=== PATIENT | female | born 1955 | race Caucasian/White ===

== ENCOUNTER 2020-05-29 11:00 | Outpatient (REF) | payer MEDICARE, SELFPAY ==
[2020-05-29 13:57] LABS: MANUAL DIFF FLAG NO
[2020-05-29 14:13] LABS: Basophils Absolute Auto 0.1 X10*3/uL (0.0-0.2); Basophils Percent Auto 0.6 % (0-2); Eosinophils Absolute Auto 0.2 X10*3/uL (0.0-0.4); Eosinophils Percent Auto 1.6 % (0-4); Hemoglobin 13.3 g/dl (12.0-16.0); Imm Gran Abs Auto 0.03 X10*3/uL (0.00-0.03); Imm Gran Pct Auto 0.3 % (0.0-0.4); Lymphocytes Absolute Auto 3.6 X10*3/uL (1.2-4.9); Lymphocytes Percent Auto 36.2 % (20-40); Mean Corpuscular HGB Conc 31.7 g/dl (31.0-35.0); Mean Corpuscular Hemoglobin 30.2 pg (27.0-33.0); Mean Corpuscular Volume 95.2 fL (80-98); Mean Platelet Volume 8.8 fL (9.4-12.3); Monocytes Absolute Auto 0.8 X10*3/uL (0.1-1.2); Monocytes Percent Auto 7.8 % (2-11); Neutrophils Absolute Auto 5.4 X10*3/uL (2.0-8.3); Neutrophils Percent Auto 53.5 % (45-73); Platelet Count 316 X10*3/uL (160-400); Red Blood Count 4.41 X10*6/uL (4.20-5.50); Red Cell Distribution Width 12.8 % (11.0-16.0)
[2020-05-29 14:24] LABS: Alanine Aminotransferase 25 U/L (0-31); Albumin Level 4.6 g/dL (3.5-5.0); Alkaline Phosphatase 68 U/L (39-117); Anion Gap 12 (12-20); Aspartate Amino Transferase 27 U/L (5-31); Bilirubin Total 0.6 mg/dL (0.0-1.0); Blood Urea Nitrogen 14 mg/dL (9-16); Calcium 9.6 mg/dL (8.4-10.2); Carbon Dioxide 24 mmol/L (22-29); Chloride 106 mmol/L (96-108); Cholesterol 179 mg/dL; Estimated Glomerular Filt Rate > 60; Glucose Fasting 107 mg/dL (60-99); HDL Cholesterol 48 mg/dL; LDL Cholesterol Calculated 112 mg/dl; Potassium 4.5 mmol/L (3.3-5.1); Sodium 137 mmol/L (135-145); Total Protein 7.5 g/dL (6.5-8.0); Triglycerides 99 mg/dL
[2020-05-29 14:46] LABS: Vitamin D 25-OH Total 25.5 ng/mL (>30)
== END 2020-05-29 11:01 | disposition home or self-care (01) ==
LOC: HO.HMGCLDS 11:00
PROVIDERS: PCP Internal Medicine; Visit Provider Internal Medicine
DX: Z00.01 Encounter for general adult medical examination with abnormal findings (principal); Z78.0 Asymptomatic menopausal state; M81.0 Age-related osteoporosis without current pathological fracture; D12.6 Benign neoplasm of colon, unspecified
CPT/HCPCS: 36415; 80053; 80061; 82306; 85025

== ENCOUNTER 2020-07-18 13:10 | Outpatient (REF) | payer MEDICARE, SELFPAY ==
--- NOTE | ~2020-07-18 | MM_ITS ---
EXAMINATION: MM SCREENING DIGITAL BREAST TOMOSYNTHESIS, BILATERAL CLINICAL INFORMATION: Screening. Asymptomatic. The lifetime risk of breast cancer based on the Tyrer-Cuzick Model is 5%. COMPARISON: Mammography: 04/22/2018, 04/13/2017, 03/12/2016 TECHNIQUE: Digital breast tomosynthesis is performed in both the craniocaudal and mediolateral oblique views along with computer-aided detection (CAD). Synthesized 2D images are generated from the tomosynthesis. FINDINGS: There are scattered areas of fibroglandular density (ACR BI-RADS breast composition Category b). There are no significant masses, abnormal calcifications, or other abnormalities. The axilla and skin contours are unremarkable. No significant changes. MM/MM tomosynthesis screening BI IMPRESSION: No mammographic evidence of malignancy. ASSESSMENT: BI-RADS 1: Negative RECOMMENDATION: Routine annual mammography screening. This patient's information was entered into a reminder system with a target due date for their next mammogram.
--- NOTE | ~2020-07-18 | MM_ITS ---
EXAMINATION: BONE DENSITOMETRY CLINICAL INDICATION: Age-related osteoporosis without current pathological fracture. COMPARISON: Previous BD dated 12/09/2018 and baseline BD dated 12/15/2006. TECHNIQUE: Using a [employer] DXA System (software version: 13.1) manufactured by [employer], dual-energy x-ray absorptiometry was performed of the lumbar spine and left hip. The images are of good technical quality. Summary results are attached. FINDINGS: AP SPINE L1-L4: Current: BMD 0.979 g/cm2, Z-score 0.2, T-score -1.7, osteopenia, 1.2% increase from previous, 0.8% increase from baseline (<5% change is not significant). Prior: BMD 0.967 g/cm2. Baseline: BMD 0.971 g/cm2. LEFT FEMUR, NECK: Current: BMD 0.653 g/cm2, Z-score -1.1, T-score -2.8, osteoporosis. Prior: BMD 0.679 g/cm2. Baseline: BMD 0.710 g/cm2. LEFT FEMUR, TOTAL: Current: BMD 0.702 g/cm2, Z-score -1.0, T-score -2.4, osteopenia, 0.4% increase from previous, 12.7% decrease from baseline (<5% change is not significant). Prior: BMD 0.699 g/cm2. Baseline: BMD 0.804 g/cm2. IDENTIFIED RISK FACTORS: Height loss. Menopause. HISTORY OF FRACTURE: None listed. MEDICATIONS: Multivitamin. Vitamin D. MM/XR DEXA axial skeleton IMPRESSION: 1. DIAGNOSIS: Osteoporosis based on the lowest T-score value of -2.8 in the femoral neck applying World Health Organization criteria. 2. 10-YEAR FRACTURE RISK PREDICTION, FRAX: Major osteoporotic fracture (clinical spine, forearm, hip or shoulder) 15.5%. Hip fracture 4.2%. 3. Treatment Recommendations: NOF guidelines recommend consideration for treatment in postmenopausal women and men age 50 and older presenting with the following: -A hip or vertebral (clinical or morphometric) fracture. -T-score less than or equal to -2.5 at the femoral neck or spine after appropriate evaluation to exclude secondary causes. -Low bone mass at the hip or spine and a 10-year fracture probability by FRAX of greater than or equal to 3% for hip fracture or greater than or equal to 20% for major osteoporotic fracture based on the [place] adapted WHO algorithm. 4. Other Recommendations: All treatment decisions require clinical judgment and consideration of individual patient factors, including patient preferences, comorbidities, previous drug use, risk factors not captured in the FRAX model (e.g. frailty, falls, vitamin D deficiency, increased bone turnover, interval significant decline in bone density) and possible under or overestimation of fracture risk by FRAX. Additional medical evaluation for secondary cause of low bone mineral density may be appropriate. FUTURE SCAN RECOMMENDATION: People with diagnosed cases of osteoporosis or at high risk for fracture should have regular bone mineral density tests. For patients eligible for Medicare, routine testing is allowed once every 2 years. The testing frequency can be increased to one year for patients who have rapidly progressing disease, those who are receiving or discontinuing medical therapy to restore bone mass, or have additional risk factors.
== END 2020-07-18 13:11 | disposition home or self-care (01) ==
LOC: HO.MAMMO 13:10
PROVIDERS: Visit Provider Internal Medicine
DX: M81.0 Age-related osteoporosis without current pathological fracture (principal); Z78.0 Asymptomatic menopausal state; Z12.31 Encounter for screening mammogram for malignant neoplasm of breast
CPT/HCPCS: 77063; 77067; 77080

== ENCOUNTER 2020-11-01 09:58 | Outpatient (REF) | payer MEDICARE, SELFPAY ==
[2020-11-01 11:32] LABS: Prothrombin Time 11.2 SEC (9.9-13.0)
[2020-11-04 13:51] LABS: Alpha Fetoprotein 3.6 ng/mL
== END 2020-11-01 09:59 | disposition home or self-care (01) ==
LOC: HO.HMGCLDS 09:58
PROVIDERS: PCP Internal Medicine; Visit Provider Internal Medicine
DX: K74.00 Hepatic fibrosis, unspecified (principal); Z86.19 Personal history of other infectious and parasitic diseases
CPT/HCPCS: 36415; 82105; 85610

== ENCOUNTER 2020-11-20 08:29 | Outpatient (REF) | payer MEDICARE, SELFPAY ==
--- NOTE | ~2020-11-20 | US_ITS ---
EXAMINATION: US ABDOMEN COMPLETE CLINICAL INFORMATION: History of hepatitis C. COMPARISON: CT abdomen and pelvis 06/29/2018. Ultrasound abdomen complete 11/26/2017 and 05/06/2016. TECHNIQUE: Real-time imaging of the abdominal viscera. FINDINGS: PANCREAS: The head and body the pancreas are normal. The tail is not well seen due to bowel gas. ABDOMINAL AORTA: The proximal, mid, and distal segments are normal in caliber. INFERIOR VENA CAVA: Visualized portions are normal. LIVER: The liver is normal in size. The liver contour is normal. Parenchymal echogenicity is normal. There are small cysts in the left lobe measuring 5 mm in the right lobe measuring 6 mm There is no intrahepatic biliary duct dilatation seen. GALLBLADDER: Not seen. The patient does not give history of cholecystectomy. COMMON BILE DUCT: Normal in caliber measuring 0.6 cm in diameter. RIGHT KIDNEY: Normal. No hydronephrosis. No renal calculi or focal parenchymal lesions. The kidney measures 9.5 cm in maximum dimension. LEFT KIDNEY: Normal. No hydronephrosis. No renal calculi or focal parenchymal lesions. The kidney measures 9.1 cm in maximum dimension. SPLEEN: Normal. The spleen measures 7.7 cm in maximum dimension. FREE FLUID: None. US/US abdomen complete IMPRESSION: 2 small liver cysts otherwise normal-appearing liver. Gallbladder not seen similar to previous exams. Limited visualization of the tail the pancreas.
== END 2020-11-20 08:30 | disposition home or self-care (01) ==
LOC: HO.US 08:29
PROVIDERS: PCP Internal Medicine; Visit Provider Internal Medicine
DX: K76.89 Other specified diseases of liver (principal); Z86.19 Personal history of other infectious and parasitic diseases
CPT/HCPCS: 76700

== ENCOUNTER 2020-12-04 08:13 | Day surgery (SDC) | payer MEDICARE, SELFPAY ==
[2020-11-29 11:03] VITALS: BMI 22.4
--- NOTE | 2020-12-03 12:35 | HO.ANESPROP2 ---
Documented by User: Christi Davalos NP 12/03/20 12:36 HPI - Anesthesia Eval Consult details Narrative: 65yo F for Colonoscopy PMFSH Active Problems Active Problems: All Active Problems (Updated 11/29/20 @ 11:06 by aJnia Browning RN) Other allergic rhinitis (Acute) Tubular adenoma of colon (Acute) Postmenopause (Acute) Breast cancer screening by mammogram (Acute) Osteoporosis (Acute) Past Medical History Medical History (Updated 11/29/20 @ 11:06 by Jania Browning RN) Breast cancer screening by mammogram COPD (chronic obstructive pulmonary disease) COVID-19 vaccine series completed Hepatitis C Osteoporosis Postmenopause Tubular adenoma of colon Surgical History Surgical History (Updated 11/29/20 @ 11:00 by Jania Browning RN) H/O colonoscopy Hx of blepharoplasty Hx of dilation and curettage Hx of tubal ligation Social History Social History (Updated 05/28/20 @ 11:25 by Tiana Chaudhari CMA) Are you a primary patient care nursing assistant to a significant other at home: No Do you presently have visiting nurse or other home services: No Alcohol intake: former Patient Tobacco Use Status: Former Tobacco user Tobacco use type: Cigarette Use of substances other than those prescribed or required for medical reasons: No Have you been hit, kicked, punched, or otherwise hurt by someone within the past year? If so, by whom?: No Are you DNR?: No Advance Directives Information Provided: Yes (informational brochure mailed) Advance Directives on File: No Recently lost weight without trying: No Eating poorly because of decreased appetite: No Nutrition Risks: No Nutritional Risk Poor oral hygiene: No (wears dentures) Meds Allergies Allergy/AdvReac Type Severity Reaction Status Date / Time No Known Allergies Allergy Mild N/A Verified 12/04/20 08:23 Home Medications Medication Instructions Recorded Confirmed Last Taken Type cholecalciferol (vitamin D3) 25 25 mcg PO DAILY 05/28/20 11/29/20 Unknown History mcg (1,000 unit) capsule magnesium oxide 400 mg PO DAILY 11/29/20 11/29/20 Unknown History Exam Exam Date and Time: December 03, 2020 1235 Height,Weight and Vital Signs: Height 5 ft 2 in Weight 55.701 kg Assessment and Plan Assessment Anesthesia Assessment: Chart Reviewed Documented by User: Mag Elizondo MD 12/04/20 09:34 PMFSH Past Medical History Medical History (Updated 11/29/20 @ 11:06 by Jania Browning RN) Breast cancer screening by mammogram COPD (chronic obstructive pulmonary disease) COVID-19 vaccine series completed Hepatitis C Osteoporosis Postmenopause Tubular adenoma of colon Family History Family history of problems with anesthesia: No Surgical History Surgical History (Updated 11/29/20 @ 11:00 by Jania Browning RN) H/O colonoscopy Hx of blepharoplasty Hx of dilation and curettage Hx of tubal ligation History of Problems with Anesthesia: No Social History Social History (Updated 05/28/20 @ 11:25 by Tiana Chaudhari CMA) Are you a primary patient care nursing assistant to a significant other at home: No Do you presently have visiting nurse or other home services: No Alcohol intake: former Patient Tobacco Use Status: Former Tobacco user Tobacco use type: Cigarette Use of substances other than those prescribed or required for medical reasons: No Have you been hit, kicked, punched, or otherwise hurt by someone within the past year? If so, by whom?: No Are you DNR?: No Advance Directives Information Provided: Yes (informational brochure mailed) Advance Directives on File: No Recently lost weight without trying: No Eating poorly because of decreased appetite: No Nutrition Risks: No Nutritional Risk Poor oral hygiene: No (wears dentures) Meds Allergies Allergy/AdvReac Type Severity Reaction Status Date / Time No Known Allergies Allergy Mild N/A Verified 12/04/20 08:23 Home Medications Medication Instructions Recorded Confirmed Last Taken Type cholecalciferol (vitamin D3) 25 25 mcg PO DAILY 05/28/20 11/29/20 Unknown History mcg (1,000 unit) capsule magnesium oxide 400 mg PO DAILY 11/29/20 11/29/20 Unknown History Exam Airway Mallampati Class: II TM Dist: >3cm Denture: Upper and Lower Heart: rrr Lungs: cta Assessment and Plan Assessment Anesthesia Assessment: Anesthesia Plan Discussed and Chart Reviewed Final Anesthetic Review Family History of Problems with Anesthesia: No History of Problems with Anesthesia: No NPO: Yes ASA Class: III Final Preanesthetic Review: No Changes in Pt Med Stat, Meds/Allgs Chart Reviewed and Consent Obtained/Reviewed Patient Risk: Intermediate Procedure Risk: Intermediate Anesthetic Plan Anesthetic Plan: MAC: Disposition: Standard PACU
[2020-12-04 08:24] VITALS: BP 123/84; PULSE 90; RESP 16; TEMP 36.8; O2SAT 98
[2020-12-04] MEDS: Lactated Ringers 1,000 ML 100 ML IVCONT (08:45)
[2020-12-04 10:22] VITALS: BP 83/56; PULSE 82; RESP 16; TEMP 37.2; O2SAT 97
--- NOTE | 2020-12-04 10:24 | PM.OP ---
Brief Operative Note Date of Service: 12/04/20 Pre-op diagnosis: Screening Post-op diagnosis: other (Colon polyps) Procedure: Colonoscopy to the cecum and TI with cold snare polypectomy and bx/removal of polyps Surgeon: Severo Carvalho Anesthesia: MAC Was an Final Installer Inspector used for this Procedure?: No Estimated blood loss (mL): 3.0 Pathology: other (A. Transverse colon polyp B. Ascending colon polyp C. Rectal polyp) Condition: stable Disposition: PACU
[2020-12-04 10:36] VITALS: BP 101/69; PULSE 72; RESP 16; TEMP 37.2; O2SAT 100
--- NOTE | 2020-12-04 10:36 | OP_ITS ---
SURGEON: Severo Carvalho MD INDICATIONS: The patient presents for evaluation of personal history of tubular adenoma of the colon and colorectal cancer screening. Full consent has been obtained from her for this, including risks of bleeding and perforation. PREOPERATIVE DIAGNOSIS: POSTOPERATIVE DIAGNOSIS: PROCEDURE PERFORMED: Colonoscopy to cecum and terminal ileum with snare polypectomy, and biopsy and removal of polyp. ESTIMATED BLOOD LOSS: COMPLICATIONS: ANESTHESIA: Monitored anesthesia care. ASSISTANTS: SPECIMENS: PREOPERATIVE DIAGNOSES: Personal history of colon polyps and colorectal cancer screening. POSTOPERATIVE DIAGNOSES: Personal history of colon polyps and colorectal cancer screening, colon polyps, diverticulosis, and internal hemorrhoids. DESCRIPTION OF PROCEDURE: The patient was placed in the left lateral decubitus position. The digital rectal exam revealed no abnormalities. The Olympus video pediatric colonoscope was entered into the rectum and advanced easily to the cecum. Once in the cecum, I did identify normal-appearing cecal pouch with appendiceal orifice and a normal-appearing ileocecal valve. The terminal ileum was cannulated and appeared normal. The scope was withdrawn back in the colon. The entire cecum and ileocecal valve appeared normal. The scope was slowly withdrawn assessing all mucosal surfaces carefully. Preparation was excellent. In the proximal ascending colon, was a flat approximately 3 or 4 mm polyp, which was biopsied and completely removed with cold biopsy forceps. In the transverse colon, was an approximately 5 or 6 mm polyp, which was removed with a cold snare polypectomy. There was no sign of any residual polyp nor bleeding. The polyp was retrieved by suction. There was a mild amount of sigmoid diverticulosis. There was no sign of any colitis nor angiodysplasia. In the rectum, there was an approximately 3 or 4 mm polyp, which was biopsied and completely removed with cold biopsy forceps. The scope was retroflexed visualizing internal hemorrhoids, but no other pathology. The scope was straightened and withdrawn from the patient. She tolerated the procedure well and was returned to recovery area in stable condition. IMPRESSION: 1. Colon polyps. 2. Diverticulosis. 3. Internal hemorrhoids. PLAN: The results of the pathology will be checked. I would recommend a repeat colonoscopy in 5 years. She was advised not to use any aspirin nor NSAIDs for 1 week. She was advised to see me in 1 year for followup in regard to her underlying previous chronic hepatitis C and some associated liver fibrosis. MD TETE Koroma/ANUJA / [id number]
== END 2020-12-04 10:58 | disposition home or self-care (01) ==
PROVIDERS: PCP Internal Medicine; Visit Provider Internal Medicine
PROC: 0DJD8ZZ Inspection of Lower Intestinal Tract, Via Natural or Artificial Opening Endoscopic (ICD-10-PCS; CPT 45378; principal; 2020-12-04 09:30)
DX: Z12.11 Encounter for screening for malignant neoplasm of colon (principal); Z86.010 Personal history of colon polyps; D12.2 Benign neoplasm of ascending colon; D12.3 Benign neoplasm of transverse colon; K62.1 Rectal polyp; K57.30 Diverticulosis of large intestine without perforation or abscess without bleeding; K64.8 Other hemorrhoids; K74.00 Hepatic fibrosis, unspecified; B18.2 Chronic viral hepatitis C; J44.9 Chronic obstructive pulmonary disease, unspecified; M81.0 Age-related osteoporosis without current pathological fracture; Z79.51 Long term (current) use of inhaled steroids; Z79.899 Other long term (current) drug therapy; Z87.891 Personal history of nicotine dependence
CPT/HCPCS: 45385; 45380; 88305

== ENCOUNTER 2020-12-16 07:10 | Outpatient (REF) | payer MEDICARE, SELFPAY ==
--- NOTE | ~2020-12-16 | CT_ITS ---
EXAMINATION: CT CHEST SCREENING CLINICAL INFORMATION: 50 pack year history. Former smoker. Quit 3 years ago. COMPARISON: Previous CT scan of the chest most recent May [address] of the abdomen and pelvis June 2018 TECHNIQUE: Multidetector volumetric CT imaging of the chest is performed without contrast using low dose technique. Additional 2D coronal and sagittal reformatted images and axial 3D maximum intensity projection (MIP) images are generated on the CT workstation. This CT examination was performed using dose optimization techniques as appropriate, variously including the following: *Automated exposure control *Adjustment of mA and/or kV according to patient size (this includes techniques or standardized protocols for targeted exams where dose is matched to indication/reason for exam; i.e. extremities or head) *Use of iterative reconstruction technique DLP: 37 mGy-cm FINDINGS: LUNGS: There is evidence of emphysema. There are small bilateral pulmonary nodules that are stable. The largest pulmonary nodule is a 4 mm right lower bladder subpleural right lower lobe nodule adjacent to the major fissure axial image 265 series 5 and in the right lower lobe for example axial image [id number] series 5 as subsequent late described.. There are clustered peribronchial nodules seen in the posterior medial right lower lobe. There is associated mild focal bronchiectasis may represent areas of bronchial soft tissue opacification or mucus plugging. This is similar to previous exam. There is scarring or chronic subsegmental atelectasis in the anterior segment of the right upper lobe and lingula. No tracheal or central endobronchial lesion is seen. No new pulmonary nodule is seen. MEDIASTINUM: There is mild coronary artery calcification. The mediastinum is otherwise normal. PLEURA: There is no pleural effusion. No pleural mass or thickening. AXILLA: No lymphadenopathy. UPPER ABDOMEN: There is a 6 mm low-attenuation lesion high in the left lobe of liver axial image 48 series 3. This is stable from previous CT June 2018 probably represents a cyst. Images through the upper abdomen are otherwise unremarkable. OSSEOUS STRUCTURES: There is mild curvature of the thoracic spine to the right and degenerative changes. CT/CT lung screening IMPRESSION: Emphysema. Stable small pulmonary nodules or micronodules. Stable clustered right lower lobe nodules in the posterior medial right lower lobe probably related to airways disease. Mild coronary artery calcification. ASSESSMENT: Lung-RADS category 2. RECOMMENDATION: Annual low-dose chest CT follow-up recommended.
== END 2020-12-16 07:11 | disposition home or self-care (01) ==
LOC: HO.CT 07:10
PROVIDERS: PCP Internal Medicine; Visit Provider Physician Assistant Medical
DX: Z12.2 Encounter for screening for malignant neoplasm of respiratory organs (principal); F17.210 Nicotine dependence, cigarettes, uncomplicated
CPT/HCPCS: 71271

== ENCOUNTER 2021-05-29 12:43 | Outpatient (REF) | payer MEDICARE, SELFPAY ==
[2021-05-29 13:57] LABS: Alanine Aminotransferase 24 U/L (0-31); Anion Gap 12 (12-20); Aspartate Amino Transferase 29 U/L (5-31); Blood Urea Nitrogen 16 mg/dL (9-16); Calcium 9.7 mg/dL (8.4-10.2); Carbon Dioxide 24 mmol/L (22-29); Chloride 108 mmol/L (96-108); Cholesterol 185 mg/dL; Estimated Glomerular Filt Rate > 60; Glucose Fasting 110 mg/dL (60-99); HDL Cholesterol 42 mg/dL; LDL Cholesterol Calculated 118 mg/dl; Potassium 4.2 mmol/L (3.3-5.1); Sodium 140 mmol/L (135-145); Triglycerides 128 mg/dL
[2021-05-29 14:13] LABS: Vitamin D 25-OH Total 38.3 ng/mL (>30)
== END 2021-05-29 12:44 | disposition home or self-care (01) ==
LOC: HO.HMGCLDS 12:43
PROVIDERS: PCP Internal Medicine; Visit Provider Internal Medicine
DX: Z00.01 Encounter for general adult medical examination with abnormal findings (principal); M81.0 Age-related osteoporosis without current pathological fracture; Z78.0 Asymptomatic menopausal state; Z71.89 Other specified counseling
CPT/HCPCS: 36415; 80048; 80061; 82306; 84450; 84460

== ENCOUNTER 2021-07-21 12:56 | Outpatient (REF) | payer MEDICARE, SELFPAY ==
--- NOTE | ~2021-07-21 | MM_ITS ---
EXAMINATION: MM SCREENING DIGITAL BREAST TOMOSYNTHESIS, BILATERAL CLINICAL INFORMATION: Screening. Asymptomatic. The lifetime risk of breast cancer based on the Tyrer-Cuzick Model is 6.2%. COMPARISON: Mammography: July 18, 2020 and studies dating back to November 08, 2013 TECHNIQUE: Digital breast tomosynthesis is performed in both the craniocaudal and mediolateral oblique views along with computer-aided detection (CAD). Synthesized 2D images are generated from the tomosynthesis. FINDINGS: There are scattered areas of fibroglandular density (ACR BI-RADS breast composition Category b). There are no significant masses, abnormal calcifications, or other abnormalities. MM/MM tomosynthesis screening BI IMPRESSION: There are no significant changes from prior study. ASSESSMENT: BI-RADS 1: Negative RECOMMENDATION: Routine annual mammography screening. This patient's information was entered into a reminder system with a target due date for their next mammogram.
== END 2021-07-21 12:57 | disposition home or self-care (01) ==
LOC: HO.MAMMO 12:56
PROVIDERS: PCP Internal Medicine; Visit Provider Internal Medicine
DX: Z12.31 Encounter for screening mammogram for malignant neoplasm of breast (principal)
CPT/HCPCS: 77063; 77067

== ENCOUNTER 2022-03-11 08:43 | Outpatient (REF) | payer MEDICARE, SELFPAY ==
[2022-03-11 11:18] LABS: MANUAL DIFF FLAG NO
[2022-03-11 11:33] LABS: Basophils Absolute Auto 0.1 X10*3/uL (0.0-0.2); Basophils Percent Auto 1.1 % (0-2); Eosinophils Absolute Auto 0.2 X10*3/uL (0.0-0.4); Eosinophils Percent Auto 1.8 % (0-4); Hematocrit 39.3 % (37.0-47.0); Hemoglobin 12.9 g/dl (12.0-16.0); Imm Gran Abs Auto 0.03 X10*3/uL (0.00-0.03); Imm Gran Pct Auto 0.4 % (0.0-0.4); Lymphocytes Absolute Auto 3.1 X10*3/uL (1.2-4.9); Lymphocytes Percent Auto 37.6 % (20-40); Mean Corpuscular HGB Conc 32.8 g/dl (31.0-35.0); Mean Corpuscular Hemoglobin 30.7 pg (27.0-33.0); Mean Corpuscular Volume 93.6 fL (80.0-98.0); Mean Platelet Volume 8.5 fL (9.4-12.3); Monocytes Absolute Auto 0.7 X10*3/uL (0.1-1.2); Neutrophils Absolute Auto 4.1 x10*3/uL (2.0-8.3); Neutrophils Percent Auto 51.1 % (45-73); Platelet Count 273 X10*3/uL (160-400); Red Cell Distribution Width 12.5 % (11.0-16.0); White Blood Count 8.1 X10*3/uL (4.8-10.8)
[2022-03-11 11:39] LABS: INTERNATIONAL NORM RATIO 1.1 (0.9-1.1); Prothrombin Time 12.6 SEC (10.0-13.1)
[2022-03-11 12:21] LABS: Alanine Aminotransferase 22 U/L (0-31); Albumin Level 4.2 g/dL (3.5-5.0); Alkaline Phosphatase 58 U/L (39-117); Aspartate Amino Transferase 27 U/L (5-31); Bilirubin Direct < 0.2 mg/dL (0.0-0.5); Bilirubin Total 0.5 mg/dL (0.0-1.0); Total Protein 6.9 g/dL (6.5-8.0)
[2022-03-13 14:02] LABS: Alpha Fetoprotein 2.9 ng/mL
[2022-03-17 16:34] LABS: FIB-ALT 21 U/L (6-29); FIB-Alpha-2-Macroglobulin 309 mg/dL (106-279); FIB-Apolipoprotein A1 142 mg/dL (101-198); FIB-GGT 12 U/L (3-65); FIB-Haptoglobin 137 mg/dL (43-212); FIB-Total Bilirubin 0.4 mg/dL (0.2-1.2); Liver Fibrosis Score 0.32; Liver Fibrosis Stage F1-F2; Nec Inflam Act Grade A0; Nec Inflam Act Score 0.09
== END 2022-03-11 08:44 | disposition home or self-care (01) ==
LOC: HO.HMGCLDS 08:43
PROVIDERS: PCP Internal Medicine; Visit Provider Internal Medicine
DX: K74.00 Hepatic fibrosis, unspecified (principal); Z86.19 Personal history of other infectious and parasitic diseases
CPT/HCPCS: 36415; 80076; 81596; 82105; 85025; 85610

== ENCOUNTER 2022-03-13 07:44 | Outpatient (REF) | payer MEDICARE, SELFPAY ==
--- NOTE | ~2022-03-13 | CT_ITS ---
EXAMINATION: CT CHEST SCREENING CLINICAL INFORMATION: Nicotine dependence, cigarettes, uncomplicated; 1 Pack per day x 50 years. COMPARISON: None. TECHNIQUE: Multidetector volumetric CT imaging of the chest is performed without contrast using low dose technique. Additional 2D coronal and sagittal reformatted images and axial 3D maximum intensity projection (MIP) images are generated on the CT workstation. This CT examination was performed using dose optimization techniques as appropriate, variously including the following: *Automated exposure control *Adjustment of mA and/or kV according to patient size (this includes techniques or standardized protocols for targeted exams where dose is matched to indication/reason for exam; i.e. extremities or head) *Use of iterative reconstruction technique DLP: 43 mGy-cm FINDINGS: LUNGS: The lungs are well-expanded and clear of acute pneumonic process. There are no pulmonary nodules, mass or consolidation. Minimal atelectatic changes seen in the right lung base. There is a 1 mm punctate calcification right lower lobe. MEDIASTINUM: The thyroid lobes are symmetrical and normal. The central trachea and the bronchi are widely patent. The heart size and the great vessels are normal caliber. No abnormal size mediastinal or hilar lymphadenopathy seen. CORONARY ARTERY CALCIFICATION: There is mild coronary artery calcifications present. PLEURA: There is no pleural effusion. No pleural mass or thickening. AXILLA: No lymphadenopathy. UPPER ABDOMEN: Visualized liver, spleen, pancreas and bilateral adrenal glands are unremarkable. OSSEOUS STRUCTURES: No aggressive lytic or sclerotic process seen. CT/CT lung screening IMPRESSION: Minimal atelectatic changes right lung base. No pulmonary nodule, mass or abnormal mediastinal adenopathy. ASSESSMENT: Lung-RADS category 1: Negative RECOMMENDATION: Low-dose annual CT chest.
== END 2022-03-13 07:45 | disposition home or self-care (01) ==
LOC: HO.CT 07:44
PROVIDERS: PCP Internal Medicine; Visit Provider Physician Assistant Medical
DX: Z12.2 Encounter for screening for malignant neoplasm of respiratory organs (principal); F17.210 Nicotine dependence, cigarettes, uncomplicated
CPT/HCPCS: 71271

== ENCOUNTER 2022-03-31 07:45 | Outpatient (REF) | payer MEDICARE, SELFPAY ==
--- NOTE | ~2022-03-31 | US_ITS ---
EXAMINATION: US COMPLETE ABDOMEN WITH LIVER ELASTOGRAPHY CLINICAL INFORMATION: Hepatitis C and fibrosis COMPARISON: Previous abdominal ultrasound most recent November [address] of the abdomen and pelvis June 2018 TECHNIQUE: Real-time imaging of the abdominal viscera. Noninvasive ultrasound liver fibrosis assessment is performed using [employer] point quantification shear wave elastography (2D-SWE) with a C5-2 MHz transducer. Multiple elastography samples are obtained. FINDINGS: PANCREAS: The visualized pancreatic head and body are normal in appearance. The remainder of the pancreas is obscured from visualization by the overlying bowel gas. ABDOMINAL AORTA: The proximal, middle, and distal aortic segments are normal in caliber. There is evidence of atherosclerotic disease. INFERIOR VENA CAVA: Visualized portions are normal. LIVER: There are 2 small cysts measuring 5 mm and 7 x 6 x 9 mm liver. No other focal liver lesion. The liver is normal in size, shape and echotexture. The right lobe measures 11 cm in length. The left lobe measures 7 cm in length. Portal flow is normal/hepatopedal Shear wave liver elastography median stiffness is 1.8 m/s (reference: normal median stiffness is 1.3 m/s or less). IQR/median stiffness to assess sampling precision is 0.08 (reference: good quality data set is IQR/median stiffness of 0.15 or less). GALLBLADDER: Not seen. COMMON BILE DUCT: Normal in caliber measuring 0.5 cm in diameter. RIGHT KIDNEY: Normal. No hydronephrosis. No renal calculi or focal parenchymal lesions. The kidney measures 10 cm in maximum dimension. LEFT KIDNEY: Normal. No hydronephrosis. No renal calculi or focal parenchymal lesions. The kidney measures 9.4 cm in maximum dimension. SPLEEN: Normal. The spleen measures 8 cm in maximum dimension. FREE FLUID: None. US/US abdomen comp w elastography IMPRESSION: 1. Impression: Morphologically normal-appearing liver. Small liver cysts. Gallbladder not seen similar to previous exams. Limited visualization tail the pancreas. 2. Liver elastography: Minimally elevated liver stiffness. Adequate liver sampling. REFERENCE: Society of Radiologists in Ultrasound Liver Stiffness Thresholds (2019): LIVER STIFFNESS THRESHOLDS: *Liver Stiffness equal or less than 1.3 m/s: High probability of being normal. *Liver Stiffness less than 1.7 m/s: In the absence of other known clinical signs, rules out compensated advanced chronic liver disease. *Liver Stiffness 1.7-2.1 m/s: Suggestive of compensated advanced chronic liver disease but need further test for confirmation. *Liver Stiffness over 2.1 m/s: Rules in compensated advanced chronic liver disease. *Liver Stiffness over 2.4 m/s: Suggestive of clinically significant portal hypertension. QUALITY OF DATA SET: *IQR/Median value equal or less than 0.15 implies a quality data set. *IQR/Median value over 0.15 implies a poor quality data set. SIGNIFICANT CHANGE FROM PRIOR EXAM: Significant change if liver stiffness measurement is 10% or greater from prior exam. OTHER CONSIDERATIONS: The stage of liver fibrosis may be overestimated in the setting of acute hepatitis, liver inflammation, elevated liver function tests, hepatic vascular congestion, obstructive cholestasis, non-fasting state, and infiltrative diseases such as amyloidosis and lymphoma. In some patients with NAFLD, the liver stiffness thresholds for compensated advanced chronic liver disease may be lower. In causes other than viral hepatitis and NAFLD, liver stiffness thresholds are not well established.
== END 2022-03-31 07:46 | disposition home or self-care (01) ==
LOC: HO.US 07:45
PROVIDERS: Visit Provider Internal Medicine
DX: K74.00 Hepatic fibrosis, unspecified (principal); Z86.19 Personal history of other infectious and parasitic diseases
CPT/HCPCS: 76705; 76981

== ENCOUNTER 2022-06-03 06:50 | Outpatient (REF) | payer MEDICARE, SELFPAY ==
[2022-06-03 12:12] LABS: Alanine Aminotransferase 25 U/L (0-31); Anion Gap 11 (12-20); Aspartate Amino Transferase 31 U/L (5-31); Blood Urea Nitrogen 15 mg/dL (9-16); Calcium 9.4 mg/dL (8.4-10.2); Carbon Dioxide 26 mmol/L (22-29); Chloride 109 mmol/L (96-108); Cholesterol 176 mg/dL; Estimated Glomerular Filt Rate > 60; Glucose Fasting 97 mg/dL (60-99); HDL Cholesterol 38 mg/dL; LDL Cholesterol Calculated 119 mg/dl; Potassium 4.2 mmol/L (3.3-5.1); Sodium 142 mmol/L (135-145); Triglycerides 97 mg/dL
[2022-06-03 12:18] LABS: Vitamin D 25-OH Total 38.2 ng/mL (>30)
== END 2022-06-03 06:51 | disposition home or self-care (01) ==
LOC: HO.HMGCLDS 06:50
PROVIDERS: PCP Internal Medicine; Visit Provider Internal Medicine
DX: Z00.01 Encounter for general adult medical examination with abnormal findings (principal); D12.6 Benign neoplasm of colon, unspecified; J44.9 Chronic obstructive pulmonary disease, unspecified; M81.0 Age-related osteoporosis without current pathological fracture; Z78.0 Asymptomatic menopausal state
CPT/HCPCS: 36415; 80048; 80061; 82306; 84450; 84460

== ENCOUNTER 2022-07-20 10:37 | Outpatient (REF) | payer MEDICARE, SELFPAY ==
--- NOTE | ~2022-07-20 | MM_ITS ---
EXAMINATION: BONE DENSITOMETRY CLINICAL INDICATION: Osteoporosis. COMPARISON: Previous BD dated 07/18/2020 and baseline BD dated 12/15/2006. TECHNIQUE: Using a [employer] DXA System (software version: 13.1) manufactured by [employer], dual-energy x-ray absorptiometry was performed of the lumbar spine and left hip. The images are of good technical quality. Summary results are attached. FINDINGS: AP SPINE L1-L3 (excluding L4): The data of L1-L4 has been changed to exclude the L4 vertebral body because degenerative changes at this level may cause overestimation of the lumbar spine density. Current: BMD 0.8975 g/cm2, Z-score 0.4, T-score -1.6, osteopenia, 6.3% increase from previous, 4.3% increase from baseline (<5% change is not significant). Prior: BMD 0.917 g/cm2. Baseline: BMD 0.935 g/cm2. LEFT FEMUR, NECK: Current: BMD 0.677 g/cm2, Z-score -0.7, T-score -2.6, osteoporosis. Prior: BMD 0.653 g/cm2. Baseline: BMD 0.710 g/cm2. LEFT FEMUR, TOTAL: Current: BMD 0.723 g/cm2, Z-score -0.6, T-score -2.3, osteopenia, 3.0% increase from previous, 10.1% decrease from baseline (<5% change is not significant). Prior: BMD 0.702 g/cm2. Baseline: BMD 0.804 g/cm2. IDENTIFIED RISK FACTORS: Menopause, height loss, osteoporosis. HISTORY OF FRACTURE: None listed. MEDICATIONS: Vitamin D. MM/XR DEXA axial skeleton IMPRESSION: 1. DIAGNOSIS: Osteoporosis based on the lowest T-score value of -2.6 in the femoral neck applying World Health Organization criteria. 2. 10-YEAR FRACTURE RISK PREDICTION, FRAX: According to the guidelines, FRAX calculation should only be performed on patients in the osteopenia bone density category. Therefore, FRAX was not performed on this patient. 3. Treatment Recommendations: NOF guidelines recommend consideration for treatment in postmenopausal women and men age 50 and older presenting with the following: -A hip or vertebral (clinical or morphometric) fracture. -T-score less than or equal to -2.5 at the femoral neck or spine after appropriate evaluation to exclude secondary causes. -Low bone mass at the hip or spine and a 10-year fracture probability by FRAX of greater than or equal to 3% for hip fracture or greater than or equal to 20% for major osteoporotic fracture based on the [place] adapted WHO algorithm. 4. Other Recommendations: All treatment decisions require clinical judgment and consideration of individual patient factors, including patient preferences, comorbidities, previous drug use, risk factors not captured in the FRAX model (e.g. frailty, falls, vitamin D deficiency, increased bone turnover, interval significant decline in bone density) and possible under or overestimation of fracture risk by FRAX. Additional medical evaluation for secondary cause of low bone mineral density may be appropriate. FUTURE SCAN RECOMMENDATION: People with diagnosed cases of osteoporosis or at high risk for fracture should have regular bone mineral density tests. For patients eligible for Medicare, routine testing is allowed once every 2 years. The testing frequency can be increased to one year for patients who have rapidly progressing disease, those who are receiving or discontinuing medical therapy to restore bone mass, or have additional risk factors.
== END 2022-07-20 10:38 | disposition home or self-care (01) ==
LOC: HO.MAMMO 10:37
PROVIDERS: PCP Internal Medicine; Visit Provider Internal Medicine
DX: Z13.820 Encounter for screening for osteoporosis (principal); Z78.0 Asymptomatic menopausal state
CPT/HCPCS: 77080

== ENCOUNTER 2022-08-25 07:46 | Outpatient (REF) | payer MEDICARE, SELFPAY ==
--- NOTE | ~2022-08-25 | MM_ITS ---
EXAMINATION: MM SCREENING DIGITAL BREAST TOMOSYNTHESIS, BILATERAL CLINICAL INFORMATION: Screening. Asymptomatic. The lifetime risk of breast cancer based on the Tyrer-Cuzick Model is 4%. COMPARISON: Mammography: This study is compared with prior exams dating back to . TECHNIQUE: Digital breast tomosynthesis is performed in both the craniocaudal and mediolateral oblique views along with computer-aided detection (CAD). Synthesized 2D images are generated from the tomosynthesis. FINDINGS: There are scattered areas of fibroglandular density (ACR BI-RADS breast composition Category b). There are no significant masses, abnormal calcifications, or other abnormalities. MM/MM tomosynthesis screening BI IMPRESSION: No mammographic evidence of malignancy. ASSESSMENT: BI-RADS BI-RADS 1 - Negative RECOMMENDATION: Routine annual mammography screening. 1 year F/U This examination should not preclude the clinical evaluation of a suspicious palpable abnormality. This patient's information was entered into a reminder system with a target due date for their next mammogram.
== END 2022-08-25 07:47 | disposition home or self-care (01) ==
LOC: HO.MAMMO 07:46
PROVIDERS: PCP Internal Medicine; Visit Provider Internal Medicine
DX: Z12.31 Encounter for screening mammogram for malignant neoplasm of breast (principal)
CPT/HCPCS: 77063; 77067

== ENCOUNTER → 2022-08-25 08:30 | Outpatient (BNV) | payer MEDICARE, SELFPAY | PROVIDERS: PCP Internal Medicine; Visit Provider Radiology Diagnostic Radiology | DX: Z12.31 Encounter for screening mammogram for malignant neoplasm of breast (principal) | CPT/HCPCS: 77063; 77067 ==

== ENCOUNTER 2022-11-30 11:39 | Outpatient (AMB) | payer MEDICARE, SELFPAY ==
[2022-11-30 12:06] VITALS: BP 110/72; PULSE 67; O2SAT 97; BMI 22.2
--- NOTE | 2022-11-30 12:06 | MHC.PC.OV ---
Vital Signs 11/30/22 12:06 Height 5 ft 2 in Weight 121 lb 6 oz BMI 22.2 BP 110/72 Blood Pressure Location Lt brachial Position Sitting Pulse 67 Pulse Source Pulse Oximeter Pulse Oximetry (%) 97 Oxygen Delivery Method Room Air Intake Visit Reasons: 6 month COPD Intake Note: pt is here for a 6 month follow up for her Copd Allergies No Known Allergies Allergy (Mild, Verified 12/01/22 03:09) N/A Medication List - Last Reconciled 12/01/22 by Carolina Murrell MD albuterol sulfate 90 mcg/actuation 1 inh inhalation QID PRN alendronate 70 mg PO QWEEK cholecalciferol (vitamin D3) 25 mcg PO DAILY fezolinetant (Veozah) 45 mg PO DAILY fluticasone propionate 50 mcg/actuation 1 spray intranasal DAILY tiotropium bromide 2.5 mcg/actuation (Spiriva Respimat) 2 puffs inhalation DAILY Tobacco use date assessed: 11/30/22 Fall risk assessment: No Falls in past year Last assessed Fall Risk: 11/30/22 Dental Screening Dental Screen Date: 11/30/22 Did you have a dental visit in the last 12 months?: No Did you have a dental problem in the last 6 months where you did not have access to dental care?: No Was dental information given to patient?: No HPI 6 month COPD HPI Details 67-year-old lady here today for follow-up. She has COPD, has stopped cigarette smoking but is still vaping. She has been feeling well with no complaints of cough, no shortness of breath wheezing, taking Spiriva and uses her rescue inhaler sparingly. She is postmenopausal, complaining of frequent hot flashes, worse at night, would like to try the new medication for postmenopausal syndrome called Veozah. She has osteoporosis, with recent bone density scan done July 2022 showing improvement in her bone density in her lumbar spine and femur, currently on alendronate weekly. [facility] Medical History (Updated 11/30/22 @ 12:45 by Carolina Murrell MD) Vasomotor symptoms due to menopause Encounter for monitoring alendronate therapy COVID-19 vaccine series completed Hepatitis C COPD (chronic obstructive pulmonary disease) Tubular adenoma of colon Postmenopause Breast cancer screening by mammogram Osteoporosis Surgical History Hx of blepharoplasty Hx of tubal ligation Hx of dilation and curettage H/O colonoscopy Social History Housing: House Are you a primary director of medicare to a significant other at home: No Do you presently have visiting nurse or other home services: No Alcohol intake: former Patient Tobacco Use Status: Former Tobacco user Tobacco use type: Cigarette e-Cigarette/Vaping Use: Currently Using Second Hand Smoke Exposure: Yes service: No Current occupational status: retired Cognitive needs: No Hearing needs: Yes Vision needs: No Questionnaire Thrive Questionnaire Date Thrive assessed: 06/02/22 BLOSSOM-7 AMB Questionnaire BLOSSOM-7 Date BLOSSOM - 7 assessed: 06/02/22 Source: Developed by Drs. Severo Leos, Shruti Yeboah, Paul Reaves and colleagues, with an educational berry from [employer]. Review of Systems Const Denies body aches, Denies fatigue, Denies fever(s), Denies headache(s) and Denies weakness Eyes Denies change in vision ENT Denies dizziness, Denies headache(s), Denies nasal congestion, Denies nasal discharge and Denies sore throat Card Denies chest pain, Denies lightheadedness, Denies palpitations and Denies dyspnea Resp Denies chest congestion, Denies cough, Denies dyspnea and Denies wheezing GI Denies abdominal pain, Denies change in bowel habits and Denies heartburn Reports as per HPI, Denies urinary frequency, Denies dysuria and Denies urinary urgency Musc Denies back pain, Denies myalgias, Denies deformity, Denies arthralgias and Denies joint swelling Skin/Breast Denies lesions and Denies rash Neuro Denies dizziness, Denies headache(s) and Denies weakness Psych Reports as per HPI Endo Reports as per HPI, Denies fatigue, Denies polydipsia, Denies polyuria and Denies palpitations Tony/Lymph Denies easy bruising Aller/Immun Denies seasonal rhinorrhea and Denies wheezing Physical exam (Primary Care) Vital Signs: Last Vital Signs Pulse 67 11/30/22 12:06 BP 110/72 11/30/22 12:06 Pulse Ox 97 11/30/22 12:06 Oxygen Delivery Method Room Air 11/30/22 12:06 BMI result Body Mass Index 22.2 Tobacco/Smoking Status: Tobacco use Status Tobacco use date assessed 11/30/22 11/30/22 12:13 Patient Tobacco Use Status Former Tobacco user 11/30/22 12:07 Tobacco use type Cigarette 11/30/22 12:07 e-Cigarette/Vaping Use Currently Using 11/30/22 12:07 Thrive Assessment: Date of Thrive Assessment Date Thrive assessed 06/02/22 11/30/22 12:07 Const General: comfortable, no acute distress and alert Nutritional Appearance: average body habitus Orientation/consciousness: patient oriented x3 HENMT Head: Yes normocephalic and Yes atraumatic Ears: TM's normal bilaterally General nose exam: Normal external nose present and No nasal discharge present Face and sinus: Yes face symmetric Mouth: Normal oral and palatal mucosa present, oropharynx normal and moist mucous membranes Eyes General: appearance normal, both eyes and all related structures Neck Neck: Yes full ROM, Yes no lymphadenopathy and Yes supple Thyroid: Thyroid normal Chest Breast/axilla palpation: normal palpation of the breasts and normal palpation of the axillae Resp Effort & Inspection: normal respiratory effort and able to speak in complete sentences Auscultation: clear to auscultation bilaterally Cardio Other: S1-S2 present regular rate and rhythm GI Other: Normal bowel sounds, soft, nontender, with no mass palpated General: Yes no CVA tenderness Back/Spine/Pelvis Back: no CVA tenderness and No back tenderness Skin General skin exam: no rashes or lesions noted Neuro General: patient oriented x3, gait normal, moves all extremities, Normal light touch and pain sensation, no focal motor deficits and CN's II-XI intact bilaterally Extrem General: Yes full ROM, Yes no joint enlargement, Yes no pedal edema, Yes no calf tenderness and Yes normal gait Psych Appearance: grossly normal and well kempt Mental Status: mental status grossly normal Speech and movement: Normal speech and movement present Affect: normal affect Attitude: cooperative Thought process: Normal thought process present Thought content: Normal thought content present Assessment and Plan Assessment & Plan (1) Encounter for monitoring alendronate therapy: Code(s): Z51.81 - Encounter for therapeutic drug level monitoring; Z79.83 - intermediate (current) use of bisphosphonates Plan: Discuss recent bone density scan results with patient which showed improvement in bone density in both lumbar spine and left femur, will continue on alendronate, eating medication well and will repeat another bone density scan in 1-2 year. Advised to continue with vitamin-D supplements and doing regular weight-bearing exercise, strongly encouraged to stop vaping (2) COPD (chronic obstructive pulmonary disease): Code(s): J44.9 - Chronic obstructive pulmonary disease, unspecified Plan: Continue with present inhalers, we encouraged to stop vaping, date with her flu shot, and pneumonia vaccination, reminded to get her shingles 2nd dose and her COVID booster (3) Vasomotor symptoms due to menopause: Code(s): N95.1 - Menopausal and female climacteric states Plan: Prescription sent for Veozah for treatment of vasomotor symptoms due to menopause Orders: Orders Comprehensive [place]. Panel Fast 11/30/22 Z51.81 - Encounter for therapeutic drug level monitoring, Z79.83 - materials scheduler (current) use of bisphosphonates, J44.9 - Chronic obstructive pulmonary disease, unspecified, Z78.0 - Asymptomatic menopausal state, N95.1 - Menopausal and female climacteric states Vitamin D 25-OH Total 11/30/22 Z51.81 - Encounter for therapeutic drug level monitoring, Z79.83 - intermediate (current) use of bisphosphonates, J44.9 - Chronic obstructive pulmonary disease, unspecified, Z78.0 - Asymptomatic menopausal state, N95.1 - Menopausal and female climacteric states Medications: New fezolinetant (Veozah) 45 mg PO DAILY 30 tabs 3RF albuterol sulfate 90 mcg/actuation 1 inh inhalation QID PRN 8.5 grams 0RF shortness of breath or wheezing Changed From tiotropium bromide 2.5 mcg/actuation 2 puffs inhalation DAILY 4 grams 6RF To tiotropium bromide 2.5 mcg/actuation (Spiriva Respimat) 2 puffs inhalation DAILY 4 grams 6RF Coding Level of Care Code Est Pt Level 4 (91759) Diagnoses Encounter for monitoring alendronate therapy Z51.81; Z79.83 COPD (chronic obstructive pulmonary disease) J44.9 Vasomotor symptoms due to menopause N95.1
== END 2022-11-30 12:51 | disposition home or self-care (01) ==
PROVIDERS: Visit Provider Internal Medicine
DX: Z51.81 Encounter for therapeutic drug level monitoring (principal); Z79.83 Long term (current) use of bisphosphonates; J44.9 Chronic obstructive pulmonary disease, unspecified; N95.1 Menopausal and female climacteric states
CPT/HCPCS: 99214

== ENCOUNTER 2023-01-27 06:58 | Outpatient (REF) | payer MEDICARE, SELFPAY ==
[2023-01-27 11:48] LABS: Alanine Aminotransferase 31 U/L (0-31); Albumin Level 3.9 g/dL (3.5-5.0); Alkaline Phosphatase 60 U/L (39-117); Anion Gap 13 (12-20); Aspartate Amino Transferase 47 U/L (5-31); Bilirubin Total 0.3 mg/dL (0.0-1.0); Blood Urea Nitrogen 14 mg/dL (9-16); Calcium 9.4 mg/dL (8.4-10.2); Carbon Dioxide 23 mmol/L (22-29); Chloride 109 mmol/L (96-108); Estimated Glomerular Filt Rate > 60; Glucose Fasting 95 mg/dL (60-99); Potassium 3.8 mmol/L (3.3-5.1); Sodium 141 mmol/L (135-145); Total Protein 7.1 g/dL (6.5-8.0)
[2023-01-27 12:16] LABS: Vitamin D 25-OH Total 28.9 ng/mL (>30)
== END 2023-01-27 06:59 | disposition home or self-care (01) ==
LOC: HO.HMGCLDS 06:58
PROVIDERS: PCP Internal Medicine; Visit Provider Internal Medicine
DX: J44.9 Chronic obstructive pulmonary disease, unspecified (principal); N95.1 Menopausal and female climacteric states; Z51.81 Encounter for therapeutic drug level monitoring; Z79.83 Long term (current) use of bisphosphonates
CPT/HCPCS: 36415; 80053; 82306

== ENCOUNTER 2023-02-11 11:59 | Outpatient (AMB) | payer MEDICARE, SELFPAY ==
[2023-02-11 12:32] VITALS: BP 130/68; PULSE 85; TEMP 36.4; O2SAT 96; BMI 21.4
--- NOTE | 2023-02-11 12:32 | MHC.OFFWIV ---
Intake Vital Signs 02/11/23 12:32 Height 5 ft 2 in Weight 117 lb BMI 21.4 BP 130/68 Blood Pressure Location Lt brachial Position Sitting Pulse 85 Pulse Source Pulse Oximeter Temp 97.6 F Temp Source Temporal Artery Scan Pulse Oximetry (%) 96 Oxygen Delivery Method Room Air Intake Visit Reasons: EST/ear infection(lobby masked) Intake Note: pt is here today for ear infection started 1 week ago Patient Tobacco Use Status: Former Tobacco user Allergies No Known Allergies Allergy (Mild, Verified 02/11/23 12:45) N/A Do you need a note to return to daycare/school/sports/work: No HPI HPI Comments History of Present Illness Details She presents with for L ear pain ongoing x 1 week No discharge Used ear drops OTC without relief Heating pad without relief No congestion or ST associated said recently moved out of house and someone was sick with strep exposure PFSH Medical History (Updated 02/11/23 @ 12:59 by Tammy Avery PA-C) Vasomotor symptoms due to menopause Encounter for monitoring alendronate therapy COVID-19 vaccine series completed Hepatitis C COPD (chronic obstructive pulmonary disease) Tubular adenoma of colon Postmenopause Breast cancer screening by mammogram Osteoporosis Surgical History Hx of blepharoplasty Hx of tubal ligation Hx of dilation and curettage H/O colonoscopy Social History Housing: House Are you a primary special needs child caregiver to a significant other at home: No Do you presently have visiting nurse or other home services: No Alcohol intake: former Patient Tobacco Use Status: Former Tobacco user Tobacco use type: Cigarette e-Cigarette/Vaping Use: Currently Using Second Hand Smoke Exposure: Yes service: No Current occupational status: retired Cognitive needs: No Hearing needs: Yes Vision needs: No Review of Systems Const Denies body aches, Denies chills, Denies fatigue and Denies fever(s) Eyes Denies blurry vision ENT Denies ear discharge, Reports otalgia, Denies nasal discharge and Denies sore throat Card Denies chest pain and Denies dyspnea Resp Denies cough and Denies dyspnea Skin/Breast Denies rash Endo Denies fatigue Physical Exam Vital Signs: Last Vital Signs Temp 97.6 F 02/11/23 12:32 Pulse 85 02/11/23 12:32 BP 130/68 02/11/23 12:32 Pulse Ox 96 02/11/23 12:32 Oxygen Delivery Method Room Air 02/11/23 12:32 BMI result Body Mass Index 21.4 General: Non-toxic, NAD. Speaking full sentences. Skin: Warm dry throughout Eye: EOMI, PERRL HENT: Airway patent. Uvula midline. No pharyngeal erythema or edema. No MEDICAL OFFICER. Bilateral canals clear. L TM + erythema and slight bulge, no performation. R TM non-erythematous, non-bulging. No TM perforation or hemotympanum noted. Respiratory: No tachypnea Cardiac: RRR. No murmur MSK: Full ROM extremities. Neurology: A/O. No aphasia or facial droop. Gait without abnormality Psych: Good mood and affect Assessment & Plan Assessment & Plan (1) Otitis media: Code(s): H66.90 - Otitis media, unspecified, unspecified ear Qualifiers: Otitis media type: serous Chronicity: acute Laterality: left Recurrence: non-recurrent Qualified Code(s): H65.02 - Acute serous otitis media, left ear Plan: Patient seen and evaluated. + L OM on exam Amoxicillin F/U with PCP Patient gave verbal understanding and had no additional questions or concerns at time of discharge All questions answered Medications: New amoxicillin 875 mg PO BID 14 tabs 0RF H66.90 - Otitis media, unspecified, unspecified ear Coding Level of Care Code Est Pt Level 3 (95776) Diagnoses Non-recurrent acute serous otitis media of left ear H65.02 Otitis media type: serous Chronicity: acute Laterality: left Recurrence: non-recurrent
== END 2023-02-11 15:19 | disposition home or self-care (01) ==
PROVIDERS: PCP Internal Medicine; Visit Provider Physician Assistant
DX: H65.02 Acute serous otitis media, left ear (principal)
CPT/HCPCS: 99213

== ENCOUNTER 2023-04-12 08:08 | Outpatient (REF) | payer MEDICARE, SELFPAY ==
--- NOTE | ~2023-04-12 | CT_ITS ---
EXAMINATION: CT CHEST SCREENING CLINICAL INFORMATION: Former smoker, quit smoking x4 years, 50 pack-year history. COMPARISON: CT lung screening 04/12/2023. TECHNIQUE: Multidetector volumetric CT imaging of the chest is performed without contrast using low dose technique. Additional 2D coronal and sagittal reformatted images and axial 3D maximum intensity projection (MIP) images are generated on the CT workstation. This CT examination was performed using dose optimization techniques as appropriate, variously including the following: *Automated exposure control *Adjustment of mA and/or kV according to patient size (this includes techniques or standardized protocols for targeted exams where dose is matched to indication/reason for exam; i.e. extremities or head) *Use of iterative reconstruction technique DLP: 40 mGy-cm FINDINGS: LUNGS: The lungs are well expanded and clear of acute pneumonic process. 1 mm punctate calcification seen in the right lower lobe, stable. No noncalcified pulmonary nodules, mass or consolidation. MEDIASTINUM: Thyroid lobes are symmetric and normal. The central trachea and bronchi are widely patent. Heart size and the great vessels are normal caliber. No abnormal-sized mediastinal or hilar lymph nodes seen. CORONARY ARTERY CALCIFICATION: Trace left coronary artery calcification seen. PLEURA: There is no pleural effusion. No pleural mass or thickening. AXILLA: No lymphadenopathy. UPPER ABDOMEN: Visualized liver, spleen, pancreas and adrenal glands are unremarkable. OSSEOUS STRUCTURES: No aggressive lytic or sclerotic process seen. There are inferior endplate sclerotic changes at the T9 vertebra. CT/CT lung screening IMPRESSION: No pulmonary nodules, mass or lymphadenopathy. 2 mm calcified granuloma right lower lobe is stable. ASSESSMENT: Lung-RADS category 1: Negative. RECOMMENDATION: Low-dose annual CT chest.
== END 2023-04-12 08:09 | disposition home or self-care (01) ==
LOC: HO.CT 08:08
PROVIDERS: PCP Internal Medicine; Visit Provider Nurse Practitioner Family
DX: Z12.2 Encounter for screening for malignant neoplasm of respiratory organs (principal); Z87.891 Personal history of nicotine dependence
CPT/HCPCS: 71271

== ENCOUNTER 2023-05-21 07:06 | Outpatient (REF) | payer MEDICARE, SELFPAY ==
--- NOTE | ~2023-05-21 | US_ITS ---
EXAMINATION: US COMPLETE ABDOMEN WITH LIVER ELASTOGRAPHY CLINICAL INFORMATION: Hepatitis C. Liver fibrosis. COMPARISON: Previous exam March 2022. TECHNIQUE: Real-time imaging of the abdominal viscera. Noninvasive ultrasound liver fibrosis assessment is performed using [employer] El[employer] point quantification shear wave elastography (2D-SWE) with a C5-2 MHz transducer. Multiple elastography samples are obtained. FINDINGS: PANCREAS: Normal. ABDOMINAL AORTA: The proximal, middle, and distal aortic segments are normal in caliber. INFERIOR VENA CAVA: Visualized portions are normal. LIVER: Liver echotexture is increased. There are 2 cysts measuring 5 x 6 mm in the left lobe and 6 x 5 x 9 mm in the right lobe. No other focal liver lesion. No intrahepatic biliary duct dilatation. The liver is normal in contour and size. The right lobe measures 13 cm in length. The left lobe measures 7.5 cm in length. Portal flow is normal. Shear wave liver elastography median stiffness is 1.9 m/s (reference: normal median stiffness is 1.3 m/s or less). Previous 1.8 m/s. IQR/median stiffness to assess sampling precision is 0.01 (reference: good quality data set is IQR/median stiffness of 0.15 or less). GALLBLADDER: Not seen. COMMON BILE DUCT: Normal in caliber measuring 0.7 cm in diameter. RIGHT KIDNEY: Normal. No hydronephrosis. No renal calculi or focal parenchymal lesions. The kidney measures 9 cm in maximum dimension. LEFT KIDNEY: Normal. No hydronephrosis. No renal calculi or focal parenchymal lesions. The kidney measures 9 cm in maximum dimension. SPLEEN: Normal. The spleen measures 8 cm in maximum dimension. FREE FLUID: None. US/US abdomen comp w elastography IMPRESSION: 1. Echogenic morphologically normal liver. Small liver cysts. No other focal lesion. Gallbladder again not seen. 2. Liver elastography: Slightly elevated suggestive of compensated advanced chronic liver disease but need further test for confirmation. Adequate liver sampling. Liver elastography minimally increased from March 2022. REFERENCE: Society of Radiologists in Ultrasound Liver Stiffness Thresholds (2019): LIVER STIFFNESS THRESHOLDS: *Liver Stiffness equal or less than 1.3 m/s: High probability of being normal. *Liver Stiffness less than 1.7 m/s: In the absence of other known clinical signs, rules out compensated advanced chronic liver disease. *Liver Stiffness 1.7-2.1 m/s: Suggestive of compensated advanced chronic liver disease but need further test for confirmation. *Liver Stiffness over 2.1 m/s: Rules in compensated advanced chronic liver disease. *Liver Stiffness over 2.4 m/s: Suggestive of clinically significant portal hypertension. QUALITY OF DATA SET: *IQR/Median value equal or less than 0.15 implies a quality data set. *IQR/Median value over 0.15 implies a poor quality data set. SIGNIFICANT CHANGE FROM PRIOR EXAM: Significant change if liver stiffness measurement is 10% or greater from prior exam. OTHER CONSIDERATIONS: The stage of liver fibrosis may be overestimated in the setting of acute hepatitis, liver inflammation, elevated liver function tests, hepatic vascular congestion, obstructive cholestasis, non-fasting state, and infiltrative diseases such as amyloidosis and lymphoma. In some patients with NAFLD, the liver stiffness thresholds for compensated advanced chronic liver disease may be lower. In causes other than viral hepatitis and NAFLD, liver stiffness thresholds are not well established.
[2023-05-21 10:39] LABS: MANUAL DIFF FLAG NO
[2023-05-21 10:47] LABS: Basophils Absolute Auto 0.1 X10*3/uL (0.0-0.2); Basophils Percent Auto 0.9 % (0-2); Eosinophils Absolute Auto 0.2 X10*3/uL (0.0-0.4); Eosinophils Percent Auto 2.3 % (0-4); Hematocrit 40.2 % (37.0-47.0); Hemoglobin 12.8 g/dl (12.0-16.0); Imm Gran Abs Auto 0.04 X10*3/uL (0.00-0.03); Imm Gran Pct Auto 0.5 % (0.0-0.4); Lymphocytes Absolute Auto 2.8 X10*3/uL (1.2-4.9); Lymphocytes Percent Auto 32.3 % (20-40); Mean Corpuscular HGB Conc 31.8 g/dl (31.0-35.0); Mean Corpuscular Hemoglobin 30.1 pg (27.0-33.0); Mean Corpuscular Volume 94.6 fL (80.0-98.0); Mean Platelet Volume 8.5 fL (9.4-12.3); Monocytes Absolute Auto 0.8 X10*3/uL (0.1-1.2); Monocytes Percent Auto 8.7 % (2-11); Neutrophils Absolute Auto 4.8 x10*3/uL (2.0-8.3); Neutrophils Percent Auto 55.3 % (45-73); Platelet Count 287 X10*3/uL (160-400); Red Blood Count 4.25 X10*6/uL (4.20-5.50); Red Cell Distribution Width 13.4 % (11.0-16.0); White Blood Count 8.7 X10*3/uL (4.8-10.8)
[2023-05-21 10:53] LABS: INTERNATIONAL NORM RATIO 0.9 (0.9-1.1); Prothrombin Time 11.5 SEC (11.1-13.3)
[2023-05-21 11:18] LABS: Alanine Aminotransferase 20 U/L (0-31); Albumin Level 3.9 g/dL (3.5-5.0); Alkaline Phosphatase 66 U/L (39-117); Aspartate Amino Transferase 22 U/L (5-31); Bilirubin Direct 0.1 mg/dL (0.0-0.5); Bilirubin Total 0.3 mg/dL (0.0-1.0)
[2023-05-27 20:53] LABS: Alpha Fetoprotein 3.2 ng/mL
[2023-05-28 18:03] LABS: FIB-ALT 15 U/L (6-29); FIB-Alpha-2-Macroglobulin 293 mg/dL (106-279); FIB-Apolipoprotein A1 148 mg/dL (101-198); FIB-GGT 12 U/L (3-65); FIB-Haptoglobin 172 mg/dL (43-212); FIB-Total Bilirubin 0.3 mg/dL (0.2-1.2); Liver Fibrosis Score 0.23; Liver Fibrosis Stage F0-F1; Nec Inflam Act Grade A0; Nec Inflam Act Score 0.05
== END 2023-05-21 07:07 | disposition home or self-care (01) ==
LOC: HO.US 07:06
PROVIDERS: PCP Internal Medicine; Referring Provider Internal Medicine; Visit Provider Internal Medicine
DX: K74.00 Hepatic fibrosis, unspecified (principal); Z86.19 Personal history of other infectious and parasitic diseases
CPT/HCPCS: 36415; 76700; 76981; 80076; 81596; 82105; 85025; 85610

== ENCOUNTER 2023-08-25 12:42 | Outpatient (AMB) | payer MEDICARE, SELFPAY ==
--- NOTE | 2023-08-25 12:52 | MHC.PC.OV ---
Vital Signs 08/25/23 13:11 Height 5 ft 2 in Weight 119 lb BMI 21.8 BP 90/60 Blood Pressure Location Lt brachial Position Sitting Pulse 78 Pulse Source Pulse Oximeter Pulse Oximetry (%) 97 Oxygen Delivery Method Room Air Intake Visit Reasons: Follow Up Intake Note: Pt is here today for her f/u COPD Allergies No Known Allergies Allergy (Mild, Verified 08/29/23 23:40) N/A Medication List - Last Reconciled 08/25/23 by Carolina Murrell MD albuterol sulfate 90 mcg/actuation 1 inh inhalation QID PRN alendronate 70 mg PO QWEEK cholecalciferol (vitamin D3) 25 mcg PO DAILY fluticasone propionate 50 mcg/actuation 1 spray intranasal DAILY tiotropium bromide 2.5 mcg/actuation (Spiriva Respimat) 2 puffs inhalation DAILY Tobacco use date assessed: 08/25/23 Fall risk assessment: No Falls in past year Last assessed Fall Risk: 08/25/23 Dental Screening Dental Screen Date: 08/25/23 Did you have a dental visit in the last 12 months?: No Did you have a dental problem in the last 6 months where you did not have access to dental care?: No Was dental information given to patient?: Patient has dentist HPI Follow Up HPI Details 68-year-old lady with COPD, and osteoporosis, here today for follow-up. She has been feeling well, compliant with taking her medications. Recently had her yearly low-dose CT scan of lung 04/06/2023 which showed no nodules, benign findings. Due for recheck again in a year. Has been on alendronate now for the last 5 years and is due for a drug holiday . Last bone density scan done a year ago showed some improvement in her bone density in her left femoral neck with a T-score coming down from -2.8 in 2020 to a T-score of -2.6. PFSH Medical History Vasomotor symptoms due to menopause Encounter for monitoring alendronate therapy COVID-19 vaccine series completed Hepatitis C COPD (chronic obstructive pulmonary disease) Tubular adenoma of colon Postmenopause Breast cancer screening by mammogram Osteoporosis Surgical History Hx of blepharoplasty Hx of tubal ligation Hx of dilation and curettage H/O colonoscopy Social History Housing: House Are you a primary care associate to a significant other at home: No Do you presently have visiting nurse or other home services: No Alcohol intake: former Patient Tobacco Use Status: Former Tobacco user Tobacco use type: Cigarette e-Cigarette/Vaping Use: Currently Using Second Hand Smoke Exposure: Yes service: No Current occupational status: retired Cognitive needs: No Hearing needs: Yes Vision needs: No Questionnaire Thrive Questionnaire Date Thrive assessed: 06/02/22 BLOSSOM-7 AMB Questionnaire BLOSSOM-7 Date BLOSSOM - 7 assessed: 06/02/22 Source: Developed by Drs. Severo Leos, Shruti Yeboah, Paul Reaves and colleagues, with an educational berry from [employer] (formerly [employer]). Review of Systems Const Denies body aches, Denies chills, Denies fatigue and Denies fever(s) Eyes Denies blurry vision ENT Reports no additional complaints Card Denies chest pain and Denies dyspnea Resp Denies cough and Denies dyspnea GI Reports no additional complaints Musc Reports no additional complaints Skin/Breast Denies rash Neuro Reports no additional complaints Endo Denies fatigue Physical exam (Primary Care) Vital Signs: Last Vital Signs Pulse 78 08/25/23 13:11 BP 90/60 08/25/23 13:11 Pulse Ox 97 08/25/23 13:11 Oxygen Delivery Method Room Air 08/25/23 13:11 BMI result Body Mass Index 21.8 Tobacco/Smoking Status: Tobacco use Status Tobacco use date assessed 08/25/23 08/25/23 12:53 Patient Tobacco Use Status Former Tobacco user 08/25/23 12:53 Tobacco use type Cigarette 08/25/23 12:53 e-Cigarette/Vaping Use Currently Using 08/25/23 12:53 Thrive Assessment: Date of Thrive Assessment Date Thrive assessed 06/02/22 08/25/23 12:53 Const General: no acute distress and alert Nutritional Appearance: average body habitus Orientation/consciousness: patient oriented x3 HENMT Head: Yes normocephalic General nose exam: Normal external nose present Face and sinus: Yes face symmetric Mouth: oropharynx normal and moist mucous membranes Eyes General: appearance normal, both eyes and all related structures Neck Neck: Yes full ROM, Yes no lymphadenopathy and Yes supple Thyroid: Thyroid normal Resp Effort & Inspection: normal respiratory effort and able to speak in complete sentences Auscultation: clear to auscultation bilaterally Cardio Other: S1-S2 present regular rate and rhythm GI Other: Normal bowel sounds, soft, nontender, with no mass palpated Back/Spine/Pelvis Back: No back tenderness Neuro General: patient oriented x3, gait normal, moves all extremities, Normal light touch and pain sensation, no focal motor deficits and CN's II-XI intact bilaterally Extrem General: Yes full ROM, Yes no joint enlargement, Yes no pedal edema, Yes no calf tenderness and Yes normal gait Assessment and Plan Assessment & Plan (1) COPD (chronic obstructive pulmonary disease): Code(s): J44.9 - Chronic obstructive pulmonary disease, unspecified Plan: Continue with Spiriva Respimat and as needed albuterol inhaler (2) Osteoporosis: Code(s): M81.0 - Age-related osteoporosis without current pathological fracture Qualifiers: Osteoporosis type: age-related Presence of current pathological fracture: without current pathological fracture Qualified Code(s): M81.0 - Age-related osteoporosis without current pathological fracture Plan: Continue with regular weight-bearing exercise, take adequate calcium from dietary sources and continue with cholecalciferol supplements at least 2000 units daily. Will hold alendronate for year and recheck bone density scan again next year Medications: Refilled albuterol sulfate 90 mcg/actuation 1 inh inhalation QID PRN 8.5 grams 3RF shortness of breath or wheezing Discontinued alendronate Discontinued Reason: Doctor's Order 70 mg PO QWEEK 4 tabs 3RF Coding Level of Care Code Est Pt Level 4 (69499) Complex EM visit Add On G2211 Diagnoses COPD (chronic obstructive pulmonary disease) J44.9 Age-related osteoporosis without current pathological fracture M81.0 Osteoporosis type: age-related Presence of current pathological fracture: without current pathological fracture
[2023-08-25 13:11] VITALS: BP 90/60; PULSE 78; O2SAT 97; BMI 21.8
== END 2023-08-25 17:16 | disposition home or self-care (01) ==
PROVIDERS: PCP Internal Medicine; Visit Provider Internal Medicine
DX: J44.9 Chronic obstructive pulmonary disease, unspecified (principal); M81.0 Age-related osteoporosis without current pathological fracture
CPT/HCPCS: 99214; G2211

== ENCOUNTER 2023-09-01 07:39 | Outpatient (REF) | payer MEDICARE, SELFPAY | END 2023-09-01 07:40 | disposition home or self-care (01) | LOC: HO.MAMMO 07:39 | PROVIDERS: PCP Internal Medicine; Visit Provider Internal Medicine | DX: Z12.31 Encounter for screening mammogram for malignant neoplasm of breast (principal) | CPT/HCPCS: 77063; 77067 ==

== ENCOUNTER → 2023-09-01 08:00 | Outpatient (BNV) | payer MEDICARE, SELFPAY | PROVIDERS: PCP Internal Medicine; Visit Provider Radiology Diagnostic Radiology | DX: Z12.31 Encounter for screening mammogram for malignant neoplasm of breast (principal) | CPT/HCPCS: 77063; 77067 ==

== ENCOUNTER 2023-11-15 09:35 | Outpatient (AMB) | payer MEDICARE, SELFPAY ==
[2023-11-15 10:07] VITALS: BP 118/60; PULSE 82; O2SAT 97; BMI 21.4
--- NOTE | 2023-11-15 10:07 | MHC.PC.OV ---
Vital Signs 11/15/23 10:07 Height 5 ft 2 in Weight 117 lb BMI 21.4 BP 118/60 Blood Pressure Location Lt brachial Position Sitting Pulse 82 Pulse Source Pulse Oximeter Pulse Oximetry (%) 97 Oxygen Delivery Method Room Air Intake Visit Reasons: leg pain req ref for pain mgmt Intake Note: Pt is here today to discuss referral for pain mgmt of Lt leg pain Allergies No Known Allergies Allergy (Mild, Verified 11/15/23 10:36) N/A Medication List - Last Reconciled 11/15/23 by Carolina Murrell MD albuterol sulfate 90 mcg/actuation 1 inh inhalation QID PRN cholecalciferol (vitamin D3) 25 mcg PO DAILY fluticasone propionate 50 mcg/actuation 1 spray intranasal DAILY tiotropium bromide 2.5 mcg/actuation (Spiriva Respimat) 2 puffs inhalation DAILY Tobacco use date assessed: 11/15/23 Fall risk assessment: 2 + Falls in past year Last assessed Fall Risk: 11/15/23 Dental Screening Dental Screen Date: 11/15/23 Did you have a dental visit in the last 12 months?: No Did you have a dental problem in the last 6 months where you did not have access to dental care?: No Was dental information given to patient?: Patient declined HPI leg pain req ref for pain mgmt HPI Details 68-year-old lady here today complaining of pain , mainly in her lower back radiating down left leg, and also complains of a painful swelling on lateral aspect of left popliteal area, worse with ambulation. Has been present now for the last several weeks and getting worse. No history of trauma. Minimal relief with NSAIDs PFSH Medical History (Updated 11/15/23 @ 10:47 by Carolina Murrell MD) Lumbar back pain with radiculopathy affecting left lower extremity Vasomotor symptoms due to menopause Encounter for monitoring alendronate therapy COVID-19 vaccine series completed Hepatitis C COPD (chronic obstructive pulmonary disease) Tubular adenoma of colon Postmenopause Breast cancer screening by mammogram Osteoporosis Surgical History Hx of blepharoplasty Hx of tubal ligation Hx of dilation and curettage H/O colonoscopy Social History Housing: House Are you a primary care director rn to a significant other at home: No Do you presently have visiting nurse or other home services: No Alcohol intake: former Patient Tobacco Use Status: Former Tobacco user Tobacco use type: Cigarette e-Cigarette/Vaping Use: Currently Using Second Hand Smoke Exposure: Yes service: No Current occupational status: retired Cognitive needs: No Hearing needs: Yes Vision needs: No Questionnaire PHQ-9 Over the last 2 weeks, how often have you been bothered by any of the following problems? 1. Little interest or pleasure in doing things: several days 2. Feeling down, depressed, or hopeless: not at all 3. Trouble falling or staying asleep, or sleeping too much: not at all 4. Feeling tired or having little energy: not at all 5. Poor appetite or overeating: not at all 6. Feeling bad about yourself - or that you are a failure or have let yourself or your family down: not at all 7. Trouble concentrating on things, such as reading the newspaper or watching television: not at all 8. Moving or speaking so slowly that other people could have noticed. Or the opposite - being so fidgety or restless that you have been moving around a lot more than usual: not at all 9. Thoughts that you would be better off or of hurting yourself in some way: not at all Total score: 1 Depression Screening Interpretation: Negative Depression Screening Done: Yes 59184 - PHQ-9 Billing: Yes Source: Developed by Drs. Severo Leos, Shruti Yeboah, Paul Reaves and colleagues, with an educational berry from [employer] ([employer]). Thrive Questionnaire Date Thrive assessed: 11/15/23 I am a: Patient What is your living situation today?: I have a steady place to live Within the past 12 months, did the food you bought not last and you didn't have the money to get more?: Never true Within the past 12 months, did you worry whether your food would run out before you got money to buy more?: Never true Do you have trouble paying for medicines?: No Do you have trouble getting transportation to medical appointments?: No Do you have trouble paying your heating and electricity bill?: No Do you have trouble taking care of your child, family member or friend?: No Do you have trouble with day-to-day activities such as bathing, preparing meals, shopping, managing finances, etc.?: No Are you interested in more education?: No Please select the resources that you would like help with: None Currently or been in a relationship where the following occur: No concerns reported THRIVE Score: 0 AUDIT C Alcohol Use Questionnaire (AUDIT-C) 1. How often do you have a drink containing alcohol?: Never Total Score: 0 BLOSSOM-7 AMB Questionnaire BLOSSOM-7 Date BLOSSOM - 7 assessed: 11/15/23 Feeling nervous, anxious, or on edge: 0 = Not at all Not being able to stop or control worryin = Not at all Worrying too much about different things: 0 = Not at all Trouble relaxin = Not at all Being so restless that it is hard to sit still: 0 = Not at all Becoming easily annoyed or irritable: 0 = Not at all Feeling afraid as if something awful might happen: 0 = Not at all Total BLOSSOM-7 score (0-4 normal; 5-9 mild; 10-14 moderate; 15-21 severe): 0 Source: Developed by Drs. Severo Leos, Shruti Yeboah, Paul Reaves and colleagues, with an educational berry from [employer] ([employer]). BLOSSOM-7 Assessment Billing BLOSSOM-7 Assessment Tool: BLOSSOM-7 Assessment 78163 Review of Systems Const Denies body aches, Denies chills, Denies fatigue and Denies fever(s) Eyes Denies change in vision ENT Reports no additional complaints Card Denies chest pain and Denies dyspnea Resp Denies cough and Denies dyspnea GI Reports no additional complaints Musc Reports as per HPI Skin/Breast Denies rash Neuro Reports no additional complaints Endo Denies fatigue Tony/Lymph Reports no additional complaints Physical exam (Primary Care) Vital Signs: Last Vital Signs Pulse 82 11/15/23 10:07 BP 118/60 11/15/23 10:07 Pulse Ox 97 11/15/23 10:07 Oxygen Delivery Method Room Air 11/15/23 10:07 BMI result Body Mass Index 21.4 Tobacco/Smoking Status: Tobacco use Status Tobacco use date assessed 11/15/23 11/15/23 10:08 Patient Tobacco Use Status Former Tobacco user 11/15/23 10:08 Tobacco use type Cigarette 11/15/23 10:08 e-Cigarette/Vaping Use Currently Using 11/15/23 10:08 PHQ-9: PHQ-9 Score PHQ-9: Total score 1 11/29/23 04:24 Depression Screening Interpretation: Negative Thrive Assessment: Date of Thrive Assessment Date Thrive assessed 11/15/23 11/15/23 10:08 Currently or been in a relationship where the following occur: No concerns reported Const General: no acute distress and alert Nutritional Appearance: average body habitus Orientation/consciousness: patient oriented x3 HENMT Head: Yes normocephalic General nose exam: Normal external nose present Face and sinus: Yes face symmetric Mouth: oropharynx normal and moist mucous membranes Eyes General: appearance normal, both eyes and all related structures Neck Neck: Yes full ROM, Yes no lymphadenopathy and Yes supple Thyroid: Thyroid normal Resp Effort & Inspection: normal respiratory effort and able to speak in complete sentences Auscultation: clear to auscultation bilaterally Cardio Other: S1-S2 present regular rate and rhythm GI Other: Normal bowel sounds, soft, nontender, with no mass palpated Back/Spine/Pelvis Back: No back tenderness (Left sacroiliac area, straight leg raising negative bilateral) Skin General skin exam: no rashes or lesions noted Neuro General: patient oriented x3, gait normal, moves all extremities, Normal light touch and pain sensation, no focal motor deficits and CN's II-XI intact bilaterally Extrem Other: Slightly tender swelling on lateral aspect of left popliteal fossa General: Yes full ROM, Yes no pedal edema, Yes no calf tenderness and Yes normal gait Coding Level of Care Code Est Pt Level 4 (70571) Diagnoses Swelling of left knee joint M25.462 Lumbar back pain with radiculopathy affecting left lower extremity M54.16 Additional Codes BLOSSOM-7 Assessment Billing - BLOSSOM-7 Assessment Tool: BLOSSOM-7 Assessment [id number] ([id number])
== END 2023-11-15 11:06 | disposition home or self-care (01) ==
PROVIDERS: PCP Internal Medicine; Visit Provider Internal Medicine
DX: M25.462 Effusion, left knee (principal); M54.16 Radiculopathy, lumbar region

== ENCOUNTER → 2023-11-15 09:35 | Outpatient (BNVA) | payer MEDICARE, SELFPAY | PROVIDERS: PCP Internal Medicine; Visit Provider Internal Medicine ==

== ENCOUNTER 2023-11-15 10:54 | Outpatient (REF) | payer MEDICARE, SELFPAY ==
--- NOTE | ~2023-11-15 | XR_ITS ---
EXAMINATION: XR HIP, LEFT XR LUMBAR SPINE CLINICAL INFORMATION: Pain, radiculopathy in lumbar spine. COMPARISON: None available. TECHNIQUE: 5 views of the lumbar spine, AP view of the pelvis and two views of the left hip. FINDINGS: LUMBAR SPINE: Diffuse demineralization. Facet arthritis in the lower lumbar spine. There is a pseudoarthrosis between the left L5 transverse process and the sacrum. Multilevel lumbar spondylosis with loss of disc space height severe at L5-S1. Grade 1 anterolisthesis of L4 on L5 with [id number] loss of disc space height. Atherosclerotic aortoiliac calcifications. Mild superior endplate compression deformity of the L1 vertebral body of indeterminate age. AP PELVIS AND LEFT HIP: Diffuse demineralization. Mild degenerative changes in the left hip with joint space narrowing and hypertrophic change. Mild degenerative changes on single AP view of the right hip. Bilateral sacroiliac joints demonstrate moderate degenerative changes. XR/XR hip LT w PEL1V IMPRESSION: 1. Multilevel lumbar spondylosis with loss of disc space height severe at L5-S1. 2. Mild superior endplate compression deformity of the L1 vertebral body of indeterminate age. 3. Mild degenerative changes in the left hip. 4. Moderate degenerative changes in the bilateral sacroiliac joints. 5. Diffuse demineralization. 6. There is a pseudoarthrosis between the left L5 transverse process and the sacrum. Electronically signed by: Evette Dalal MD 12/13/2023 06:55 AM EDT
--- NOTE | ~2023-11-15 | XR_ITS ---
EXAMINATION: XR HIP, LEFT XR LUMBAR SPINE CLINICAL INFORMATION: Pain, radiculopathy in lumbar spine. COMPARISON: None available. TECHNIQUE: 5 views of the lumbar spine, AP view of the pelvis and two views of the left hip. FINDINGS: LUMBAR SPINE: Diffuse demineralization. Facet arthritis in the lower lumbar spine. There is a pseudoarthrosis between the left L5 transverse process and the sacrum. Multilevel lumbar spondylosis with loss of disc space height severe at L5-S1. Grade 1 anterolisthesis of L4 on L5 with [id number] loss of disc space height. Atherosclerotic aortoiliac calcifications. Mild superior endplate compression deformity of the L1 vertebral body of indeterminate age. AP PELVIS AND LEFT HIP: Diffuse demineralization. Mild degenerative changes in the left hip with joint space narrowing and hypertrophic change. Mild degenerative changes on single AP view of the right hip. Bilateral sacroiliac joints demonstrate moderate degenerative changes. XR/XR lumbar spine 4V min IMPRESSION: 1. Multilevel lumbar spondylosis with loss of disc space height severe at L5-S1. 2. Mild superior endplate compression deformity of the L1 vertebral body of indeterminate age. 3. Mild degenerative changes in the left hip. 4. Moderate degenerative changes in the bilateral sacroiliac joints. 5. Diffuse demineralization. 6. There is a pseudoarthrosis between the left L5 transverse process and the sacrum. Electronically signed by: Evette Dalal MD 12/13/2023 06:55 AM EDT
== END 2023-11-15 10:55 | disposition home or self-care (01) ==
LOC: HO.HMGCX 10:54
PROVIDERS: PCP Internal Medicine; Visit Provider Internal Medicine
DX: M54.16 Radiculopathy, lumbar region (principal); M25.552 Pain in left hip; M25.462 Effusion, left knee
CPT/HCPCS: 72110; 73502; 96127; 99212

== ENCOUNTER 2023-11-26 10:26 | Outpatient (REF) | payer MEDICARE, SELFPAY ==
--- NOTE | ~2023-11-26 | US_ITS ---
EXAMINATION: ULTRASOUND LEFT KNEE AND POPLITEAL FOSSA CLINICAL INFORMATION: Left knee effusion with painful swelling on lateral aspect of the popliteal area with question of Richards's cyst. COMPARISON: None available. TECHNIQUE: High frequency linear ultrasound transducer was used to examine the area of clinical concern. FINDINGS: No fluid collection is seen. No abnormal masses are identified. The visualized popliteal vein and artery appear normal. US/US extremity nonvascular schwartz IMPRESSION: No abnormality is seen. Electronically signed by: Solomon Stanton MD 12/01/2023 09:31 AM EDT
== END 2023-11-26 10:27 | disposition home or self-care (01) ==
LOC: HO.HMGCX 10:26
PROVIDERS: PCP Internal Medicine; Visit Provider Internal Medicine
DX: M25.462 Effusion, left knee (principal); R60.0 Localized edema
CPT/HCPCS: 76882

== ENCOUNTER 2023-12-30 08:37 | Outpatient (AMB) | payer MEDICARE, SELFPAY ==
[2023-12-30 09:04] VITALS: BP 120/68; PULSE 101; O2SAT 95; BMI 21.0
--- NOTE | 2023-12-30 09:04 | A.OFFVIS_ITS ---
Vital Signs 12/30/23 09:04 Height 5 ft 2 in Weight 115 lb BMI 21.0 BP 120/68 Blood Pressure Location Rt brachial Position Sitting Pulse 101 H Pulse Source Pulse Oximeter Pulse Oximetry (%) 95 Oxygen Delivery Method Room Air Intake Visit Reasons: Radiculopathy, lumbar region Allergies No Known Allergies Allergy (Mild, Verified 12/30/23 09:05) N/A Medication List - Last Reconciled 12/30/23 by Guillermina Oseguera albuterol sulfate 90 mcg/actuation 1 inh inhalation QID PRN cholecalciferol (vitamin D3) 25 mcg PO DAILY fluticasone propionate 50 mcg/actuation 1 spray intranasal DAILY tiotropium bromide 2.5 mcg/actuation (Spiriva Respimat) 2 puffs inhalation DAILY HPI Comments Details: Anni presents to the office today for evaluation and management of her left lower back pain Endorses several years of left lower back pain with radiation down the left leg to the ankle. Denies inciting injury, fall, trauma. pain today is rated as 2/10, intermittent and worse after activity Taking Naproxen with short term improvement in the pain Attending PT but so far it has not provided any relief Denies history of back surgery, chirpractor, acupuncture, massage Denies red flag symptoms including new loss of bowel, bladder or saddle anesthesia Denies numbness or weakness of the left leg recent Xray reviewed, results as per below Pain is worse with activity and walking. states feels like her leg muscles are tightening up and spasming when she walks longer distances In terms of muscle damage condition is described as sharp, shooting, stabbing, aching, spasms Pain is negatively impacting patients enjoyment of life, general activity, recreational activities, sleep, walking Denies implantable devices, pacemaker, defibrillator Denies current use of anticoagulants PFSH Medical History SI (sacroiliac) joint dysfunction Compression deformity of vertebra Lumbar back pain with radiculopathy affecting left lower extremity Vasomotor symptoms due to menopause Encounter for monitoring alendronate therapy COVID-19 vaccine series completed Hepatitis C COPD (chronic obstructive pulmonary disease) Tubular adenoma of colon Postmenopause Breast cancer screening by mammogram Osteoporosis Surgical History Hx of blepharoplasty Hx of tubal ligation Hx of dilation and curettage H/O colonoscopy Social History Housing: House Are you a primary healthcare management consultant to a significant other at home: No Do you presently have visiting nurse or other home services: No Alcohol intake: former Patient Tobacco Use Status: Former Tobacco user Tobacco use type: Cigarette e-Cigarette/Vaping Use: Currently Using Second Hand Smoke Exposure: Yes service: No Current occupational status: retired Cognitive needs: No Hearing needs: Yes Vision needs: No Review of Systems Const All systems reviewed & are unremarkable except as noted in HPI and below Physical Exam Vital Signs: Last Vital Signs Pulse 101 H 12/30/23 09:04 BP 120/68 12/30/23 09:04 Pulse Ox 95 12/30/23 09:04 Oxygen Delivery Method Room Air 12/30/23 09:04 BMI result Body Mass Index 21.0 General: awake, alert, oriented. Answers questions appropriately. Fully engaged in examination. Skin: warm, dry, intact HEENT: Normocephalic. Hearing intact. Cardiac: External chest normal in appearance. Respiratory: No cough, audible wheezing or stridor. Abdomen: without gross distension. MS: No obvious swelling or deformities. Able to stand on bilateral tiptoes and bilateral heels.? Able to transition from sit to stand unassisted. Ambulates with bilaterally normal heel strike and toe off Full lumbar ROM SLR positive left neg foot drop, neg clonus BLE strength 5/5 tenderness to palpation over midline lumbar vertebrae and lumbar paraspinal muscles Neurological: Oriented to person, place, time and situation. Thought process intact. No gait abnormalities appreciated. Psychiatric: Appropriate mood and affect. Good judgment and insight. Results Reviewed Results Reviewed: 11/15/2023 IMPRESSION: 1. Multilevel lumbar spondylosis with loss of disc space height severe at L5-S1. 2. Mild superior endplate compression deformity of the L1 vertebral body of indeterminate age. 3. Mild degenerative changes in the left hip. 4. Moderate degenerative changes in the bilateral sacroiliac joints. 5. Diffuse demineralization. 6. There is a pseudoarthrosis between the left L5 transverse process and the sacrum. Assessment & Plan Assessment & Plan (1) Lumbar back pain with radiculopathy affecting left lower extremity: Code(s): M54.16 - Radiculopathy, lumbar region Category: Medical Plan MRI ordered for evaluation, lower back pain radiating down the left leg. failed >6 weeks conservative therapy including PT, NSAIDs, HEP Methocarbamol 500mg po BID as needed. patient advised on cautions for use c/w naproxen as needed c/w PT and HEP as planned All questions and concerns were answered, patient agrees with the plan. follow up after MRI, sooner if needed Orders: Orders MR lumbar spine wo con Today M54.16 - Radiculopathy, lumbar region Medications: New methocarbamol No driving while taking this medication. 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
== END 2023-12-30 09:28 | disposition home or self-care (01) ==
PROVIDERS: PCP Internal Medicine; Visit Provider Registered Nurse Emergency
DX: M54.16 Radiculopathy, lumbar region (principal)
CPT/HCPCS: 99204; G2211

== ENCOUNTER → 2023-12-30 08:37 | Outpatient (BNVA) | payer MEDICARE, SELFPAY | PROVIDERS: PCP Internal Medicine; Visit Provider Registered Nurse Emergency | DX: M54.16 Radiculopathy, lumbar region (principal) | CPT/HCPCS: 99202 ==

== ENCOUNTER 2024-01-17 08:00 | Outpatient (RCR) | payer MEDICARE, SELFPAY ==
--- NOTE | 2023-12-17 09:58 | MHC.PT.EP ---
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 Examination shows decreased B LE strength (L more limited than R), decreased L hip extension, normal reflexes, poor stability throughout gait cycle, and noted severe muscle spasms with functional mobility such as bridging. S/s consistent with Lumbar dysfunction and recommend PT 1x/week for 5 weeks to address impairments, implement HEP, and optimize functional mobility. Frequency and Duration: The patient will be seen 1x/week for 5 weeks Short Term Goals: 3 weeks I with HEP Pt will be able to perform 10 bridges without muscle cramping to optimize moving in bed Alf Goals: 5 weeks I with HEP and self management of sx Pt will be able to walk > 20 minutes with pain < 3/10 Pt will improve Oswestry to 2/45 (IR 9/45) Treatment Plan: Modalities to reduce pain, spasms and effusion. Manual therapy to restore motion and function. Therapeutic exercise to improve strength and flexibility. Neuromuscular re-education for posture and balance. Therapeutic activities to return to functional activities of daily living. Electronically signed by: Laurel Villalpando PT Please sign and return to therapist. Thank you for your referral.
--- NOTE | 2024-01-17 08:49 | MHC.PT.DC ---
[facility] [place] Office [place] [facility] [place] [facility] [address] Kyler Nair [address] [phone] F: [phone] F: [phone] F: [phone] F: [phone] Physical Therapy Discharge Report Diagnosis: lumbar radiculopathy Date of Surgery: Date of Evaluation: 12/17/23 Date of Discharge: 01/17/24 Treatments to Date: 6 Cancellations to Date: 0 No Shows to Date: 0 Discharge Status: Improved Function Independent with HEP Discharge Summary: Reviewed HEP and pt with good technique and pacing. Reviewed progressing to blue band once green theraband is easy at home. She has made improvement with more fluid gait pattern, able to walk 20 minutes and I with HEP. Oswestry 10/50 (IR 9/45) showing no significant change. She will be having lumbar MRI and will f/u with MD after test. No further questions and d/c at this time Electronically signed by: Laurel Villalpando PT Please sign and return to therapist. Thank you for your referral.
== END 2024-01-17 08:49 | disposition home or self-care (01) ==
LOC: HO.PTCHIC 08:00
PROVIDERS: PCP Internal Medicine; Visit Provider Internal Medicine
DX: M54.16 Radiculopathy, lumbar region (principal)
CPT/HCPCS: 97110; 97161; 97530

== ENCOUNTER 2024-02-06 08:10 | Outpatient (REF) | payer MEDICARE, SELFPAY | END 2024-02-06 08:11 | disposition home or self-care (01) | LOC: HO.MRI 08:10 | PROVIDERS: PCP Internal Medicine; Visit Provider Registered Nurse Emergency | DX: M54.16 Radiculopathy, lumbar region (principal) | CPT/HCPCS: 72148 ==

== ENCOUNTER 2024-03-09 09:00 | Outpatient (AMB) | payer MEDICARE, SELFPAY ==
[2024-03-09 09:06] VITALS: BP 132/67; BMI 21.4
--- NOTE | 2024-03-09 09:06 | A.OFFVIS_ITS ---
Vital Signs 03/09/24 09:06 Height 5 ft 2 in Weight 117 lb BMI 21.4 BP 132/67 Blood Pressure Location Lt brachial Position Sitting Intake Visit Reasons: MRI Results Allergies No Known Allergies Allergy (Mild, Verified 12/30/23 09:05) N/A HPI Comments Details: Patient presents back to the office today for follow-up, review recent MRI MRI reviewed, results as per below Pain today is rated as a 5/10, constant and worse with activity Endorses left lower back pain with radiation down the left leg to the foot. She also endorses bilateral lower extremity fatigue with walking that improves with rest and with slight forward flexion Denies red flag symptoms including new loss of bowel, bladder or saddle anesthesia. Denies weakness of the lower extremity. Intake note: Anni presents to the office today for evaluation and management of her left lower back pain Endorses several years of left lower back pain with radiation down the left leg to the ankle. Denies inciting injury, fall, trauma. pain today is rated as 2/10, intermittent and worse after activity Taking Naproxen with short term improvement in the pain Attending PT but so far it has not provided any relief Denies history of back surgery, chirpractor, acupuncture, massage Denies red flag symptoms including new loss of bowel, bladder or saddle anesthesia Denies numbness or weakness of the left leg recent Xray reviewed, results as per below Pain is worse with activity and walking. states feels like her leg muscles are tightening up and spasming when she walks longer distances In terms of muscle damage condition is described as sharp, shooting, stabbing, a chary, spasms Pain is negatively impacting patients enjoyment of life, general activity, recreational activities, sleep, walking Denies implantable devices, pacemaker, defibrillator Denies current use of anticoagulants [facility] Medical History (Updated 03/09/24 @ 09:40 by Yue Ramirez APRN, FLIGHT SUPERINTENDENT) Personal history of nicotine dependence SI (sacroiliac) joint dysfunction Compression deformity of vertebra Lumbar back pain with radiculopathy affecting left lower extremity Vasomotor symptoms due to menopause Encounter for monitoring alendronate therapy COVID-19 vaccine series completed Hepatitis C COPD (chronic obstructive pulmonary disease) Tubular adenoma of colon Postmenopause Breast cancer screening by mammogram Osteoporosis Surgical History Hx of blepharoplasty Hx of tubal ligation Hx of dilation and curettage H/O colonoscopy Social History Housing: House Are you a primary home care and home health aides teacher to a significant other at home: No Do you presently have visiting nurse or other home services: No Alcohol intake: former Patient Tobacco Use Status: Former Tobacco user Tobacco use type: Cigarette e-Cigarette/Vaping Use: Currently Using Second Hand Smoke Exposure: Yes service: No Current occupational status: retired Cognitive needs: No Hearing needs: Yes Vision needs: No Review of Systems Const All systems reviewed & are unremarkable except as noted in HPI and below Physical Exam Vital Signs: Last Vital Signs BP 132/67 03/09/24 09:06 BMI result Body Mass Index 21.4 General: awake, alert, oriented. Answers questions appropriately. Fully engaged in examination. Skin: warm, dry, intact HEENT: Normocephalic. Hearing intact. Cardiac: External chest normal in appearance. Respiratory: No cough, audible wheezing or stridor. Abdomen: without gross distension. MS: No obvious swelling or deformities. Able to transition from sit to stand unassisted. Ambulates with bilaterally normal heel strike and toe off Neurological: Oriented to person, place, time and situation. Thought process intact. No gait abnormalities appreciated. Psychiatric: Appropriate mood and affect. Good judgment and insight. Results Reviewed Results Reviewed: 02/06/24 MR/MR lumbar spine wo con FINDINGS: Minimal degenerative retrolisthesis of L3 on L4 and L5 on S1. Degenerative grade 1 anterolisthesis of L4 on L5. Advanced degenerative disc disease from L3-S1. Moderate degenerative disc disease at all additional levels. Associated mixed Modic type discogenic endplate changes including Modic type I discogenic edema from L1-S1. Mild marrow edema within the posterior elements of L4-S1 consistent with degenerative stress reaction. No additional suspicious marrow edema. Small Schmorl's nodes in the superior end plates of T12 and L3. Otherwise, the vertebral body heights are well-maintained. The conus medullaris terminates at the level of L1-L2. The distal spinal cord is normal in appearance. No significant abnormalities of the paraspinal musculature. Limited evaluation of the intra-abdominal structures without significant abnormalities. The abdominal aorta is of normal contour and caliber. AXIAL SPINAL LEVELS: T12-L1: Mild diffuse disc bulge with superimposed central/left subarticular disc extrusion with superior migration. There is moderate bilateral facet joint arthropathy. There is mild bilateral neural foraminal stenosis. There is no spinal canal stenosis. L1-L2: Moderate diffuse disc bulge. There is mild bilateral facet joint arthropathy. There is mild left and no right neural foraminal stenosis. There is no spinal canal stenosis. L2-L3: Moderate diffuse disc bulge. There is moderate bilateral facet joint arthropathy. There is moderate bilateral neural foraminal stenosis. There is narrowing of the subarticular zones with no overt spinal canal stenosis centrally. L3-L4: Moderate diffuse disc bulge with posterior osseous ridging and superimposed bilateral foraminal protrusions. There is moderate bilateral facet joint arthropathy. There is mild to moderate bilateral neural foraminal stenosis. There is stenosis of the subarticular zones with mild spinal canal stenosis centrally. L4-L5: Prominent diffuse disc bulge exacerbated by uncovering from anterolisthesis. There is severe bilateral facet joint arthropathy. There is severe right and moderate to severe left neural foraminal stenosis. There is severe spinal canal stenosis. L5-S1: Moderate diffuse disc bulge with posterior osseous ridging. There is moderate bilateral facet joint arthropathy. There is moderate to severe bilateral neural foraminal stenosis. There is narrowing of the subarticular zones with no overt spinal canal stenosis centrally. IMPRESSION: Moderate to advanced multilevel degenerative spondyloarthropathy of the lumbar spine as described in detail above. Most notably, there is severe spinal canal stenosis at L4-L5. Mild spinal canal stenosis at L3-L4. Narrowing/stenoses of the subarticular zones from L2-S1. Moderate to severe neural foraminal stenoses from L2-S1. 11/15/2023 IMPRESSION: 1. Multilevel lumbar spondylosis with loss of disc space height severe at L5-S1. 2. Mild superior endplate compression deformity of the L1 vertebral body of indeterminate age. 3. Mild degenerative changes in the left hip. 4. Moderate degenerative changes in the bilateral sacroiliac joints. 5. Diffuse demineralization. 6. There is a pseudoarthrosis between the left L5 transverse process and the sacrum. Assessment & Plan Assessment & Plan (1) Lumbar back pain with radiculopathy affecting left lower extremity: Code(s): M54.16 - Radiculopathy, lumbar region Category: Medical (2) Lumbar stenosis with neurogenic claudication: Code(s): M48.062 - Spinal stenosis, lumbar region with neurogenic claudication Category: Medical (3) Spinal stenosis: Code(s): M48.00 - Spinal stenosis, site unspecified Category: Medical Plan Patient has exhausted conservative therapy including PT, NSAIDs, HEP Continue with Methocarbamol 500mg po BID as needed. Continue with home exercise program Referral placed to neuro spine to evaluate for severe stenosis Discussed options for treatment including diagnostic interventional testing, epidural steroid injections, peripheral nerve stimulation with Sprint, RFA and more permanent neuromodulation. Will schedule for left L4-5/L5-S1 transforaminal epidural steroid injection with local anesthetic under fluoroscopy guidance All questions and concerns were answered, patient agrees with the plan. follow up after MRI, sooner if needed Orders: Referrals Neuro Spine Referral M48.00 - Spinal stenosis, site unspecified, M48.062 - Spinal stenosis, lumbar region with neurogenic claudication, M54.16 - Radiculopathy, lumbar region Medications: Refilled methocarbamol No driving while taking this medication. 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
== END 2024-03-09 09:36 | disposition home or self-care (01) ==
PROVIDERS: PCP Internal Medicine; Visit Provider Registered Nurse Emergency
DX: M54.16 Radiculopathy, lumbar region (principal); M48.062 Spinal stenosis, lumbar region with neurogenic claudication; M48.00 Spinal stenosis, site unspecified
CPT/HCPCS: 99213; G2211

== ENCOUNTER → 2024-03-09 09:00 | Outpatient (BNVA) | payer MEDICARE, SELFPAY | PROVIDERS: PCP Internal Medicine; Visit Provider Registered Nurse Emergency | DX: M54.16 Radiculopathy, lumbar region (principal); M48.062 Spinal stenosis, lumbar region with neurogenic claudication; M48.00 Spinal stenosis, site unspecified | CPT/HCPCS: 99212 ==

== ENCOUNTER 2024-03-17 09:59 | Outpatient (REF) | payer MEDICARE, SELFPAY ==
--- NOTE | ~2024-03-17 | XR_ITS ---
EXAMINATION: X-ray lumbar spine 4 views. CLINICAL INFORMATION: Spinal stenosis, lumbar region with neurogenic claudication. COMPARISON: X-ray dated November 15, 2023. TECHNIQUE: Lateral views in neutral, flexion and extension position and AP projection. FINDINGS: There is a grade 1 anterolisthesis at L4-5 which remains unchanged during flexion and or extension positioning. Multilevel marginal osteophyte formation and endplate sclerosis and decreased intervertebral disc height or conspicuous at L5-S1. No acute cortical disruption. No lytic or blastic lesions. Vascular calcifications, likely aorta. XR/XR lumbar spine 4V min IMPRESSION: Grade 1 anterolisthesis L4-5 without instability. Multilevel thoracolumbar spondylosis. Electronically signed by: Mitch Cornelius MD 03/20/2024 10:54 AM [facility]
--- OUTSIDE RECORDS SUMMARY | 2024-03-17 12:12 | XMS_ITS | Encounter Summary ---
Author Organization [facility] Address [address] [place] [address] Care Team Providers Care Key Sander Name Role Phone Mikey Evans MD Primary Care Provider [phone] Encounter Details Date Type Department Care Team Description 12/18/2013 Transfer Records Medical Records [address] [place] [address] [facility] [address] [address] Social History Tobacco Use Types Packs/Day Years Used Date Smoking Tobacco: Some Days Cigarettes Smokeless Tobacco: Never Comments:pack lasts the week Alcohol Use Standard Drinks/Week Comments No 0 (1 standard drink = 0.6 oz pur e alcohol) Sex Assigned at Date Recorded Not on file documented as of this encounter Plan of Treatment Not on file documented as of this encounter Visit Diagnoses Not on filedocumented in this encounter Care Teams Key Sander Relationship Specialty Start Date End Date Mikey Evans MD [address] [place], [place] [id number] PCP - General Internal Medicine 08/23/13 documented as of this encounter
--- OUTSIDE RECORDS SUMMARY | 2024-03-17 12:12 | XMS_ITS | Encounter Summary ---
Author Organization [facility] Address [address] [place] [address] Care Team Providers Care Manager Financial Systems Name Role Phone Mikey Evans MD Primary Care Provider [phone] Encounter Details Date Type Department Care Team Description 03/17/2016 Release of Information Medical Records [address] [place] [id number] Abstract, Provider Social History Tobacco Use Types Packs/Day Years Used Date Smoking Tobacco: Some Days Cigarettes 0.3 10 Smokeless Tobacco: Current Alcohol Use Standard Drinks/Week Comments No 0 (1 standard drink = 0.6 oz pur e alcohol) Sex Assigned at Date Recorded Not on file documented as of this encounter Plan of Treatment Not on file documented as of this encounter Visit Diagnoses Not on filedocumented in this encounter Care Teams Manager Financial Systems Relationship Specialty Start Date End Date Mikey Evans MD [address] [place] [id number] PCP - General Internal Medicine 08/23/13 documented as of this encounter
--- OUTSIDE RECORDS SUMMARY | 2024-03-17 12:12 | XMS_ITS | Encounter Summary ---
Author Organization [facility] Address [address] [place] [address] Care Team Providers Care Process Helper Name Role Phone Mikey Evans MD Primary Care Provider [phone] Reason for Visit * Reason Onset Date Comments Prior Authorization 08/22/2015 Encounter Details Date Type Department Care Team Description 08/22/2015 Telephone Adult Medicine [facility] [address] [place] [address] [phone] Mikey Evans MD [address] [place] [id number] Prior Authorization Social History Tobacco Use Types Packs/Day Years Used Date Smoking Tobacco: Some Days Cigarettes 0.3 10 Smokeless Tobacco: Current Alcohol Use Standard Drinks/Week Comments No 0 (1 standard drink = 0.6 oz pur e alcohol) Sex Assigned at Date Recorded Not on file documented as of this encounter Miscellaneous Notes * Telephone Encounter - Phuong Franklin M.A. - 08/23/2015 11:41 AM EDT Nicotral inhaler not covered by insurance.. Must have tried two medications on formulary and failed. The patient has used none notied . Covered formulary meds: nicotine patch, gum or lozenges Thank you [place] reply back to p [phone] prior authorization pool Katey Franklin C.M.A. [facility] Prior Authorizations Ext: [phone] * Telephone Encounter - Raven Montenegro - 08/22/2015 3:33 PM EDT Pre Authorization for Medication Does the patient already have this medication?NO Is this a Cover My Meds request: Emerado of Medication nicotrol cartridge inhaler Dose of Medication How does patient take this med? Inhale 1 puff into the lungs as needed for smoking cessation What other dosage or similar medication have you tried in the past for this problem unknown Patients current medical insurance Medicaid PCC plan What Prescription Plan does the patient have? Medicaid Prescription Plan Tel # from back of prescription ID card [id number] What is the patients Prescription Plan ID #? [id number] What [facility] [place]: [place] / Plan: [place] / Product Type: MEDICAID [id number] documented in this encounter Plan of Treatment Not on file documented as of this encounter Visit Diagnoses Not on filedocumented in this encounter Care Teams Process Helper Relationship Specialty Start Date End Date Mikey Evans MD [address] [place] [id number] PCP - General Internal Medicine 08/23/13 documented as of this encounter
--- OUTSIDE RECORDS SUMMARY | 2024-03-17 12:12 | XMS_ITS | Encounter Summary ---
Author Organization [facility] Address [address] [place] [address] Care Team Providers Care Mitten Stitcher Name Role Phone Mikey Evans MD Primary Care Provider [phone] Reason for Visit * Reason Onset Date Comments Faxed Refill 11/25/2014 Encounter Details Date Type Department Care Team Description 11/25/2014 Telephone Adult Medicine [address] [phone] Mikey Evans MD [address] [place] [address] Faxed Refill Social History Tobacco Use Types Packs/Day Years Used Date Smoking Tobacco: Some Days Cigarettes 0.3 10 Smokeless Tobacco: Current Alcohol Use Standard Drinks/Week Comments No 0 (1 standard drink = 0.6 oz pur e alcohol) Sex Assigned at Date Recorded Not on file documented as of this encounter Miscellaneous Notes * Telephone Encounter - June Solares - 11/25/2014 11:21 AM EDT Patient would like script to be: E-PRESCRIBED/FAXED TO PHARMACY WHEN WAS THE PATIENT'S LAST APPOINTMENT IN ADULT MEDICINE? 09/05/14 WHEN WAS THE LAST TIME THE PATIENT SAW THEIR PCP? NEVER Does patient have an upcoming appointment? Yes 02/20/15 (THE MEDICATION REQUESTED IS ON THE MED LIST ABOVE) All of the medications requested were on the CURRENT MEDS list Did you check the Pharmacy information above?: YES Patient wants: 30 -day supply Is this a mail order prescription request ? NO Patients current insurance carrier is: Payor: [facility] MEDICAID / Plan: [facility] MEDICAID HMO $0 [id number] / Product Type: HMO [id number] documented in this encounter Plan of Treatment Not on file documented as of this encounter Visit Diagnoses Not on filedocumented in this encounter Care Teams Mitten Stitcher Relationship Specialty Start Date End Date Mikey Evans MD [address] [place] [phone] PCP - General Internal Medicine 08/23/13 documented as of this encounter
== END 2024-03-17 10:00 | disposition home or self-care (01) ==
LOC: HO.HOSX 09:59
PROVIDERS: PCP Internal Medicine; Referring Provider Registered Nurse Emergency; Visit Provider Physician Assistant
DX: M48.062 Spinal stenosis, lumbar region with neurogenic claudication (principal); M43.16 Spondylolisthesis, lumbar region
CPT/HCPCS: 72110; 99202

== ENCOUNTER 2024-03-17 09:59 | Outpatient (AMB) | payer MEDICARE, SELFPAY ==
--- NOTE | 2024-03-17 10:37 | A.SPINEOV_ITS ---
Vital Signs 03/17/24 10:56 Height 5 ft 2 in Weight 115 lb BMI 21.0 Intake Visit Reasons: LBP Intake Note: Ms. Anni Atkinson is here today c/o low back pain that radiates down the left leg causing numbness under the feet. Literacy Tutor Required: No Allergies No Known Allergies Allergy (Mild, Verified 03/17/24 10:58) N/A Physical Exam Vital Signs: BMI result Body Mass Index 21.0 Assessment & Plan Assessment & Plan (1) Lumbar stenosis with neurogenic claudication: Code(s): M48.062 - Spinal stenosis, lumbar region with neurogenic claudication Category: Medical (2) Spondylolisthesis, lumbar region: Code(s): M43.16 - Spondylolisthesis, lumbar region Category: Medical Plan Dear Yue, Thank you for referring Mrs Anni Atkinson to our office today. She is a very nice 68 year old female presents to the office today for evaluation of 1 year progressive low back pain, bilateral lower extremity pain left greater than right with standing walking. The symptoms started rather slowly, but over time have gotten progressively worse to now she is barely able to get out of the house, go to the grocery store etc.. She trialed physical therapy without much success. She trialed muscle relaxers and naproxen/Tylenol without much relief. It has gotten to the point now where she is having a hard time just standing up walking going from room to room in her house. Her is here with her today who testify that her quality of life is suffering significantly. As I understand it she is due for some upcoming injections as well. She was sent today to see us for evaluation with MRI showing grade 1 spondylolisthesis at L4- 5 with severe stenosis. PMH: She was a lifelong smoker until about 7 years ago, does have COPD but it is fairly well managed on Spiriva and albuterol. She does not have any shortness of breath at rest. Denies any history of cardiac disease, kidney problems. She did have a history of hepatitis-C remotely in the past but was given treatment for it. Denies any history of cancer, blood clots, bleeding disorders or other major medical problems. She has never had major abdominal problems or abdominal surgery Social hx: Quit smoking 7 years ago, smokes marijuana daily, occasional alcohol Medications: Naproxen, Spiriva, albuterol and a muscle relaxer Allergies: None Physical exam: Patient is awake alert oriented no acute distress, she walks with a flexed posture, strength bilateral lower extremities is normal, slightly brisk reflexes in the left lower extremity patella but rest of her reflexes are absent. Imaging review: Lumbar MRI done at [facility] shows severely collapsed disc at L4-5 with grade 1 anterior listhesis and severe central canal stenosis, also has moderate to severe degenerative disc disease at L5-S1. We did standing flexion-extension x-rays and this shows evidence of translation anteriorly suggesting instability. Impression: 68 year old female presents to the office today with 1 year progressive back pain, bilateral lower extremity pain, primarily in the left, who has pain with standing and walking gets better when she sits down. She has a grade 1 spondylolisthesis at L4-5 with severe central canal stenosis. We discussed the natural history of degenerative disc disease, spondylolisthesis and stenosis. I used the patient's MRI and went through a fairly extensive discussion about treatment options. Her x-rays suggests instability and therefore we think the best option would be to proceed with surgery. Obviously she could continue to undergo treatment with the injections etc. but there would likely be very limited yield with these. The patient understands this and wants to go ahead and have the unstable segment fix. This should indirectly decompress the spinal canal as well. Dr. Bansal met with the patient, we discussed oblique lumbar interbody fusion L4-5. The patient would like to proceed. She does not have optimal bone quality so we ordered her a brace ahead of time she is going to wear after surgery and depending on the quality of her bones that we find at the time of surgery with the purchase of the pedicle screws, she may also need a bone stimulator as well. Pt was given risk and benefits of surgery including but not limited to infection, hematoma , nerve injury,durotomy, weakness,bowel/bladder injury, persistent pain, hardware failure as well as the option to continue with conser vative treatment and patient wishes to proceed with surgery. Pt is aware they should stop their motrin 7 days prior to surgery. All questions were answered to the best of our ability. If there is anything about this patients medical history that we have overlooked or concerns you have about us proceeding with surgery we would appreciate any input you can offer. Thank you for allowing us to care for your patient. The total time spent with this visit with this patient was[] minutes reviewing history, physical exam, [] imaging review, and implementation of treatment plan or further diagnostic testing Abram Bansal MD,PhD [facility] Orders: Orders XR lumbar spine 4V min Today M48.062 - Spinal stenosis, lumbar region with neurogenic claudication Medications: New [LSO] [place] LSO or equivalenet brace Lumbar fusion surgery 1 ea 0RF Coding Level of Care Code New Pt Level 4 (00021) Diagnoses Lumbar stenosis with neurogenic claudication M48.062 Spondylolisthesis, lumbar region M43.16
[2024-03-17 10:56] VITALS: BMI 21.0
== END 2024-03-17 12:02 | disposition home or self-care (01) ==
PROVIDERS: PCP Internal Medicine; Referring Provider Registered Nurse Emergency; Visit Provider Physician Assistant
DX: M48.062 Spinal stenosis, lumbar region with neurogenic claudication (principal); M43.16 Spondylolisthesis, lumbar region
CPT/HCPCS: 99204

== ENCOUNTER → 2024-03-17 11:35 | Outpatient (BNV) | payer MEDICARE, SELFPAY | PROVIDERS: PCP Internal Medicine; Referring Provider Registered Nurse Emergency; Visit Provider Radiology Diagnostic Radiology | DX: M43.16 Spondylolisthesis, lumbar region (principal); M47.895 Other spondylosis, thoracolumbar region | CPT/HCPCS: 72110 ==

== ENCOUNTER → 2024-03-28 10:39 | Outpatient (BNV) | payer MEDICARE, SELFPAY | PROVIDERS: Admitting Provider Neurological Surgery; PCP Internal Medicine; Visit Provider Internal Medicine Cardiovascular Disease | DX: R94.31 Abnormal electrocardiogram [ECG] [EKG] (principal); Z01.810 Encounter for preprocedural cardiovascular examination | CPT/HCPCS: 93010 ==

== ENCOUNTER 2024-04-04 06:49 | Inpatient (IN) | payer MEDICARE, SELFPAY ==
--- NOTE | 2024-03-28 | ECG_ITS ---
Test Reason : PRE OP Blood Pressure : */* mmHG Vent. Rate : 87 BPM Atrial Rate : 87 BPM P-R Int : 154 ms QRS Dur : 70 ms QT Int : 362 ms P-R-T Axes : 84 -24 39 degrees QTcB Int : 435 ms Normal sinus rhythm Nonspecific ST abnormality Abnormal ECG No previous ECGs available Referred By: Christi Davalos Electronically Signed By: SIDRA BURLESON MD
[2024-03-28 10:03] VITALS: BP 127/74; PULSE 101; RESP 16; O2SAT 97; BMI 21.0
--- NOTE | 2024-03-28 10:27 | HO.ANESPROP2 ---
Documented by User: Christi Davalos NP 03/30/24 14:31 HPI - Anesthesia Eval Consult details Narrative: 68yo F for L4-5 Oblique Lumbar Interbody Fusion, 04/04/24 No recent illness No CP/JONAS at baseline COPD: albuterol ~ 1 x daily PMFSH Active Problems Active Problems: All Active Problems Spondylolisthesis, lumbar region (Acute) Lumbar stenosis with neurogenic claudication (Acute) Spinal stenosis (Acute) Otitis media (Acute) Other allergic rhinitis (Acute) Personal history of nicotine dependence (Acute) SI (sacroiliac) joint dysfunction (Acute) Compression deformity of vertebra (Acute) Lumbar back pain with radiculopathy affecting left lower extremity (Acute) Vasomotor symptoms due to menopause (Acute) Encounter for monitoring alendronate therapy (Acute) COPD (chronic obstructive pulmonary disease) (Acute) Tubular adenoma of colon (Acute) Postmenopause (Acute) Breast cancer screening by mammogram (Acute) Osteoporosis (Acute) Past Medical History Medical History Arthritis Numbness [place] (hard of hearing) Full dentures Personal history of nicotine dependence SI (sacroiliac) joint dysfunction Compression deformity of vertebra Lumbar back pain with radiculopathy affecting left lower extremity Vasomotor symptoms due to menopause Encounter for monitoring alendronate therapy COVID-19 vaccine series completed Hepatitis C COPD (chronic obstructive pulmonary disease) Tubular adenoma of colon Postmenopause Breast cancer screening by mammogram Osteoporosis Family History Family history of problems with anesthesia: No Surgical History Surgical History Hx of blepharoplasty Hx of tubal ligation Hx of dilation and curettage H/O colonoscopy History of Problems with Anesthesia: No Social History Social History Housing: House Are you a primary complex care nurse practitioner to a significant other at home: No Do you presently have visiting nurse or other home services: No Alcohol intake: former Comment: aware of trip hazards Patient Tobacco Use Status: Former Tobacco user Tobacco use type: Cigarette Smoked in Last 30 Days: No e-Cigarette/Vaping Use: Currently Using Second Hand Smoke Exposure: Yes Use of substances other than those prescribed or required for medical reasons: Yes Substance Use Type: Marijuana Substance Use Frequency: Daily Have you been hit, kicked, punched, or otherwise hurt by someone within the past year? If so, by whom?: No Are you DNR?: No Advance Directives: No Advance Directives Information Provided: Yes Advance Directives on File: No Recently lost weight without trying: No service: No Current occupational status: retired Cognitive needs: No Hearing needs: Yes Vision needs: No Meds Allergies Allergy/AdvReac Type Severity Reaction Status Date / Time No Known Allergies Allergy Mild N/A Verified 03/17/24 10:58 Home Medications ?Medication ?Instructions ?Recorded ?Confirmed ?Last Taken ?Type cholecalciferol (vitamin D3) 25 25 mcg PO DAILY 05/28/20 03/28/24 04/02/24 History mcg (1,000 unit) capsule Exam Height,Weight and Vital Signs: Height 5 ft 2 in Weight 52.163 kg Last Vital Signs Pulse 101 H 03/28/24 10:03 Resp 16 03/28/24 10:03 BP 127/74 03/28/24 10:03 Pulse Ox 97 03/28/24 10:03 O2 Del Method Room Air 03/28/24 10:03 Pertinent Lab Results Pertinent Lab Results: Lab Results 03/28/24 03/28/24 Range/Units 10:55 11:03 WBC 10.4 (4.8-10.8) X10*3/uL RBC 4.28 (4.20-5.50) X10*6/uL Hgb 13.1 (12.0-16.0) g/dl Hct 40.0 (37.0-47.0) % MCV 93.5 (80.0-98.0) fL MCH 30.6 (27.0-33.0) pg MCHC 32.8 (31.0-35.0) g/dl RDW 12.8 (11.0-16.0) % Plt Count 294 (160-400) X10*3/uL MPV 8.3 L (9.4-12.3) fL Absolute Nucleated RBC 0.000 (0.0-0.012) X10*3/uL Nucleated RBC % (auto) 0.0 (0.0-0.2) /100WBC Sodium 141 (135-145) mmol/L Potassium 4.7 (3.3-5.1) mmol/L Chloride 110 H (96-108) mmol/L Carbon Dioxide 24 (22-29) mmol/L Anion Gap 12 (12-20) BUN 22 H (9-16) mg/dL Creatinine 0.83 (0.5-1.4) mg/dL Estim Creat Clear Calc 49.8 Estimated GFR > 60 Random Glucose 103 (60-115) mg/dL Calcium 9.8 (8.4-10.2) mg/dL Blood Type A Negative Antibody Screen NEGATIVE Narrative Narrative: EKG 03/2024 Vent. Rate : 87 BPM Atrial Rate : 87 BPM P-R Int : 154 ms QRS Dur : 70 ms QT Int : 362 ms P-R-T Axes : 84 -24 39 degrees QTcB Int : 435 ms Normal sinus rhythm Nonspecific ST abnormality Abnormal ECG No previous ECGs available Airway Mallampati Class: III TM Dist: >3cm Neck ROM: Full Denture: Upper and Lower Heart: RRR Lungs: CTAB Assessment and Plan Assessment Anesthesia Assessment: Anesthesia Plan Discussed, Smoking Cess. Discussed (marijuana) and PAT Visit Final Anesthetic Review Family History of Problems with Anesthesia: No History of Problems with Anesthesia: No Documented by User: Savannah Peter MD 04/04/24 10:34 [facility] Past Medical History Medical History Arthritis Numbness [place] (hard of hearing) Full dentures Personal history of nicotine dependence SI (sacroiliac) joint dysfunction Compression deformity of vertebra Lumbar back pain with radiculopathy affecting left lower extremity Vasomotor symptoms due to menopause Encounter for monitoring alendronate therapy COVID-19 vaccine series completed Hepatitis C COPD (chronic obstructive pulmonary disease) Tubular adenoma of colon Postmenopause Breast cancer screening by mammogram Osteoporosis Surgical History Surgical History Hx of blepharoplasty Hx of tubal ligation Hx of dilation and curettage H/O colonoscopy Social History Social History Housing: House Are you a primary complex care nurse practitioner to a significant other at home: No Do you presently have visiting nurse or other home services: No Alcohol intake: former Comment: aware of trip hazards Patient Tobacco Use Status: Former Tobacco user Tobacco use type: Cigarette Smoked in Last 30 Days: No e-Cigarette/Vaping Use: Currently Using Second Hand Smoke Exposure: Yes Use of substances other than those prescribed or required for medical reasons: Yes Substance Use Type: Marijuana Substance Use Frequency: Daily Have you been hit, kicked, punched, or otherwise hurt by someone within the past year? If so, by whom?: No Are you DNR?: No Advance Directives: No Advance Directives Information Provided: Yes Advance Directives on File: No Recently lost weight without trying: No service: No Current occupational status: retired Cognitive needs: No Hearing needs: Yes Vision needs: No Meds Allergies Allergy/AdvReac Type Severity Reaction Status Date / Time No Known Allergies Allergy Mild N/A Verified 03/17/24 10:58 Home Medications ?Medication ?Instructions ?Recorded ?Confirmed ?Last Taken ?Type cholecalciferol (vitamin D3) 25 25 mcg PO DAILY 05/28/20 03/28/24 04/02/24 History mcg (1,000 unit) capsule Exam Airway Mallampati Class: II (edentulous) Loose/Missing/Broken Teeth: Yes, Upper and Lower Assessment and Plan Final Anesthetic Review ASA Class: III Final Preanesthetic Review: Meds/Allgs Chart Reviewed, Consent Obtained/Reviewed and Anes Risks/Benef Reviewed Patient Risk: Low Procedure Risk: Intermediate Anesthetic Plan Anesthetic Plan: GA Disposition: Standard PACU
[2024-03-28 11:29] LABS: Hemoglobin 13.1 g/dl (12.0-16.0); Mean Corpuscular HGB Conc 32.8 g/dl (31.0-35.0); Mean Corpuscular Hemoglobin 30.6 pg (27.0-33.0); Mean Corpuscular Volume 93.5 fL (80.0-98.0); Mean Platelet Volume 8.3 fL (9.4-12.3); Platelet Count 294 X10*3/uL (160-400); Red Blood Count 4.28 X10*6/uL (4.20-5.50); Red Cell Distribution Width 12.8 % (11.0-16.0); White Blood Count 10.4 X10*3/uL (4.8-10.8)
[2024-03-28 12:45] LABS: Anion Gap 12 (12-20); Blood Urea Nitrogen 22 mg/dL (9-16); Calcium 9.8 mg/dL (8.4-10.2); Carbon Dioxide 24 mmol/L (22-29); Chloride 110 mmol/L (96-108); Creatinine Clr Calc Pharmacy 49.8; Estimated Glomerular Filt Rate > 60; Glucose Random 103 mg/dL (60-115); Potassium 4.7 mmol/L (3.3-5.1); Sodium 141 mmol/L (135-145)
[2024-04-04] VITALS (15 sets, daily range): BP systolic 107–155; BP diastolic 50–86; PULSE 70–112; RESP 16–20; TEMP 36.2–36.6; O2SAT 95–100
--- NOTE | ~2024-04-04 | FL_ITS ---
EXAMINATION: XR FLUOROSCOPY WITH IMAGES CLINICAL INFORMATION: OLIF COMPARISON: 03/17/2024 lumbar x-rays. TECHNIQUE: Fluoroscopy provided to: Dr. Bansal Fluoroscopy time: 1 minute, 43 seconds DAP: 6.84 Gycm2 Images: 5 FINDINGS: 5 spot images taken during L4-5 OLIF. Please refer to the full operative report for details. FL/FL guidance in OR IMPRESSION: Fluoroscopic guidance. Electronically signed by: Jose Alfredo Hartman MD 04/05/2024 08:34 AM [facility]
--- OUTSIDE RECORDS SUMMARY | 2024-04-04 06:54 | XMS_ITS ---
Author Organization [facility] Address [address] [place] [address] Care Team Providers Care Manager Heavy Equipment Name Role Phone Handy GATES, [place] Primary Care Provider Severo Leal [phone] ALLERGIES No Known Allergies REASON FOR VISIT Patient presents today for fibrosis MEDICATIONS Medication SIG (Take, Route, Frequency, Duration) Notes Start Date End Date Status Albuterol Sulfate HFA 108 (90 Base) MCG/ACT Inhalation for 50 Activ e Spiriva Respimat 1.25 MCG/ACT 2 puffs Inhalation Once a day Active Alendronate Sodium 70 MG 1 tablet Orally Active Fluticasone Propionate 50 MCG/ACT 1 spray in each nostril Nasally Once a day Active Vitamin D3 1000 UNIT 1 tablet Orally Onc e a day Active SOCIAL HISTORY Tobacco Use: Social History Observation Description Date Details (start date - stop date) Former Smoker NA - NA Sex Assigned At : Social History Observation Description Sex Assigned At Unknown Tobacco Use/Smoking Question Answer Notes Patient is a former smoker How long has it been since you last smoked? 1-5 years VITAL SIGNS BMI 21.21 kg/m2 05/05/2023 Blood pressure systolic 000 mm Hg 05/05/19 24 Blood pressure diastolic 00 mm Hg 024 Height 62 in 05/05/2023 Temperature 98.2 degrees Fahrenheit 05/05/19 24 Weight 116 lbs 05/05/2023 Encounters Encounter Location Date Provider Diagnosis [facility] [address] [place] [address] 05/05/2023 Severo Carvalho Encounter for screening for malignant neoplasm of colon Z12.11 ; Liver fibrosis K74.00 ; History of hepatitis C Z86.19 and History of adenomatous polyp of colon Z86.010 ASSESSMENTS Encounter Date Diagnosis Assessment Notes Treatment Notes Treatment Clinical Notes 05/05/2023 Encounter for screening for malignant neoplasm of colon (ICD-10 - Z12.11) Repeat colonoscopy in 202505/05/2023 Liver fibrosis (ICD-10 - K74.00) 05/05/2023 History of hepatitis C (ICD-10 - Z86.19) 05/05/2023 History of adenomatous polyp of colon (ICD-10 - Z86.010) PLAN OF TREATMENT Treatment Notes Assessment Notes Encounter for screening for malignant ne oplasm of colon Repeat colonoscopy in 2025 Pending Test Test Name Order Date LIVER PROFILE 05/05/2023 CBC w DIFF 05/05/2023 ALPHA-FETOPROTEIN,TUMOR MARKER Prothrombin Time INR 05/05/2023 Liver Fibrosis Pnl 05/05/2023 US abdomen comp w elastography 4 Next Appt Details Follow Up: 1 Year, Reason: Provider Name:Severo Carvalho , 05/04/2024 09:00:00 AM, [address], [address], [place], [address], Progress Notes * Examination Category Sub-Category Detail Notes General Examination GENERAL APPEARANCE: pleasant , well nourished, well developed, in no acute distress HEAD: EYES: sclera non-icteric EARS: NOSE: THROAT: NECK/THYROID: no cervical lymphade nopathy, neck supple HEART: S1, S2 normal CHEST: LUNGS: clear to auscultatio n bilaterally ABDOMEN: normal bowel sounds, no guarding or rigidity, no guarding or rigidity, no masses palpable, soft, nontender, nondistended NEUROLOGIC: alert and oriented SKIN: nonjaundiced, no spi maribel angiomata EXTREMITIES: no edema PERIPHERAL PULSES: BACK: BREASTS: MUSCULOSKELETAL: MALE GENITOURINARY: LYMPH NODES: RECTAL EXAM: FEMALE GENITOURINARY: ORAL CAVITY: mucosa moist
--- OUTSIDE RECORDS SUMMARY | 2024-04-04 06:54 | XMS_ITS ---
Author Organization [facility] Address [address] [place] [address] Care Team Providers Care Sales Engineer Engineered Products Name Role Phone Handy GATES, [place] Primary Care Provider Severo Leal Unavailable [phone] REASON FOR VISIT Patient presents today for liver fibrosis Encounters Encounter Location Date Provider Diagnosis [facility] [address] [place] [address] 03/11/2023 Severo Carvalho PLAN OF TREATMENT Next Appt Details Provider Name:Severo Carvalho , 05/04/2024 09:00:00 AM, [address], [address], [place], [address],
--- OUTSIDE RECORDS SUMMARY | 2024-04-04 06:54 | XMS_ITS | Patient Health Record ---
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 Role Phone Handy GATES, [place] Primary Care Provider Severo Leal Unavailable [phone] ALLERGIES No Known Allergies RESULTS Component Value Reference Range Notes Complete Blood Count Auto Di ff Reviewed date:05/21/2023 12:52:56 PM Interpretation: Performing Lab:[facility], [address] [place] [id number] Notes/Report: White Blood Count 8.7 4.8-10.8 X10*3/uL Red Blood Count 4.25 4.20-5.50 X10*6/uL Hemoglobin 12.8 12.0-16.0 g/dl Hematocrit 40.2 37.0-47.0 % Mean Corpuscular Volume 94.6 80.0-98.0 fL Mean Corpuscular Hemoglobin 30.1 27.0-33.0 pg Mean Corpuscular HGB Conc 31.8 31.0-35.0 g/dl Red Cell Distribution Width 13.4 11.0-16.0 % Platelet Count 287 160-400 X10*3/uL Mean Platelet Volume 8.5 9.4-12.3 fL Neutrophils Percent Auto 55.3 45-73 % Imm Gran Pct Auto 0.5 0.0-0.4 % Lymphocytes Percent Auto 32.3 20-40 % Monocytes Percent Auto 8.7 2-11 % Eosinophils Percent Auto 2.3 0-4 % Basophils Percent Auto 0.9 0-2 % NRBC Pct Auto 0.0 0.0-0.2 /100WBC Neutrophils Absolute Auto 4.8 2.0-8.3 x10*3/u L Imm Gran Abs Auto 0.04 0.00-0.03 X10*3/uL Lymphocytes Absolute Auto 2.8 1.2-4.9 X10*3/u L Monocytes Absolute Auto 0.8 0.1-1.2 X10*3/uL Eosinophils Absolute Auto 0.2 0.0-0.4 X10*3/u L Basophils Absolute Auto 0.1 0.0-0.2 X10*3/uL NRBC Abs Auto 0.000 0.0-0.012 X10*3/uL Prothrombin Time INR Reviewed date:05/21/2023 12:53:02 PM Interpretation: Performing Lab:[address] [address] Notes/Report: Prothrombin Time 11.5 11.1-13.3 SEC INTERNATIONAL NORM RATIO 0.9 0.9-1.1 INTERNATIONAL NORMALIZED RATIO (INR) REFERENCE RANGES Reference Range For patients not on anticoagulant therapy: 0.9 - 1.1 INR ranges for oral anticoagulant therapy: For prevention and treatment of venous thrombosis and pulmonary embolism: 2.0 - 3.0 For acute myocardial infarction with aspirin therapy: 2.0 - 3.0 For acute myocardial infarction without aspirin therapy: 3.0 - 4.0 For patients with mechanical prosthetic heart valves: 2.5 - 3.5 Liver Panel Reviewed date:05/29/2023 10:12:09 PM Interpretation: Performing Lab:[address] [address] Notes/Report: Bilirubin Total 0.3 0.0-1.0 mg/dL Bilirubin Direct 0.1 0.0-0.5 mg/dL Aspartate Amino Transferase 22 5-31 U/L Alanine Aminotransferase 20 0-31 U/L Total Protein 7.0 6.5-8.0 g/dL Albumin Level 3.9 3.5-5.0 g/dL Alkaline Phosphatase 66 39-117 U/L Alpha Fetoprotein Reviewed date:05/29/2023 12:56:49 AM Interpretation: Performing Lab:[address] [address] Notes/Report: Alpha Fetoprotein 3.2 Reference Range: <6.1 The use of AFP as a tumor marker in females is not recommended. This test was performed using the Chuckie Ha chemiluminescent method. Values obtained from different assay methods cannot be used interchangeably. AFP levels, regardless of value, should not be interpreted as absolute evidence of the presence or absence of disease. THIS TEST WAS PERFORMED AT: [facility] [address] [place] [id number] CHICO LU MD Liver Fibrosis Pnl Reviewed date:05/29/2023 12:58:52 AM Interpretation: Performing Lab:[facility], [address] [place] [id number] Notes/Report: Liver Fibrosis Score 0.23 Liver Fibrosis Stage F0-F1 Liver Fibrosis Interpretation SEE NOTE no fibrosis Fibro Test Score (f) Metavir Score f>=0 and f<=0.21 : F0 (no fibrosis) f>0.21 and f<=0.27 : F0-F1 (no fibrosis) f>0.27 and f<=0.31 : F1 (minimal fibrosis) f>0.31 and f<=0.48 : F1-F2 (minimal fibrosis) f>0.48 and f<=0.58 : F2 (moderate fibrosis) f>0.58 and f<=0.72 : F3 (advanced fibrosis) f>0.72 and f<=0.74 : F3-F4 (advanced fibrosis) f>0.74 and f<=1.00 : F4 (severe fibrosis) Nec Inflam Act Score 0.05 Nec Inflam Act Grade A0 Nec Inflam Act Interpretation SEE NOTE no activity ActiTest Score (a) Metavir Score a>=0 and a<=0.17 : A0 (no activity) a>0.17 and a<=0.29 : A0-A1 (no activity) a>0.29 and a<=0.36 : A1 (minimal activity) a>0.36 and a<=0.52 : A1-A2 (minimal activity) a>0.52 and a<=0.60 : A2 (significant activity) a>0.60 and a<=0.62 : A2-A3 (significant activity) a>0.62 and a<=1.00 : A3 (severe activity) TBY-Ynigx-9-Macroglobulin 293 106-279 mg/dL FIB-Haptoglobin 172 43-212 mg/dL FIB-Apolipoprotein A1 148 101-198 mg/dL FIB-Total Bilirubin 0.3 0.2-1.2 mg/dL FIB-GGT 12 3-65 U/L FIB-ALT 15 6-29 U/L Reference ID [id number] Footnote SEE NOTE The reliability of results is dependent on compliance with the preanalytical and analytical conditions recommended by [employer]. The tests have to be deferred for: acute hemolysis, acute hepatitis, acute inflammation, extra hepatic cholestasis. The advice of a specialist should be sought for interpretation in chronic hemolysis and Gilbert's syndrome. The test interpretation is not validated in liver transplant patients. Isolated extreme values of one of the components should lead to caution in interpreting the results. In case of discordance between a biopsy result and a test, it is recommended to seek the advice of a specialist. The causes of these discordances could be due to a flaw of the test or to a flaw in the biopsy: i.e. a liver biopsy has a 33% variability rate for one fibrosis stage. FibroTest is interpretable for chronic hepatitis B and C, alcoholic and non alcoholic steatosis. ActiTest is interpretable for chronic hepatitis B and C. The performance characteristics have been determined by [facility]. It has not been cleared or approved by the U.S. Food and Drug Administration. Performance characteristics refer to the analytical performance of the test. [employer], the associated logo, [employer] and all associated [employer] hooks are the registered trademarks of [employer]. All third alliance party hooks - (R) and (TM) - are the property of their respective owners. (C) 1318-1621 [employer]. All rights reserved. THIS TEST WAS PERFORMED AT: [facility] [facility] [address] [place] [address] JOSHUA BEAVER MD,PHD,GITA US abdomen comp w elastograp hy Reviewed date:06/06/2023 02:37:10 PM Interpretation: Performing Lab: Notes/Report: [address] [address] Ultrasound Report Signed Patient: Lizette Soni MR#: [id number] : 1955 Acct:[id number] Age/Sex: 67 / F ADM Date: 05/21/23 Loc: HO.US Attending Dr: Severo Carvalho MD Ordering Physician: Severo Carvalho Date of Service: 05/21/23 Procedure(s): US abdomen comp w elastography Accession Number(s): [id number] cc: Carolina Murrell MD; Severo Carvalho EXAMINATION: US COMPLETE ABDOMEN WITH LIVER ELASTOGRAPHY CLINICAL INFORMATION: Hepatitis C. Liver fibrosis. COMPARISON: Previous exam March 2022. TECHNIQUE: Real-time imaging of the abdominal viscera. Noninvasive ultrasound liver fibrosis assessment is performed using [employer] point quantification shear wave elastography (2D-SWE) with a C5-2 MHz transducer. Multiple elastography samples are obtained. FINDINGS: PANCREAS: Normal. ABDOMINAL AORTA: The proximal, middle, and distal aortic segments are normal in caliber. INFERIOR VENA CAVA: Visualized portions are normal. LIVER: Liver echotexture is increased. There are 2 cysts measuring 5 x 6 mm in the left lobe and 6 x 5 x 9 mm in the right lobe. No other focal liver lesion. No intrahepatic biliary duct dilatation. The liver is normal in contour and size. The right lobe measures 13 cm in length. The left lobe measures 7.5 cm in length. Portal flow is normal. Shear wave liver elastography median stiffness is 1.9 m/s (reference: normal median stiffness is 1.3 m/s or less). Previous 1.8 m/s. IQR/median stiffness to assess sampling precision is 0.01 (reference: good quality data set is IQR/median stiffness of 0.15 or less). GALLBLADDER: Not seen. COMMON BILE DUCT: Normal in caliber measuring 0.7 cm in diameter. RIGHT KIDNEY: Normal. No hydronephrosis. No renal calculi or focal parenchymal lesions. The kidney measures 9 cm in maximum dimension. LEFT KIDNEY: Normal. No hydronephrosis. No renal calculi or focal parenchymal lesions. The kidney measures 9 cm in maximum dimension. SPLEEN: Normal. The spleen measures 8 cm in maximum dimension. FREE FLUID: None. US/US abdomen comp w elastography IMPRESSION: 1. Echogenic morphologically normal liver. Small liver cysts. No other focal lesion. Gallbladder again not seen. 2. Liver elastography: Slightly elevated suggestive of compensated advanced chronic liver disease but need further test for confirmation. Adequate liver sampling. Liver elastography minimally increased from March 2022. REFERENCE: Society of Radiologists in Ultrasound Liver Stiffness Thresholds (2020): LIVER STIFFNESS THRESHOLDS: *Liver Stiffness equal or less than 1.3 m/s: High probability of being normal. *Liver Stiffness less than 1.7 m/s: In the absence of other known clinical signs, rules out compensated advanced chronic liver disease. *Liver Stiffness 1.7-2.1 m/s: Suggestive of compensated advanced chronic liver disease but need further test for confirmation. *Liver Stiffness over 2.1 m/s: Rules in compensated advanced chronic liver disease. *Liver Stiffness over 2.4 m/s: Suggestive of clinically significant portal hypertension. QUALITY OF DATA SET: *IQR/Median value equal or less than 0.15 implies a quality data set. *IQR/Median value over 0.15 implies a poor quality data set. SIGNIFICANT CHANGE FROM PRIOR EXAM: Significant change if liver stiffness measurement is 10% or greater from prior exam. OTHER CONSIDERATIONS: The stage of liver fibrosis may be overestimated in the setting of acute hepatitis, liver inflammation, elevated liver function tests, hepatic vascular congestion, obstructive cholestasis, non-fasting state, and infiltrative diseases such as amyloidosis and lymphoma. In some patients with NAFLD, the liver stiffness thresholds for compensated advanced chronic liver disease may be lower. In causes other than viral hepatitis and NAFLD, liver stiffness thresholds are not well established. 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 REASON FOR REFERRAL No Information MEDICATIONS Medication SIG (Take, Route, Frequency, Duration) [...] tablet Orally Onc e a day Active IMMUNIZATIONS Vaccine Route Administration Date Status Comme nts Influenza Unknown 12/14/2018 Administered Influenza Unknown 10/23/2020 Administered Influenza Unknown 10/16/2021 Administered Influenza Unknown 12/08/2022 Administered SOCIAL HISTORY Tobacco Use: Social History Observation Description Date Details (start date - stop date) Former Smoker NA - NA Sex Assigned At : Social History Observation Description Sex Assigned At Unknown Tobacco Use/Smoking Question Answer Notes Patient is a former smoker How long has it been since you last smoked? 1-5 years PROBLEMS Problem Type ICD Code Onset Dates Problem Status W/U Status Risk SNOMED Code Notes Problem Encounter for screening for malignant neoplasm of colon (Z12.11) Active confirmed 351834215 Problem Encounter for screening for malignant neoplasm of rectum (Z12.12) Active confirmed Screening fo r malignant neoplasm of rectum (991502457) Problem History of hepatitis C (Z86.19) Active confirmed 60014701072875 Problem Liver fibrosis (K74.0) Active confirmed 94878339 Problem History of adenomatous polyp of colon (Z86.010) Active confirmed 334217070 Problem Liver fibrosis (K74.00) Active confirmed 86432312 Problem Diverticulosis of colon (K57.30) Active confirmed Diverticulosi s of colon (718816811) VITAL SIGNS Temperature 98.2 degrees Fahrenheit 05/05/2023 Blood pressure diastolic 00 mm Hg 05/05/2023 Height 62 in 05/05/2023 Blood pressure systolic 000 mm Hg 05/05/2023 Weight 116 lbs 05/05/2023 BMI 21.21 kg/m2 05/05/2023 Encounters Encounter Location Date Provider Diagnosis [facility] [address] [place] [address] 05/05/2023 Severo Carvalho Encounter for screening for [...] colon (ICD-10 - Z86.010) PLAN OF TREATMENT Pending Test Test Name Order Date LIVER PROFILE 11/18/2017 LIVER PROFILE 03/10/2022 LIVER PROFILE 05/05/2023 CBC w DIFF 05/05/2023 CBC w DIFF 11/18/2017 CBC w DIFF 03/10/2022 PROTHROMBIN TIME (PT, INR) 03/10/2022 PROTHROMBIN TIME (PT, INR) 10/30/2020 PROTHROMBIN TIME (PT, INR) 11/18/2017 ALPHA-FETOPROTEIN,TUMOR MARKER 4 ALPHA-FETOPROTEIN,TUMOR MARKER 3 ALPHA-FETOPROTEIN,TUMOR MARKER 8 US ABD 10/30/2020 HCV LIVER FIBROSIS, FIBRO TEST 3 US ABDOMEN COMP WITH ELASTOGRAPHY 2022 Prothrombin Time INR 05/05/2023 Liver Fibrosis Pnl 05/05/2023 US abdomen comp w elastography 4 Future Test Test Name Order Date COLONOSCOPY 04/22/2016 COLONOSCOPY 01/19/2019 COLONOSCOPY 10/30/2020 Next Appt Details Provider Name:Severo Mahoney Carvalho , 05/04/2024 09:00:00 AM, [address] [place] [address], [address], [place], [address], Insurance Providers Payer Name Payer Address Payer Phone Subscriber Number Group Number Insured Name Patient Relationship to Insured Coverage Start Date Coverage End Date [facility] [address] [address] [place] [id number] LIZETTE SONI Self - patient is the insured MEDICAID OF [facility] [address] [place] [address] [id number] LIZETTE SONI Self - patient is the insured MEDICAL (GENERAL) HISTORY Medical History History ICD Code Denies AR,DM,CVA,renal disease COPD Negative screening colonoscopy --2005 Screening colonoscopy 06/2016 --flat > 1cm adenoma removed from ascending colon Osteoporosis History of chronic hepatitis C treated successfully in 2001 and 2002 with pegylated interferon and ribavirin; a liver biopsy in 2001 revealed a grade 2-3/4 hepatitis and and stage II/IV fibrosis. She had a negative hepatitis C viral load in 2017 Colonoscopy in 11/2020 with removal of 2 tubular adenomas Surgical History Surgery Date(Month/Year) D&C at age 16 Tubal ligation
--- NOTE | 2024-04-04 07:04 | PHA.MEDREC ---
Pharmacy Consult ? Medication Reconciliation Pharmacy has reviewed the medication reconciliation completed by nursing.
[2024-04-04] MEDS: Lactated Ringers 1,000 ML 100 ML IVCONT (07:17)
[2024-04-04] MEDS: methocarbamoL 750 MG TABLET PO (07:19)
[2024-04-04] MEDS: Gabapentin 300 MG CAPSULE PO (07:20)
--- NOTE | 2024-04-04 10:08 | MHC.SHP ---
Pre-Procedural Eval Section A - 24 Hr Update-Section A only Date of Service: 04/04/24 The patient is an INPATIENT: No Changes since office visit: No Cold of Flu in the past 2 weeks, No New Medical Problems, No Changes in Medication and No Patient answered all questions The patient has been examined within 24 hours of the surgical procedure. The History & Physical has been completed within 30 days and I have reviewed it.: No Section B - Complete if H&P > 30 days Chief Complaint: Spondylolisthesis, lumbar region Allergies: Allergies Allergy/AdvReac Type Severity Reaction Status Date / Time No Known Allergies Allergy Mild N/A Verified 03/17/24 10:58 Review of Systems Sugical H&P ROS: Negative: Constitution, Cardiovascular, Respiratory, Neurological, Psychiatric, Hem-Onc, Allergic/Immunologic, Gastrointestinal, Genitourinary, Musculoskeletal, Integumentary, Endocrine and Eyes/Ears/Nose/Throat Exam Surgical H&P Exam: Normal: HEENT, Normal: Heart, Normal: Lungs, Normal: Extremities, Normal: Abdomen, Normal: Skin and Normal: Neurological (awake, alert,oriented x 3 ) Plan Diagnosis/Plan: Unchanged L4-5 Oblique lumbar interbody fusion Time Spent With Patient Time: Total time managing care of this patient today _5___ minutes.
--- NOTE | 2024-04-04 12:53 | W.PM.OPN ---
Operative Note Operative Note Date of Service: 04/04/24 Narrative: Preop Diagnosis: 1.) L4-5 spondylolisthesis 2.) Neurogenic claudication Procedure: 1) L4-5 discectomy, arthrodesis and implantation cage through an anterolateral, retroperitoneal approach 2) L4-5 posterior instrumented fusion 3) allograft 4) Injection of 10 cc of Exparel at the transverse processi for a muscular erector spinae block and additional Exparel in paravertebral tissue for postop management Consent Informed Consent was obtained for this operation. I have explained the nature, purpose and benefits of the operation. I have discussed the risks and benefit of the operation including possible complications or adverse events with patient/family. Alternative(s) were discussed with the patient with their relative benefits and risks as well as the consequences of not accepting the operation were included in obtaining consent. Surgeon: GABE HANNAH MD, PHD Procedure Assisted By: paco Tran Description of Procedure This patient is suffering from back pain and neurogenic claudication symptoms due L4-5 spondylolisthesis and associated L4-5 spinal stenosis. The patient was offered an oblique lumbar interbody fusion L4-5. The procedure and complications were explained. The patient was consented. The patient was brought to the operating room and endotracheally intubated. The patient was turned in a lateral position with the left side up. Prep and drape was done followed by timeout. A small incision was made in the left lower abdominal quadrant. The muscle fascia was opened after which the 3 muscle layer was split to enter the retroperitoneal space. Dilators were docked in the anterior one third of the L4-5 disc space followed by a retractor. The retractor was opened. The L4-5 disc space was exposed. An annulotomy was done after which an elevator Jones was used to release the disc material from its endplates and to perforate the contralateral side. A partial discectomy was done. An 8 and 10 mm height trial implant was inserted. The discectomy was completed. The endplates were prepared. An 10 x 45 mm with 6 degree lordosis 4 web cage filled with allograft was inserted into the disc space under fluoroscopic guidance. This resulted in correction of the spondylolisthesis. The retractor was removed. Hemostasis was done. The incision was closed in 2 layers. Steri-Strips used to approximate incision. An OpSite with Tegaderm was used to cover the incision. This marked first part of the procedure. The patient was turned prone on the Kash spine table. 2C arms were installed for fluoroscopy. Prep and drape was done followed by a second timeout. Injection of 10 cc of Exparel at the bilateral L4 transverse processi for a muscular erector spinae block. Two paramedian incisions were made lateral from the L4 and L5 pedicles. The muscle fascia was opened after which the muscle layer was split bluntly to expose the posterolateral gutter. The following steps were taken. A pediguard tap was used to create a transpedicular trajectory into the vertebral body. A K wire was placed. A specially designed instrument was advanced over the K wire to decorticate the posterolateral gutter in preparation for the posterolateral fusion. A pedicle screw was advanced over the K wire and the K wire was removed. The steps were done for the bilateral L4 and L5 pedicles. A total of 4 screws were placed with a diameter of 6.5 x 40 mm. Pedicle screws were connected with 40 mm dominic bilaterally and locked down with locking caps. The extension towers were removed. The posterolateral gutter was filled with allograft to complete the posterolateral L4-5 fusion Hemostasis was done and the incision was closed in 2 layers. Steri-Strips were used to approximate the incision. An OpSite with tegaderm was used to cover the incision. All sponge and needle counts were correct. Patient was extubated and transferred in stable is to recovery room. Anesthesia: General Estimated Blood Loss (ml): 50 mL Duration of Surgery: 2 hours Complications: None Postoperative Plan: Admit to inpatient for observation
[2024-04-04] MEDS: Albuterol/Iprat 2.5/0.5MG 3 ML AMPUL.NEB INHALE (13:57)
[2024-04-04] MEDS: oxyCODONE HCl Immed Release 5 MG TABLET PO ×2 (14:14→17:30)
[2024-04-04] MEDS: ceFAZolin Sodium/Dextrose,Iso 2 GM/50 ML PIGGYBACK IV ×2 (17:30→23:57)
[2024-04-04] MEDS: 0.9 % Sodium Chloride 1,000 ML 75 ML IVCONT (17:36)
[2024-04-04] MEDS: Ketorolac Tromethamine 15 MG/ML VIAL IVPUSH (18:02)
[2024-04-04] MEDS: Acetaminophen 1,000 MG/100 ML PIGGYBACK 400 MG IV (18:02)
[2024-04-04] MEDS: Docusate Sodium 100 MG CAPSULE PO (21:12)
[2024-04-05] MEDS: Acetaminophen 1,000 MG/100 ML PIGGYBACK 400 MG IV ×2 (00:33→06:01)
[2024-04-05] MEDS: Ketorolac Tromethamine 15 MG/ML VIAL IVPUSH ×2 (01:19→06:47)
[2024-04-05 05:30] VITALS: BP 124/62; PULSE 86; RESP 16; TEMP 36.3; O2SAT 96
[2024-04-05] MEDS: ceFAZolin Sodium/Dextrose,Iso 2 GM/50 ML PIGGYBACK IV (05:30)
[2024-04-05] MEDS: 0.9 % Sodium Chloride 1,000 ML 75 ML IVCONT (05:59)
[2024-04-05] MEDS: Docusate Sodium 100 MG CAPSULE PO (07:08)
[2024-04-05] MEDS: Cholecalciferol (Vitamin D3) 25 MCG TABLET PO (07:08)
[2024-04-05] MEDS: oxyCODONE HCl Immed Release 5 MG TABLET 10 MG PO (07:09)
--- NOTE | 2024-04-05 09:03 | HO.POSTANES ---
Post Anesthesia Evaluation Post Anesthesia Evaluation Date of Service: 04/05/24 Vital Signs: Vital Signs Temp Pulse Resp BP Pulse Ox O2 Del Method 04/05/24 05:30 97.3 F 86 16 124/62 96 Room Air Anesthesia: General Endotracheal-GETA Mental Status: Awake Pain Control: Satisfactory Nausea/Vomiting: None Hydration: Adequate Anesthesia-Related Issues: No Anes. Related Issues
--- NOTE | 2024-04-05 09:15 | PM.DS ---
DS: Providers Provider Date of Service: 04/05/24 Date of admission: 04/04/24 06:49 Date of discharge: 04/05/24 Primary care physician: Carolina Murrell MD DS: Summary Time Attestation Discharge Coordination Time (in mins): 14 Quality: Safe Use of Opioids Does Pt have an Active Cancer Diagnosis on the Problem List?: No Quality: Stroke Does the patient have a stroke diagnosis?: No Physical Exam Vital Signs: Vital Signs: Last Vital Signs Temp 97.3 F 04/05/24 05:30 Pulse 86 04/05/24 05:30 Resp 16 04/05/24 05:30 BP 124/62 04/05/24 05:30 Pulse Ox 96 04/05/24 05:30 O2 Del Method Room Air 04/05/24 05:30 O2 Flow Rate 6 04/04/24 13:20 BMI result Body Mass Index 21.0 Discharge Plan Discharge Anticipated Discharge Date/Time: 04/05/24 09:15 Patient Disposition: Home, Self-Care Discharge Diagnosis: s/p L4-5 OLIF Referrals: Carolina Murrell MD [Primary Care Provider] - 1 Week Discharge Medications: New oxycodone 5 mg tablet See Rx Instructions .ROUTE .COMPLEX PRN (Reason: pain) Qty: 30 0RF Rx Instructions: Take 1-2 tablets by mouth every 4 hours. Partial Fill upon patient request. Continued fluticasone propionate 50 mcg/actuation spray,suspension 1 spray intranasal DAILY Qty: 16 0RF Rx Instructions: administer into each nostril Spiriva Respimat 2.5 mcg/actuation mist 2 puff inhalation DAILY Qty: 4 4RF cholecalciferol (vitamin D3) 25 mcg (1,000 unit) capsule 25 mcg PO DAILY albuterol sulfate 90 mcg/actuation HFA aerosol inhaler 1 inh inhalation QID PRN (Reason: shortness of breath or wheezing) Qty: 8.5 3RF methocarbamol 500 mg tablet 500 mg PO BID PRN (Reason: muscle spasm) Qty: 60 3RF Rx Instructions: No driving while taking this medication. Do no take with alcohol or other REGISTERED DIETICIAN Depressants (DME) LSO See Rx Instructions .Route .MEDSUPPLY Qty: 1 0RF Rx Instructions: [place] LSO or equivalenet brace Lumbar fusion surgery Discharge Orders: Discharge Order (Routine); Ordered 04/05/24 Ordered By: Jairo Thorne Diet: Advance to usual diet Activity on Discharge: As tolerated Stand Alone Forms: Patient Portal Discharge page Print Language: Kyrgyz Activity Restrictions/Additional Instructions: After your spinal surgery we ask you to observe the following restrictions/guidelines: Activity: It is normal to feel some discomfort as you increase your activity, but that will improve with time. We ask you avoid heavy lifting or acitivities that cause pain. As a general rule, 8lbs is a safe limit for lifting right after surgery. Walk as much as you feel comfortable but not to exhaustion. You will feel extra tired the first few days after surgery. Stay well hydrated. It is OK to walk up and down stairs You may return to driving when you are off narcotics (such as vicodin, oxycodone, dilaudid, etc), and you are back to normal functional capacity. If you have any concerns please check with office before driving. Return to work is specific to each patient and each surgery, so please speak with your doctor/PA at first follow up. Please bring paperwork such as FMLA at that time if you need it filled out. Medications: We recommend you take 1,000mg Tylenol every 8 hours for the first few weeks after surgery, if you do not have any liver issues and can tolerate this medication. Do not exceed 4,000mg daily. We will give you a short supply of narcotics after surgery (usually one weeks worth). If you need more please call the office but do not use more than prescribed. You will need to give our office 48 hours notice if you need narcotics refilled and we do not fill narcotics on weekends or evenings. If you are on a narcotic, it is a good idea to take a stool softener such as colace or senna to avoid constipation If you take blood thinner such as aspirin, Plavix, Coumadin, Effient, Eliquis etc for conditions such as Afib, DVT, Pulmonary embolus, coronary disease, stents etc please speak with your surgeon about specific details as to when you can resume these medications. You can resume NSAIDs on post op day 1 (eg: Motrin, Naproxen, etc). Follow up: Please call the office, , after surgery to arrange a 3 week follow up for wound check. Wound Care: You may remove your dressing on the first day after surgery. ?You may ?leave open to air. Please do not remove the steri strips underneath. they will fall off on their own in one week. IT IS NORMAL FOR THE WOUND TO OOZE OR BE BLOODY FOR A FEW DAYS AFTER SURGERY. ?IF THIS HAPPENS JUST PLACE NEW DRESSING OVER IT TO AVOID STAINING CLOTHES. You may shower on post op day # 1 We ask that you do not let the water soak the wound. If it does get wet, just towel dry lightly. Please do not scrub your incision or place any type of chemical/ointment on the wound. No tub baths, pools or jacuzzis for one month. If you have any leaking or redness from your wound, or fevers, please call the office. Care Plan Goals: Return to normal activity as tolerated Health Concerns: None Plan of Treatment: Follow-up in clinic in 2-3 weeks Assessment: POD: 1 Procedure: L4-5 OLIF Mag was seen this morning sitting urpright in bed on 3-S eating breakfast. She is a pleasant 68-year-old female who underwent L4-[address] Bansal yesterday. She reports she is up walking around is otherwise doing well. She feels her symptoms are overall much better than pre-operatively. She still reports mild pain in his low back with good relief with pain medication. She is voiding well, tolerating diet. Afebrile, vital signs stable. Full strength 5/5 bilateral LE's. Back dressings have some staining without signs of hematoma. No active sanguineous drainage. Area is dry. Plan: Patient meets criteria to be medically discharged home. I will send in a short supply of Oxycodone for her to take at home. This was discussed with Dr. Bansal. Jairo Bansal MD,PhD [facility]
--- NOTE | 2024-04-05 09:29 | MHC.CM.PN ---
IMM DELEIVERED PT LIVES WITH SPOUSE AND IS FUNCTIONALLY INDEPENDENT. NO SERVICES OR DME. +DRIVES. +HCP PCP DR. MOTT DP: PT HAS BEEN MEDICALLY CLEARED FOR DC HOME, NO SERVICES. PT HAS OWN RIDE HOME
== END 2024-04-05 10:07 | disposition home or self-care (01) | DRG 451 ==
LOC: HO.SSSA 06:51 → HO.S3 16:10
PROVIDERS: Neurological Surgery; Nurse Practitioner; Admitting Provider Physician Assistant; PCP Internal Medicine; Visit Provider Physician Assistant
PROC: 0SG00A0 Fusion of Lumbar Vertebral Joint with Interbody Fusion Device, Anterior Approach, Anterior Column, Open Approach (ICD-10-PCS; principal; 2024-04-04 10:40)
DX: M48.062 Spinal stenosis, lumbar region with neurogenic claudication (principal); M43.16 Spondylolisthesis, lumbar region; J44.9 Chronic obstructive pulmonary disease, unspecified; Z87.891 Personal history of nicotine dependence; Z79.51 Long term (current) use of inhaled steroids; Z79.899 Other long term (current) drug therapy
CPT/HCPCS: 36415; 80048; 85027; 86850; 86900; 86901; 93005; 94640; 97161; C1713; C1889; J0131; J0665; J0666; J0690; J1100; J1885; J2003; J2250; J2371; J2405; J2704; J3010; L8699

== ENCOUNTER → 2024-04-04 06:49 | Outpatient (BNV) | payer MEDICARE, SELFPAY | PROVIDERS: Admitting Provider Physician Assistant; PCP Internal Medicine; Visit Provider Neurological Surgery | DX: Z48.89 Encounter for other specified surgical aftercare (principal) | CPT/HCPCS: 20930; 22558; 22612; 22840; 22853; 99024 ==

== ENCOUNTER 2024-05-04 08:54 | Outpatient (AMB) | payer MEDICARE, SELFPAY ==
--- NOTE | 2024-05-04 09:00 | A.SPINEOV_ITS ---
Intake Visit Reasons: 1st post op Intake Note: Ms. Anni Atkinson is here today for her 1st post op. Medical I D Sales Required: No Allergies No Known Allergies Allergy (Mild, Verified 06/15/24 08:49) N/A Assessment & Plan Assessment & Plan (1) S/P lumbar spinal fusion: Code(s): Z98.1 - Arthrodesis status Category: Surgical Plan Procedure: L4-5 OLIF Mag is a pleasant 68 year old female who comes in today for her 1st postoperative visit after having L4-[address] Bansal a few weeks ago. To recap she was initially evaluated in clinic for back pain and neurogenic claudication symptoms. She reports that overall she has been doing very well since surgery, but does report some left-sided lateral leg pain that varies in intensity dependent on what she is doing. She reports this is overall a very mild pain. She feels much better than she did prior to surgery. She has not been taking the oxycodone & is only using Tylenol. She is completing her ADLs without issue, and navigating stairs without much trouble. Unfortunately, she reports increased activity at home due to her recently being diagnosed with cancer and undergoing chemotherapy. No new neurological deficits. The patient rises from a seated position without difficulty and ambulates well. Her posterior and anterolateral incision sites are closed and well healing. I would like to see her back again in 6 weeks and obtain a set of x-rays. Jairo Bansal MD,PhD [facility] Orders: Orders XR lumbar spine 4V min 05/04/24 Z98.1 - Arthrodesis status Coding Level of Care Code Global (54446) Diagnoses S/P lumbar spinal fusion Z98.1
== END 2024-05-04 09:25 | disposition home or self-care (01) ==
LOC: HO.HNS 08:55
PROVIDERS: PCP Internal Medicine; Visit Provider Physician Assistant
DX: Z98.1 Arthrodesis status (principal)
CPT/HCPCS: 99024

== ENCOUNTER 2024-05-04 08:54 | Outpatient (REF) | payer MEDICARE, SELFPAY | END 2024-05-04 08:55 | disposition home or self-care (01) | LOC: HO.HOSX 08:54 | PROVIDERS: PCP Internal Medicine; Visit Provider Physician Assistant | DX: Z98.1 Arthrodesis status (principal) | CPT/HCPCS: 99212 ==

== ENCOUNTER 2024-05-09 09:58 | Outpatient (REF) | payer MEDICARE, SELFPAY ==
--- NOTE | ~2024-05-09 | CT_ITS ---
EXAMINATION: CT LUNG SCREENING HISTORY: Smoking history TECHNIQUE: Low dose axial images were obtained from the sternal notch to upper abdomen without IV contrast per standard departmental protocol. Sagittal and coronal reformatted images were also obtained and reviewed. One or more of the following techniques was used for dose reduction: Automated exposure control, adjustment of the mA and/or kV according to patient size, use of iterative reconstruction technique. DLP: 38 mGy-cm COMPARISON: Comparison is made with the prior examination dated 04/12/2023. FINDINGS: Lung nodules: There is a 3 mm nodule in the medial aspect of the right upper lobe (series 503, image 35). A 3 mm nodule is also seen in the right middle lobe (series 503, image 95 was (. There is a 2 mm nodule in the left upper lobe (series 103, image 28). These were all present on the prior study. No new pulmonary nodules are identified. Emphysema: none Coronary Calcification: mild Aortic Arch Calcification: moderate Potentially Significant Incidentals : none Additional Chest Findings: There is no pleural or pericardial effusion. No mediastinal or axillary lymphadenopathy is identified. Visualized upper abdomen: The visualized portions of the liver, spleen, and adrenals have an unremarkable unenhanced appearance. CT/CT lung screening IMPRESSION: No suspicious pulmonary nodules are identified. LUNG-RADS ASSESSMENT: Lung-RADS 2: Benign MANAGEMENT: Continue annual screening with LDCT in 12 months Category S: N/A Electronically signed by: Severo Laura MD 05/09/2024 02:07 PM ZANDER
--- OUTSIDE RECORDS SUMMARY | 2024-05-09 11:40 | XMS_ITS | Patient Health Record ---
Author Organization [facility] Address [address] [place] [address] Care Team Providers Care Director Corporate Security Name Role Phone Handy GATES, Carolina Primary Care Provider Severo Leal Unavailable [phone] Allergies No Known Allergies Results Component Value Reference Range Notes Complete Blood Count Auto Di ff Reviewed date:05/21/2023 12:52:56 PM Interpretation: Performing Lab:[facility], [address] [place] [phone] Notes/Report: White Blood Count 8.7 4.8-10.8 X10*3/uL [...] 0.0-0.2 /100WBC Neutrophils Absolute Auto 4.8 2.0-8.3 x10*3/uL Imm Gran Abs Auto 0.04 0.00-0.03 X10*3/uL Lymphocytes Absolute Auto 2.8 1.2-4.9 X10*3/uL Monocytes Absolute Auto 0.8 0.1-1.2 X10*3/uL Eosinophils Absolute Auto 0.2 0.0-0.4 X10*3/uL Basophils Absolute Auto 0.1 0.0-0.2 X10*3/uL NRBC Abs Auto 0.000 0.0-0.012 X10*3/uL Prothrombin Time INR Reviewed date:05/21/2023 12:53:02 PM Interpretation: Performing Lab:[address] [address] Notes/Report: Prothrombin Time 11.5 11.1-13.3 SEC [employer]NATIONAL [...] Panel Reviewed date:05/29/2023 10:12:09 PM Interpretation: Performing Lab:[address] [address] Notes/Report: Bilirubin Total 0.3 0.0-1.0 mg/dL Bilirubin Direct 0.1 0.0-0.5 mg/dL Aspartate Amino Transferase 22 5-31 U/L Alanine Aminotransferase 20 0-31 U/L Total Protein 7.0 6.5-8.0 g/dL Albumin Level 3.9 3.5-5.0 g/dL Alkaline Phosphatase 66 39-117 U/L Alpha Fetoprotein Reviewed date:05/29/2023 12:56:49 AM Interpretation: Performing Lab:[address] [address] Notes/Report: Alpha Fetoprotein 3.2 Reference Range: <6.1 The use of AFP as a tumor marker in females is not recommended. This test was performed using the [place] chemiluminescent method. Values obtained from different assay methods cannot be used interchangeably. AFP levels, regardless of value, should not be interpreted as absolute evidence of the presence or absence of disease. THIS TEST WAS PERFORMED AT: [facility] [address] [address] CHICO LU MD Liver Fibrosis Pnl Reviewed date:05/29/2023 12:58:52 AM Interpretation: Performing Lab:[facility], [address] [place] [phone] Notes/Report: Liver Fibrosis Score 0.23 Liver Fibrosis [...] a>0.62 and a<=1.00 : A3 (severe activity) MQV-Hoowr-1-Macroglobuli n 293 106-279 mg/dL FIB-Haptoglobin 172 43-212 mg/dL FIB-Apolipoprotein A1 148 101-198 mg/dL FIB-Total Bilirubin 0.3 0.2-1.2 mg/dL FIB-GGT 12 3-65 U/L FIB-ALT 15 6-29 U/L Reference ID [id number] Footnote SEE NOTE The reliability of results [...] The performance characteristics have been determined by [facility]. It has not been cleared or approved by the U.S. Food and Drug Administration. Performance characteristics refer to the analytical performance of the test. [employer], the associated logo, [employer] and all associated [employer] hooks are the registered trademarks of [employer]. All third republican hooks - (R) and (TM) - are the property of their respective owners. (C) 5147-2974 [employer]. All rights reserved. THIS TEST WAS PERFORMED AT: [email or web address] [address] [place] [address] JOSHUA BEAVER MD,PHD,GITA US abdomen comp w elastograp hy Reviewed date:06/06/2023 02:37:10 PM Interpretation: Performing Lab: Notes/Report: [address] [address] Ultrasound Report Signed Patient: Lizette Soni MR#: [id number] : 1955 Acct:[id number] Age/Sex: 67 / F ADM Date: 05/21/23 Loc: HO.US Attending Dr: Severo Carvalho MD Ordering Physician: Severo Carvalho Date of Service: 05/21/23 Procedure(s): US abdomen comp w elastography Accession Number(s): [id number] cc: Carolina Murrell MD; Severo Carvalho EXAMINATION: [...] of Radiologists in Ultrasound Liver Stiffness Thresholds (2019): LIVER STIFFNESS THRESHOLDS: *Liver Stiffness equal or [...] in OV> 05/26/23 1413 DD/ 0816 TD/TT: Pigment Presser: [address] [address] Ultrasound Report Signed Patient: Lizette Soni MR#: [id number] : 1955 Acct:[id number] Age/Sex: 67 / F ADM Date: 05/21/23 Loc: HO.US Attending Dr: Severo Carvalho MD Ordering Physician: Severo Carvalho Date of Service: 05/21/23 Procedure(s): US abdomen comp w elastography Accession Number(s): [id number] cc: Carolina Murrell MD; Severo Carvalho EXAMINATION: US COMPLETE ABDOMEN WITH LIVER ELASTOGRAPHY CLINICAL INFORMATION: Hepatitis C. Liver fibrosis. COMPARISON: Previous exam 2022. TECHNIQUE: Real-time imaging of the abdominal [...] 5 x 6 mm in the left lob e and 6 x 5 x 9 mm in the right lobe. No other focal liver lesion. No intrahepatic biliary duct dilatation. The liver is normal in contour and size. The right lobe measures 13 cm in length. The left lobe measur es 7.5 cm in length. Portal flow is normal. Shear wave liver elastography median stiffness is 1.9 m/s (reference: normal median stiffn ess is 1.3 m/s or less). Previous 1.8 m/s. IQR/median stiffness to assess sampling precision is 0.01 (reference: good quality data se t is IQR/median stiffness of 0.15 or less). GALLBLADDER: Not seen. COMMON BILE DUCT: Normal in caliber measuring 0.7 cm in diameter. RIGHT KIDNEY: Normal . No hydronephrosis. No renal calculi or focal [...] lesion. Gallbladder again not seen. 2. Liver elastograph y: Slightly elevated suggestive of compensated advanced chronic jenn er disease but need further test for confirmation. Adequate liver sampling. Liver elastography minimally increased from March 2022. REFERENCE: Society of Radiologi sts in Ultrasound Liver Stiffness Thresholds (2019): LIVER STIFFNESS THRESHOLDS: *Liver Stiffness equ al or less than 1.3 m/s: High probability of being normal. *Liver Stiffness les s than 1.7 m/s: In the absence of other known clinical signs, rule s out compensated advanced chronic liver disease. *Liver Stiffness 1.7-2.1 m/s: Suggestive of compensated advanced chronic liver diseas e but need further test for confirmation. *Liver Stiffness ove r 2.1 m/s: Rules in compensated advanced chronic liver disease. *Liver Stiffness ove r 2.4 m/s: Suggestive of clinically significant portal hypertension. QUALITY OF DATA SET: *IQR/Median value eq ual or less than 0.15 implies a quality data set. *IQR/Median value ov er 0.15 implies a poor quality data set. SIGNIFICANT CHANGE F ROM PRIOR EXAM: Significant change i f liver stiffness measurement is 10% or greater from prior exam. OTHER CONSIDERATIONS: The stage of liver fibrosis may be overestimated in the setting of acute hepatitis, jenn er inflammation, elevated liver function tests, hepatic vascular congestion, obstructive cholestasis, non-fasting state, and infiltrat chintan diseases such as amyloidosis and lymphoma. In some patients with NAFLD, the liver stiffness thresholds for compensated advanced chronic liver disease may be lower. In causes other than viral hepatitis and NAFLD, liver stiffness thresholds are not well established. Dictated By: Savannah Sullivan MD Signed By: <Electronically signed by Savannah Sullivan MD in OV> 05/26/23 1413 DD/ 0816 TD/TT: Pigment Presser: TIEN Reason For Referral No Information Medications Medication SIG (Take, Route, Frequency, Duration) Notes [...] tablet Orally Onc e a day Active Immunizations Vaccine Route Administration Date Status Comme nts Influenza Unknown 12/14/2018 Administered Influenza Unknown 10/23/2020 Administered Influenza Unknown 10/16/2021 Administered Influenza Unknown 12/08/2022 Administered Social History Tobacco Use: Social History Observation Description Date Details (start date - stop date) Former Smoker NA - NA Tobacco Use/Smoking Question Answer Notes Patient is a former smoker How long has it been since you last smoked? 1-5 years Section Notes: Nonsmoker since 02/2016; no s ig alcohol Nonsmoker since 02/2016; no s ig alcohol Nonsmoker since 12/2017; no sig alcohol Nonsmoker since 12/2017; no sig alcohol Nonsmoker since 12/2017; no sig alcohol Nonsmoker since 12/2017; no sig alcohol Problems Problem Type SNOMED Code ICD Code Onset Dates Problem Status W/U Status Risk Notes Problem [id number] Encounter for screening for malignant neoplasm of colon (Z12.11) Active confirmed Problem 066457546 History of adenomatous polyp of colon (Z86.010) Active confirmed Problem Screening for malignant neoplasm of rectum (766084683) Encounter for screening for malignant neoplasm of rectum (Z12.12) Active confirmed Problem 42320793358489 History of hepatitis C (Z86.19) Active confirmed Problem 45871830 Liver fibrosis (K74.0) Active confirmed Problem Diverticulosis of colon (131046443) Diverticulosis of colon (K57.30) Active confirmed Problem 37950714 Liver fibrosis (K74.00) Active confirmed Encounters Encounter Location Date Provider Diagnosis [facility] [address] [place] [address] 04/20/2024 Severo Carvalho Plan Of Treatment Pending Test Test Name Order Date LIVER PROFILE 11/18/2017 LIVER PROFILE 03/10/2022 LIVER PROFILE 05/05/2023 CBC w DIFF 05/05/2023 CBC w DIFF 11/18/2017 CBC w DIFF 03/10/2022 PROTHROMBIN TIME (PT, INR) 03/10/2022 PROTHROMBIN TIME (PT, INR) 10/30/2020 PROTHROMBIN TIME (PT, INR) 11/18/2017 ALPHA-FETOPROTEIN,TUMOR MARKER 3 ALPHA-FETOPROTEIN,TUMOR MARKER 4 ALPHA-FETOPROTEIN,TUMOR MARKER 8 US ABD 10/30/2020 HCV LIVER FIBROSIS, FIBRO TEST 3 US ABDOMEN COMP WITH ELASTOGRAPHY 2022 Prothrombin Time INR 05/05/2023 Liver Fibrosis Pnl 05/05/2023 US abdomen comp w elastography 4 Future Test Test Name Order Date COLONOSCOPY 04/22/2016 COLONOSCOPY 01/19/2019 COLONOSCOPY 10/30/2020 Next Appt Details Provider Name:Severo Carvalho , 08/15/2024 10:10:00 AM, [address], [address], [place], [address], Insurance Providers Payer Name Payer Address Payer Phone Subscriber Number Group Number Insured Name Patient Relationship to Insured Coverage Start Date Coverage End Date [facility] [address] [address] [place] [address] [phone] [id number] AMISHA JACINTOPATRICIA LIZETTE Self - patient is the insured MEDICAID OF [employer] [address] [place] [address] [phone] [id number] LIZETTE SONI Self - patient is the insured Medical (General) History Medical History History ICD Code Denies VA,DM,CVA,renal disease COPD Negative screening colonoscopy 05-18-2005 Screening colonoscopy 06/2016 --flat > 1cm adenoma removed from ascending colon Osteoporosis History of chronic hepatitis C treated successfully in 2001 and 2002 with pegylated interferon and ribavirin; a liver biopsy in 2001 revealed a grade 2-3/4 hepatitis and and stage II/IV fibrosis. She had a negative hepatitis C viral load in 2016 Colonoscopy in 11/2020 with removal of 2 tubular adenomas Surgical History Surgery Date(Month/Year) D&C at age 16 Tubal ligation
--- OUTSIDE RECORDS SUMMARY | 2024-05-09 11:40 | XMS_ITS ---
Author Organization [facility] Address [address] [place] [address] Care Team Providers Care Power Wheelchair Mechanic Name Role Phone Handy GATES, Carolina Primary Care Provider Severo Leal [facility] [phone] REASON FOR VISIT cancel appt on 05/04/2024 Encounters Encounter Location Date Provider Diagnosis [facility] [address] [place] [address] 04/20/2024 Severo Carvalho Plan Of Treatment Next Appt Details Provider Name:Severo Carvalho , 08/15/2024 10:10:00 AM, [address] [facility], [address], [place], [address], Progress Notes * LIZETTE SONI B:1955 (68 yo F)Acc No.[id number]:04/20/2024 Patient:?NORMA SONI :1955???Age:68 Y???Sex:Female Address:[place] [address] * * Date:?
--- OUTSIDE RECORDS SUMMARY | 2024-05-09 11:40 | XMS_ITS ---
Author Organization [facility] Address [address] [place] [address] Care Team Providers Care Roof Panel Hanger Name Role Phone Handy GATES, Carolina Primary Care Provider Severo Leal [phone] Allergies No Known Allergies REASON FOR VISIT Patient presents today for fibrosis Medications Medication SIG (Take, Route, Frequency, Duration) [...] tablet Orally Onc e a day Active Social History Tobacco Use: Social History Observation Description Date Details (start date - stop date) Former Smoker NA - NA Tobacco Use/Smoking Question Answer Notes Patient is a former smoker How long has it been since you last smoked? 1-5 years Section Notes: Nonsmoker since 12/2017; no sig alcohol Vital Signs Temperature 98.2 degrees Fahrenheit 05/05/19 24 Blood pressure systolic 000 mm Hg 05/05/19 24 Blood pressure diastolic 00 mm Hg 024 Height 62 in 05/05/2023 Weight 116 lbs 05/05/2023 BMI 21.21 kg/m2 05/05/2023 Encounters Encounter Location Date Provider Diagnosis [facility] [address] [place] [address] 05/05/2023 Severo Carvalho Encounter for screening for malignant neoplasm of colon Z12.11 ; Liver fibrosis K74.00 ; History of hepatitis C Z86.19 and History of adenomatous polyp of colon Z86.010 Assessments Encounter Date Diagnosis (ICD Code) Assessment Notes Treatment Notes Treatment Clinical Notes Section Notes 05/05/2023 Encounter for screening for malignant neoplasm of colon (ICD-10 - Z12.11) Repeat colonoscopy in 2025 Overall, Lizette appears quite well. Her liver disease remains very stable and without any signs of liver decompensation based on her history and her exam. I did recommend followup studies with her yearly ultrasound, alpha-fetoprotein level, and other laboratories. We did review that her next colonoscopy will be due in 2025. I will plan to see her in one year for a followup office visit. I did advise her to certainly contact me prior to that if she has any problems or questions I can be of assistance with. Lizette and her were comfortable with this plan. Thank you again for allowing me to participate in Lizette's care. I shall continue to keep you advised of her progress. 05/05/2023 Liver fibrosis (ICD-10 - K74.00) Overall, Lizette appears quite well. Her liver disease remains very stable and without any signs of liver decompensation based on her history and her exam. I did recommend followup studies with her yearly ultrasound, alpha-fetoprotein level, and other laboratories. We did review that her next colonoscopy will be due in 2025. I will plan to see her in one year for a followup office visit. I did advise her to certainly contact me prior to that if she has any problems or questions I can be of assistance with. Lizette and her were comfortable with this plan. Thank you again for allowing me to participate in Lizette's care. I shall continue to keep you advised of her progress. 05/05/2023 History of hepatitis C (ICD-10 - Z86.19) Overall, Lizette appears quite well. Her liver disease remains very stable and without any signs of liver decompensation based on her history and her exam. I did recommend followup studies with her yearly ultrasound, alpha-fetoprotein level, and other laboratories. We did review that her next colonoscopy will be due in 2025. I will plan to see her in one year for a followup office visit. I did advise her to certainly contact me prior to that if she has any problems or questions I can be of assistance with. Lizette and her were comfortable with this plan. Thank you again for allowing me to participate in Lizette's care. I shall continue to keep you advised of her progress. 05/05/2023 History of adenomatous polyp of colon (ICD-10 - Z86.010) Overall, Lizette appears quite well. Her liver disease remains very stable and without any signs of liver decompensation based on her history and her exam. I did recommend followup studies with her yearly ultrasound, alpha-fetoprotein level, and other laboratories. We did review that her next colonoscopy will be due in 2025. I will plan to see her in one year for a followup office visit. I did advise her to certainly contact me prior to that if she has any problems or questions I can be of assistance with. Lizette and her were comfortable with this plan. Thank you again for allowing me to participate in Lizette's care. I shall continue to keep you advised of her progress. Plan Of Treatment Treatment Notes Assessment Notes Encounter for screening for malignant ne oplasm of colon Repeat colonoscopy in 2025 Pending Test Test Name Order Date LIVER PROFILE 05/05/2023 CBC w DIFF 05/05/2023 ALPHA-FETOPROTEIN,TUMOR MARKER 4 Prothrombin Time INR 05/05/2023 Liver Fibrosis Pnl 05/05/2023 US abdomen comp w elastography 4 Next Appt Details Follow Up: 1 Year, Reason: Provider Name:Severo Carvalho , 08/15/2024 10:10:00 AM, [address] [facility], [address], [place], [address], Progress Notes * AMISHA TOMASAJENNIFERCA GDO B:1955 (67 yo F)Acc No.[id number]:05/05/2023 Progress Notes Patient:?AMISHA RANDOLPHNORMA Provider:?Severo Carvalho MD :1955???Age:67 Y???Sex:Female D ate:05/05/2023 Address:[address] [place], [place] [id number] Pcp:Carolina Murrell MD Subjective: * Chief Complaints: * ???Patient presents today fo r fibrosis * HPI: ???incontinence:? I saw Lizette in followup today in regard to her previous history of hepatitis C, liver fibrosis, and discussion of colorectal cancer screening. She was accompanied by her . ?I last saw Lizette in February of 2022. Since that time she has been feeling well without any signs of jaundice, increasing abdominal girth, edema, pruritus, nor fatigue. She enjoys a good appetite, without any significant heartburn or dysphagia. Her bowel movements have been regular, other than some mild constipation that responds well to increasing her dietary fiber. She denies any signs of bleeding. ?Studies from last year after I saw her in the office included an abdominal ultrasound that was negative for any ascites, liver mass, splenomegaly, nor significant liver disease. Laboratories included normal chemistries, renal function, normal LFTs, normal alpha-fetoprotein level, normal CBC with platelet count, normal PT with INR, and a liver fibrosis score between F1-F2. * ROS:?General/Constitutional:?Change in appetite?denies.?Chills?denies.?Fatigue?denies.?Ophthalmologic:?Comments?all negative.?ENT:?Comments?all negative.?Respiratory:?hemoptysis?denies.?Cough?denies.?Cardiovascular:?Chest pain?denies.?Orthopnea?denies.?Gastrointestinal:?Comments?See HPI for details.?Genitourinary:?Hematuria?denies.?Dysuria?denies.?Incontinence?denies.?Musculoskeletal:?Painful joints?denies.?Weakness?denies.?Skin:?Itching?denies.?Rash?denies.?Neurologic:?Headache?denies.?Seizures?denies.?Psychiatric:?Comments?all negative.? * Medical History:? * Surgical History:?D&C Aborti on at age 16 Tubal ligation * Hospitalization/Major Diagno stic Procedure:?No Hospitalization History. * Family History:?Father: dece ased.?Mother: .?Siblings: alive, Intraabdominal cancer at age 8--brother.? There is no family history of colorectal cancer, liver cancer, colon polyps. * Social History:?Tobacco Use:?Tobacco Use/Smoking?Patient is a?former smoker,?How long has it been since you last smoked??1-5 years.?Drugs/Alcohol:?Alcohol Screen?Points: 0, Interpretation: Negative.?Miscellaneous:?Marital status: . Occupation: retired. ???Nonsmoker since 12/2017; no sig alcohol. * Medications:?TakingFluticaso ne Propionate 50 MCG/ACT Suspension 1 spray in each nostril Nasally Once a dayAlendronate Sodium 70 MG Tablet 1 tablet Orally Vitamin D3 1000 UNIT Tablet 1 tablet Orally Once a daySpiriva Respimat 1.25 MCG/ACT Aerosol Solution 2 puffs Inhalation Once a dayAlbuterol Sulfate HFA 108 (90 Base) MCG/ACT Aerosol Solution Inhalation Medication List reviewed and reconciled with the patientTaking Fluticasone Propionate 50 MCG/ACT Suspension 1 spray in each nostril Nasally Once a dayTaking Alendronate Sodium 70 MG Tablet 1 tablet Orally Taking Vitamin D3 1000 UNIT Tablet 1 tablet Orally Once a dayTaking Spiriva Respimat 1.25 MCG/ACT Aerosol Solution 2 puffs Inhalation Once a dayTaking Albuterol Sulfate HFA 108 (90 Base) MCG/ACT Aerosol Solution Inhalation Medication List reviewed and reconciled with the patient * Allergies:?N.K.D.A.yes[Aller gies Verified] Objective: * Vitals:?Wt: 116 lbs, Ht: 62 in, BMI:21.21 Index, BP: 000/00 mm Hg, Temp: 98.2. * Examination: ???General Examination: ?GENERAL APPEARANCE:?pleasant, well nourished, well developed, in no acute distress.?EYES:?sclera non-icteric.?ORAL CAVITY:?mucosa moist.?NECK/THYROID:?no cervical lymphadenopathy, neck supple.?SKIN:?nonjaundiced, no spider angiomata.?HEART:?S1, S2 normal.?LUNGS:?clear to auscultation bilaterally.?ABDOMEN:?normal bowel sounds, no guarding or rigidity, no guarding or rigidity, no masses palpable, soft, nontender, nondistended.?EXTREMITIES:?no edema.?NEUROLOGIC:?alert and oriented.? Assessment: * Assessment: 1.?Liver fibrosis - K74.00 ( Primary)?2.?Encounter for screening for malignant neoplasm of colon - Z12.11?3.?History of hepatitis C - Z86.19?4.?History of adenomatous polyp of colon - Z86.010? Overall, Lizette appears marcelina te well. Her liver disease remains very stable and without any signs of liver decompensation based on her history and her exam. I did recommend followup studies with her yearly ultrasound, alpha-fetoprotein level, and other laboratories. We did review that her next colonoscopy will be due in 2025. I will plan to see her in one year for a followup office visit. I did advise her to certainly contact me prior to that if she has any problems or questions I can be of assistance with. Lizette and her were comfortable with this plan. Thank you again for allowing me to participate in Lizette's care. I shall continue to keep you advised of her progress. Plan: * Treatment: * 2.?Encounter for screening for malignant neoplasm of colon? Notes: Repeat colonoscopy in 2025??3.?History of hepatitis C?LAB: LIVER PROFILE ?LAB: CBC w DIFF ?LAB: ALPHA-FETOPROTEIN,TUMOR MARKER ?LAB: Prothrombin Time INR ?LAB: Liver Fibrosis Pnl ?Imaging: US abdomen comp w elastography* sched 4/5/24 at 8:00 [facility]fast[facility] for[facility] prior * * Procedure Codes:?3017F COLOR ECTAL CA SCREEN DOC [id number] TOBACCO [id number] BP SCR NOT PRFRM REC REASON NOS * Preventive Medicine:? ??Urinary Incontinence:?Urinary Incontinence?Assessment:?Absent,?Plan of care documented:?No, reason not specified.? * Follow Up:?1 Year * * Sign off status: Completed true * Provider:?Severo Carvalho MD Date:? 024 Generated for Vanna arevalo/Elpidio/Mere on:?05/09/2024 11:39 AM EDT History and Physical Notes * HPI (History of Present Illness) Category Sub-Category Detail Notes Category Not es incontinence I saw Lizette in followup today in regard to her previous history of hepatitis C, liver fibrosis, and discussion of colorectal cancer screening. She was accompanied by her . I last saw Lizette in February of 2022. Since that time she has been feeling well without any signs of jaundice, increasing abdominal girth, edema, pruritus, nor fatigue. She enjoys a good appetite, without any significant heartburn or dysphagia. Her bowel movements have been regular, other than some mild constipation that responds well to increasing her dietary fiber. She denies any signs of bleeding. Studies from last year after I saw her in the office included an abdominal ultrasound that was negative for any ascites, liver mass, splenomegaly, nor significant liver disease. Laboratories included normal chemistries, renal function, normal LFTs, normal alpha-fetoprotein level, normal CBC with platelet count, normal PT with INR, and a liver fibrosis score between F1-F2. Examination Category Sub-Category Detail Notes Category Not es General Examination GENERAL APPEARANCE: pleasant , well [...]
--- OUTSIDE RECORDS SUMMARY | 2024-05-09 11:40 | XMS_ITS ---
Author Organization [facility] Address [address] [place] [address] Care Team Providers Care Special Needs Child Caregiver Name Role Phone Carolina Murrell MD Primary Care Provider Severo Leal [phone] REASON FOR VISIT Patient presents today for fibrosis Encounters Encounter Location Date Provider Diagnosis [facility] [address] [place] [address] 05/04/2024 Severo Carvalho Plan Of Treatment Next Appt Details Provider Name:Severo Carvalho , 08/15/2024 10:10:00 AM, [address], [address], [place], [address], Progress Notes * LIZETTE SONI GDO B:1955 (68 yo F)Acc No.[id number]:05/04/2024 Progress Notes Patient:?NORMA SONI Provider:?Severo Carvalho MD :1955???Age:68 Y???Sex:Female D ate:05/04/2024 Address:[id number] Pcp:Carolina Murrell MD Subjective: * Chief Complaints: * ???1. Patient presents today for fibrosis. * Medical History:? Objective: * Vitals:? Assessment: Plan: * Treatment: * * The named appointment provid er may or may not be the originator of this progress note, and it is not deemed complete until electronically signed by the appointment provider. Sign off status: Pending * Provider:?Severo Carvalho MD Date:? 025 Generated for Vanna arevalo/Elpidio/Mere on:?05/09/2024 11:40 AM EDT
== END 2024-05-09 09:59 | disposition home or self-care (01) ==
LOC: HO.CT 09:58
PROVIDERS: PCP Internal Medicine; Visit Provider Nurse Practitioner Family
DX: Z12.2 Encounter for screening for malignant neoplasm of respiratory organs (principal); Z87.891 Personal history of nicotine dependence
CPT/HCPCS: 71271

== ENCOUNTER → 2024-05-09 10:00 | Outpatient (BNV) | payer MEDICARE, SELFPAY | PROVIDERS: PCP Internal Medicine; Visit Provider Radiology Diagnostic Radiology | DX: F17.210 Nicotine dependence, cigarettes, uncomplicated (principal) | CPT/HCPCS: 71271 ==

== ENCOUNTER 2024-06-15 08:39 | Outpatient (AMB) | payer MEDICARE, SELFPAY ==
--- NOTE | 2024-06-15 08:48 | HO.SPINEOV ---
Intake Visit Reasons: 2nd post op with Xrays Intake Note: Ms. Anni Atkinson is here for 2nd post op with x-ray. Telecommunication Lines Repairer Required: No Allergies No Known Allergies Allergy (Mild, Verified 06/15/24 08:49) N/A Assessment & Plan Assessment & Plan (1) S/P lumbar spinal fusion: Code(s): Z98.1 - Arthrodesis status Category: Surgical Plan Procedure: L4-5 OLIF Mag is a pleasant 68 year old female who comes in today for her 2nd postoperative visit. To recap she was initially evaluated in clinic for back pain and neurogenic claudication symptoms. During her last clinic visit she did continue to report some left-sided lateral leg pain that varied in intensity dependent on activity. Today, she reports complete resolution of her preoperative pain. She is very satisfied with the surgery, and has been doing very well overall. I reviewed her x-ray imaging during this visit which shows stable placement of the surgical instrumentation with no changes from fluoroscopy. No new neurological deficits. The patient ambulates well and rises from a seated position without difficulty. The posterior and anterolateral incision sites are closed and well healing. I would like to follow up with Mag again 1 year out from surgery. I will order a CT scan of the lumbar spine to be completed 10 months out from surgery to evaluate for fusion progress. Jairo Bansal MD,PhD [facility] Coding Level of Care Code Global (51943) Diagnoses S/P lumbar spinal fusion Z98.1
--- OUTSIDE RECORDS SUMMARY | 2024-06-15 08:58 | XMS_ITS | Encounter Summary ---
Author Organization Formerly [facility] Address [address] [place] [address] Care Team Providers Care Primary Mill Roller Name Role Phone Mikey Evans MD Primary Care Provider [phone] Encounter Details Date Type Department Care Team Description 01/14/2016 Release of Information Medical Records [address] [place] [id number] Abstract, Provider Social History Tobacco Use Types [...] on filedocumented in this encounter Care Teams Primary Mill Roller Relationship Specialty Start Date End Date Mikey Evans MD [address] [place] [address] PCP - General Internal Medicine 08/23/13 documented as of this encounter
--- OUTSIDE RECORDS SUMMARY | 2024-06-15 08:58 | XMS_ITS | Encounter Summary ---
Author Organization [facility] [employer] [facility] Address [address] [place] [address] Care Team Providers Care Textile Cutting Machine Operator Name Role Phone Mikey Evans MD Primary Care Provider [phone] Reason for Visit * Reason Onset Date Comments Faxed Refill 11/25/2014 Encounter Details Date Type Department Care Team Description 11/25/2014 Telephone Adult Medicine [address] [id number] Mikey Evans MD [address] [place] [address] Faxed Refill Social History Tobacco Use Types [...] NO Patients current insurance carrier is: Payor: [facility] MEDICAID / Plan: [facility] MEDICAID HMO $0 [place] / Product Type: HMO [id number] documented in this encounter Plan of Treatment Not on file documented as of this encounter Visit Diagnoses Not on filedocumented in this encounter Care Teams Textile Cutting Machine Operator Relationship Specialty Start Date End Date Mikey Evans MD [address] [place] [address] PCP - General Internal Medicine 08/23/13 documented as of this encounter
== END 2024-06-15 09:56 | disposition home or self-care (01) ==
LOC: HO.HNS 08:40
PROVIDERS: PCP Internal Medicine; Visit Provider Physician Assistant
DX: Z98.1 Arthrodesis status (principal)
CPT/HCPCS: 99024

== ENCOUNTER → 2024-06-15 08:42 | Outpatient (BNV) | payer MEDICARE, SELFPAY | PROVIDERS: Visit Provider Radiology Diagnostic Radiology | DX: M43.26 Fusion of spine, lumbar region (principal); M47.895 Other spondylosis, thoracolumbar region | CPT/HCPCS: 72110 ==

== ENCOUNTER 2024-06-15 09:23 | Outpatient (REF) | payer MEDICARE, SELFPAY ==
--- NOTE | ~2024-06-15 | XR_ITS ---
EXAMINATION: X-ray lumbar spine 4 views. CLINICAL INFORMATION: Arthrodesis status. TECHNIQUE: AP and lateral views and neutral flexion and extension position, lumbar spine. COMPARISON: March 17, 2024. FINDINGS: Transpedicular screws secured with vertical rods through L4 and L5 vertebral bodies. Intervertebral disc spacer at L4-5. Grade 1 anterolisthesis L4-5 in neutral position which maintains during flexion and extension position. Multilevel marginal osteophyte formation and endplate sclerosis and decreased intervertebral disc height lower thoracic and lumbar spine. Vacuum phenomenon and marginal osteophyte formation with endplate sclerosis at L5-S1. No lytic or blastic lesions. No acute cortical disruption. Vascular calcifications, aorta. XR/XR lumbar spine 4V min IMPRESSION: Status post posterior lumbar fusion and intervertebral disc spacer placement L4-5 with persistent grade 1 anterolisthesis and no instability. Multilevel thoracolumbar spondylosis. Electronically signed by: Mitch Cornelius MD 06/16/2024 09:16 AM EDT
--- OUTSIDE RECORDS SUMMARY | 2024-06-15 08:57 | XMS_ITS | Encounter Summary ---
Author Organization [facility] Address [address] [place] [address] Care Team Providers Care Submarine Worker Name Role Phone Mikey [place] MD Primary Care Provider [phone] Encounter Details Date Type Department Care Team Description 04/12/2014 Business Doc Medical Records [address] [place] [address] Abstract, Provider Social History Tobacco Use Types [...] on filedocumented in this encounter Care Teams Submarine Worker Relationship Specialty Start Date End Date Mikey [place] MD [address] [place] [address] PCP - General Internal Medicine 08/23/13 documented as of this encounter
--- OUTSIDE RECORDS SUMMARY | 2024-06-15 08:57 | XMS_ITS | Clinical Summary ---
Author Organization [facility] Address [address] [place] [address] Care Team Providers Care Supervisor Stitching Department Name Role Phone Mikey [place] MD Primary Care Provider [phone] Allergies No known active allergies Medications Medication Sig Dispensed Refills Start Date End Date Status Ipratropium-Albuterol (COMBIVENT RESPIMAT) 20-100 MCG/ACT Aero Soln Inhale 1 Puff into the lungs 4 times daily. 1 Inhaler 5 08/22/2015 Active fluticasone 50 MCG/ACT nasal spray 1 [place] by Each Nare route daily. 1 Bottle 4 08/22/2015 Active nicotine (NICOTROL) 10 MG inhaler Inhale 1 Puff into the lungs as needed for Smoking cessation. 42 Each 0 08/22/2015 Active Cholecalciferol 1000 UNITS Cap Take 1 Cap by mouth daily. 30 Cap 5 09/10/2015 Active alendronate (FOSAMAX) 70 MG tablet TAKE 1 TABLET BY MOUTH ONCE A WEEK 4 Tab 0 03/27/2016 Active Active Problems Problem Noted Date Osteoporosis 04/26/2014 COPD (chronic obstructive pulmonary dise ase) 09/11/2013 Chronic hepatitis C 09/11/2013 Overview: Treated in 2007, anti-virals Resolved Problems Problem Noted Date Resolved Date Osteopenia 12/10/2013 04/26/2014 Immunizations Name Administration Dates Next Due Pneumoccoccal(Adult) Polysaccharide PPSV23 02/02 Pneumococcal Conjugate PCV-13 04/10/2014 Tdap 12/29/2012 Family History Medical History Relation Name Comments Cancer, Other Brother ?bowel and thr oat at age 8 skin cancer[other] Father Hypertension Mother CA Breast Negative Hx Relation Name Status Comments Brother Father Mother Social History Tobacco Use Types Packs/Day Years Used Date Smoking Tobacco: Some Days Cigarettes 0.3 10 Smokeless Tobacco: Current Tobacco Cessation:Ready to Q uit: Yes Alcohol Use Standard Drinks/Week Comments No 0 (1 standard drink = 0.6 oz pur e alcohol) Sex Assigned at Date Recorded Not on file Last Filed Vital Signs Vital Sign Reading Time Taken Comments Blood Pressure 110/66 08/22/2015 9:50 AM EDT Pulse 62 08/22/2015 9:50 AM EDT Temperature 36.4 ??C (97.5 ??F) 08/22/2015 9:50 AM ED T Respiratory Rate 14 08/22/2015 9:50 AM EDT Oxygen Saturation 96% 03/07/2015 9:35 AM EST Inhaled Oxygen Concentration - - Weight 51.4 kg (113 lb 4.8 oz) 08/22/2015 9:50 A M EDT Height 157.5 cm (5' 2 ) 08/22/2015 9:50 AM EDT Body Mass Index 20.72 08/22/2015 9:50 AM EDT Plan of Treatment Health Maintenance Due Date Last Done Comments Covid-19 Vaccine (#1) 01/02/1956 TOBACCO CHECK/ADVISE 07/03/1971 SHINGLES VACCINE (1 of 2) 07/03/2003 COLON CANCER SCREENING 06/15/2015 6 (External Completion of test per patient (Patient reports normal results)) MAMMOGRAM 11/15/2015 11/14/2014, 11/08/2013 BONE DENSITY SCREENING 2018 04/16/2014 PNEUMOCOCCAL VACCINE (3 - PPSV23 or PCV20) 2018 04/10/2014, 02/02/2013 CHOLESTEROL SCREENING 02/21/2020 02/20/2015, 014 DTAP/TDAP/TD (2 - Td or Tdap) 12/29/2022 12/29/2012 BMI CHECK/ADVISE 02/16/2024 INFLUENZA (Season Ended) 2024 014 (External Completion of Vaccination per patient) HEPATITIS C SCREENING Addressed 04/10/2014 Overri dden with the intention of not completing the topic Care Teams Supervisor Stitching Department Relationship Specialty Start Date End Date Mikey [place] MD [address] [place] [id number] PCP - General Internal Medicine 08/23/13
--- OUTSIDE RECORDS SUMMARY | 2024-06-15 08:57 | XMS_ITS | Encounter Summary ---
Author Organization [facility] Address [address] [place] [address] Care Team Providers Care Manager Of Housekeeping Name Role Phone Mikey [place] MD Primary Care Provider [phone] Encounter Details Date Type Department Care Team Description 03/17/2016 Release of Information Medical Records [address] [place] [id number] Abstract, Provider Social History Tobacco Use Types [...] filedocumented in this encounter Care Teams Manager Of Housekeeping Relationship Specialty Start Date End Date Mikey [place] MD [address] [place] [address] PCP - General Internal Medicine 08/23/13 documented as of this encounter
--- OUTSIDE RECORDS SUMMARY | 2024-06-15 08:57 | XMS_ITS | Encounter Summary ---
Author Organization [facility] Address [address] [place] [address] Care Team Providers Care Isotope Technologist Name Role Phone Mikey Evasn MD Primary Care Provider [phone] Reason for Visit * Reason Onset Date Comments Prior Authorization 08/22/2015 Encounter Details Date Type Department Care Team Description 08/22/2015 Telephone Adult Medicine [facility] [address] [place] [address] [phone] Mikey [place] MD [address] [place] [phone] Prior Authorization Social History Tobacco Use Types [...] Thank you Please reply back to p [phone] prior authorization pool Katey Franklin C.M.A. [facility] Prior Authorizations Ext: [phone] * Telephone Encounter - Raven Montenegro - 08/22/2015 3:33 PM EDT Pre Authorization for Medication Does the patient already have this medication?NO Is this a Cover My Meds request: [place] of Medication nicotrol cartridge inhaler Dose of [...] # from back of prescription ID card [phone] What is the patients Prescription Plan ID #? [id number] What [facility]acy [facility] the [facility] use[facility] Payor: [place] / Plan: MEDICAID [place] / Product Type: MEDICAID [id number] documented in this encounter Plan of Treatment Not on file documented as of this encounter Visit Diagnoses Not on filedocumented in this encounter Care Teams Isotope Technologist Relationship Specialty Start Date End Date Mikey [place] MD [address] [place] [id number] PCP - General Internal Medicine 08/23/13 documented as of this encounter
--- OUTSIDE RECORDS SUMMARY | 2024-06-15 08:57 | XMS_ITS | Encounter Summary ---
Author Organization [facility] Address [address] [place] [address] Care Team Providers Care Performance Manager Name Role Phone Mikey [place] MD Primary Care Provider [phone] Encounter Details Date Type Department Care Team Description 09/12/2013 Release of Information Medical Records [address] [place] [id number] Abstract, Provider Social History Tobacco Use Types [...] on filedocumented in this encounter Care Teams Performance Manager Relationship Specialty Start Date End Date Mikey [place] MD [address] [place] [address] PCP - General Internal Medicine 08/23/13 documented as of this encounter
== END 2024-06-15 09:24 | disposition home or self-care (01) ==
LOC: HO.HOSX 09:23
PROVIDERS: Visit Provider Physician Assistant
DX: Z98.1 Arthrodesis status (principal)
CPT/HCPCS: 72110; 99212

== ENCOUNTER 2024-08-16 06:36 | Outpatient (REF) | payer MEDICARE, SELFPAY ==
--- OUTSIDE RECORDS SUMMARY | 2024-08-15 06:10 | XMS_ITS ---
Author Organization [facility] Address [address] [place] [address] Care Team Providers Care Savings Teller Name Role Phone Handy GATES, [place] Primary Care Provider Severo Leal [phone] Allergies No Known Allergies REASON FOR VISIT Patient presents today for fibrosis Medications Medication SIG (Take, Route, Frequency, Duration) Notes Start Date End Date Status Fluticasone Propionate 50 MCG/ACT 1 spray in each nostril Nasally Once a day Active Spiriva Respimat 1.25 MCG/ACT 2 puffs Inhalation Once a day Active Vitamin D3 1000 UNIT 1 tablet Orally Onc e a day Active Albuterol Sulfate HFA 108 (90 Base) MCG/ACT Inhalation for 50 Activ e Social History Tobacco Use: Social History Observation Description Date Details (start date - stop date) Former Smoker NA - NA Tobacco Use/Smoking Question Answer Notes Patient is a former smoker How long has it been since you last smoked? 1-5 years Section Notes: Nonsmoker since 12/2017; no sig alcohol Vital Signs Blood pressure systolic 111 mm Hg 08/16/19 25 Blood pressure diastolic 77 mm Hg 025 Height 62 in 08/15/2024 Weight 126 lbs 08/15/2024 BMI 23.04 kg/m2 08/15/2024 Encounters Encounter Location Date Provider Diagnosis [facility] [address] [place] [address] 08/15/2024 Severo Carvalho Encounter for screening for malignant neoplasm of colon Z12.11 ; History of hepatitis C Z86.19 ; History of adenomatous polyp of colon Z86.010 and Liver fibrosis K74.00 Assessments Encounter Date Diagnosis (ICD Code) Assessment Notes Treatment Notes Treatment Clinical Notes Section Notes 08/15/2024 Encounter for screening for malignant neoplasm of colon (ICD-10 - Z12.11) 08/15/2024 History of hepatitis C (ICD-10 - Z86.19) 08/15/2024 History of adenomatous polyp of colon (ICD-10 - Z86.010) Need a colonoscopy end of 202508/15/2024 Liver fibrosis (ICD-10 - K74.00) Plan Of Treatment Treatment Notes Assessment Notes History of adenomatous polyp of colon Ne ed a colonoscopy end of 2025 Pending Test Test Name Order Date LIVER PROFILE 08/15/2024 CBC w DIFF 08/15/2024 ALPHA-FETOPROTEIN,TUMOR MARKER HCV LIVER FIBROSIS, FIBRO TEST Prothrombin Time INR 08/15/2024 US abdomen comp w elastography 5 Next Appt Details Follow Up: 1 Year, Reason: Provider Name:Severo Carvalho , 08/16/2025 09:20:00 AM, [address] [facility], [address], [place], [address], Progress Notes * LIZETTE SONI GDO B:1955 (69 yo F)Acc No.[id number]:08/15/2024 Progress Notes Patient: LIZETTE ALVARENGA Provider: Manuel Carvalho MD :1955 A ge:69 Y S ex:Female Date:08/15/2024 Address:[address] [place], [place] [id number] Pcp:Carolina Murrell MD Subjective: * Chief Complaints: * 1 . Patient presents today for fibrosis. * Medical History: D enies [place],DM,CVA,renal disease, COPD, Negative screening colonoscopy --2005, Screening colonoscopy 06/2016- flat > 1cm adenoma removed from ascending colon, Osteoporosis, History of chronic hepatitis C treated successfully in 2001 and 2002 with pegylated interferon and ribavirin; a liver biopsy in 2001 revealed a grade 2-3/4 hepatitis and and stage II/IV fibrosis. She had a negative hepatitis C viral load in 2017, Colonoscopy in 11/2020 with removal of 2 tubular adenomas. * Surgical History: D &C , at age 16 , Tubal ligation , Back surgery . * Family History: F ather: . M other: . S ibjennifer: alive, Intraabdominal cancer at age 6- brother. There is no family history of colorectal cancer, liver cancer, colon polyps. * Social History: T obacco Use: T obacco Use/Smoking P atient is a f ormer smoker, H ow long has it been since you last smoked? 1 -5 years. D rugs/Alcohol: A lcohol Screen P oints: 0, Interpretation: Negative. M iscellaneous: M arital status: . Occupation: retired. N onsmoker since 12/2017; no sig alcohol. * Medications: T aking Fluticasone Propionate 50 MCG/ACT Suspension 1 spray in each nostril Nasally Once a day , Taking Vitamin D3 1000 UNIT Tablet 1 tablet Orally Once a day , Taking Spiriva Respimat 1.25 MCG/ACT Aerosol Solution 2 puffs Inhalation Once a day , Taking Albuterol Sulfate HFA 108 (90 Base) MCG/ACT Aerosol Solution Inhalation , Discontinued Alendronate Sodium 70 MG Tablet 1 tablet Orally , Medication List reviewed and reconciled with the patient * Allergies: N .K.D.A. Objective: * Vitals: W t:126lbs, Ht: 62 in, BMI: 23.04 Index, BP:111/77mm Hg, Wt-k.15. Assessment: * Assessment: 1. E ncounter for screening for malignant neoplasm of colon - Z12.11 (Primary) 2 . H istory of hepatitis C - Z86.19 3 . H istory of adenomatous polyp of colon - Z86.010 4 . L iver fibrosis - K74.00 Plan: * Treatment: * 2.?History of adenomatous polyp of colon? Notes: Need a colonoscopy end of 2025??3.?Liver fibrosis?LAB: LIVER PROFILE ?LAB: CBC w DIFF ?LAB: ALPHA-FETOPROTEIN,TUMOR MARKER ?LAB: HCV LIVER FIBROSIS, FIBRO TEST ?LAB: Prothrombin Time INR ?Imaging: US abdomen comp w elastography* sched for 10/03/24 at 8:30 am [facility] Ultrasound dept 2nd floorfasting 8 hrs prior * * Preventive Medicine: Urinary Incontinence: U rinary Incontinence A ssessment: A bsent, P karishma of care documented: N o, reason not specified. * Follow Up: 1 Year * * The named appointment provid er may or may not be the originator of this progress note, and it is not deemed complete until electronically signed by the appointment provider. Sign off status: Pending * Provider: Manuel Carvalho MD Date: 08/15/2024 Generated for Vanna arevalo/Elpidio/Aparnaitting on: 08/16/2024 06:37 AM EDT
[2024-08-16 10:17] LABS: MANUAL DIFF FLAG NO
[2024-08-16 10:20] LABS: Hematocrit 37.4 % (37.0-47.0); Hemoglobin 12.4 g/dl (12.0-16.0); Imm Gran Abs Auto 0.04 X10*3/uL (0.00-0.03); Imm Gran Pct Auto 0.6 % (0.0-0.4); Lymphocytes Absolute Auto 2.4 X10*3/uL (1.2-4.9); Mean Corpuscular HGB Conc 33.2 g/dl (31.0-35.0); Mean Corpuscular Hemoglobin 30.6 pg (27.0-33.0); Mean Corpuscular Volume 92.3 fL (80.0-98.0); NRBC Abs Auto 0.000 X10*3/uL (0.0-0.012); NRBC Pct Auto 0.0 /100WBC (0.0-0.2); Platelet Count 270 X10*3/uL (160-400); Red Blood Count 4.05 X10*6/uL (4.20-5.50); White Blood Count 6.9 X10*3/uL (4.8-10.8)
[2024-08-16 10:24] LABS: INTERNATIONAL NORM RATIO 1.0 (0.9-1.1); Prothrombin Time 11.8 SEC (10.9-12.4)
[2024-08-16 10:41] LABS: Alanine Aminotransferase 39 U/L (0-31); Albumin Level 4.3 g/dL (3.5-5.0); Alkaline Phosphatase 69 U/L (39-117); Aspartate Amino Transferase 44 U/L (5-31); Total Protein 6.9 g/dL (6.5-8.0)
[2024-08-26 18:33] LABS: FIB-ALT 24 U/L (6-29); FIB-Alpha-2-Macroglobulin 326 mg/dL (106-279); FIB-Apolipoprotein A1 159 mg/dL (101-198); FIB-GGT 12 U/L (3-65); FIB-Haptoglobin 159 mg/dL (43-212); FIB-Total Bilirubin 0.3 mg/dL (0.2-1.2); Liver Fibrosis Score 0.25; Liver Fibrosis Stage F0-F1; Nec Inflam Act Grade A0; Nec Inflam Act Score 0.10
== END 2024-08-16 06:37 | disposition home or self-care (01) ==
LOC: HO.HMGCLDS 06:36
PROVIDERS: PCP Internal Medicine; Visit Provider Internal Medicine
DX: K74.00 Hepatic fibrosis, unspecified (principal); Z86.19 Personal history of other infectious and parasitic diseases
CPT/HCPCS: 36415; 80076; 81596; 82105; 85025; 85610

== ENCOUNTER 2024-09-01 07:56 | Outpatient (REF) | payer MEDICARE, SELFPAY ==
--- OUTSIDE RECORDS SUMMARY | 2024-08-15 06:10 | XMS_ITS ---
Author Organization [facility] Address [address] [place] [address] Care Team Providers Care Ship/Rec/Doc Control Name Role Phone Handy GATES, [place] Primary Care Provider Severo Leal Unavailable [phone] Allergies No Known Allergies Results Component Value Reference Range Notes Prothrombin Time INR Reviewed date:08/18/2024 09:06:23 PM Interpretation: Performing Lab:[facility], [address] [place] [phone] Notes/Report: Prothrombin Time 11.8 10.9-12.4 SEC INTERNATIONAL NORM RATIO 1.0 0.9-1.1 INTERNATIONAL NORMALIZED RATIO (INR) REFERENCE RANGES [...] mechanical prosthetic heart valves: 2.5 - 3.5 REASON FOR VISIT Patient presents today for [...] 08/15/2024 Encounters Encounter Location Date Provider Diagnosis [facility] [address] [place] [address] 08/15/2024 Severo Carvalho Encounter for screening for [...] 08/15/2024 CBC w DIFF 08/15/2024 ALPHA-FETOPROTEIN,TUMOR MARKER 5 HCV LIVER FIBROSIS, FIBRO TEST US abdomen comp w elastography 5 Next Appt Details Follow Up: 1 Year, Reason: Provider Name:Severo Carvalho , 08/16/2025 09:20:00 AM, [address], [address], [place], [address], Progress Notes * LIZETTE SONI B:1955 (69 yo F)Acc No.[id number]:08/15/2024 Progress Notes Patient: LIZETTE ALVARENGA Provider: Manuel Carvalho MD :1955 A ge:69 Y S ex:Female Date:08/15/2024 Address:[place], [place] Pcp:Carolina Murrell MD Subjective: * Chief Complaints: * 1 . Patient presents today for fibrosis. * Medical History: D enies [place],DM,CVA,renal disease, COPD, Negative screening colonoscopy 05-18-2005, Screening colonoscopy 06/2016- flat > 1cm adenoma removed from ascending colon, Osteoporosis, History of chronic hepatitis C treated successfully in 2001 and 2002 with pegylated interferon and ribavirin; a liver biopsy in 2001 revealed a grade 2-3/4 hepatitis and and stage II/IV fibrosis. She had a negative hepatitis C viral load in 2016, Colonoscopy in 11/2020 with removal of 2 tubular adenomas. * Surgical History: D &C , at age 16 , Tubal ligation , Back surgery . * Family History: F ather: . M other: . S iblings: alive, Intraabdominal cancer at age 6- brother. [...] iver fibrosis - K74.00 Plan: * Treatment: Value Reference Range P rothrombin Time 11.8 10.9-12.4 - SEC * I NTERNATIONAL NORM RATIO 1.0 0.9-1.1 - ?Imaging: US abdomen comp w elastography* sched for 10/03/24 at 8:30 am [facility] Ultrasound dept 2nd floorfasting 8 hrs prior * 2.?History of adenomatous polyp of colon? Notes: Need a colonoscopy end of 2025??3.?Liver fibrosis?LAB: LIVER PROFILE ?LAB: CBC w DIFF ?LAB: ALPHA-FETOPROTEIN,TUMOR MARKER ?LAB: HCV LIVER FIBROSIS, FIBRO TEST ?LAB: Prothrombin Time INR (Collection Date & Time - 08/16/2024 06:49 AM)* Value Reference Range P rothrombin Time 11.8 10.9-12.4 - SEC * I NTERNATIONAL NORM RATIO 1.0 0.9-1.1 - ?Imaging: US abdomen comp w elastography* sched for 10/03/24 at 8:30 am [facility] Ultrasound dept 2nd floorfasting 8 hrs prior [...] * Provider: Manuel Carvalho MD Date: 0 08/15/2024 Generated for Vanna arevalo/Elpidio/Aparnaitting on: 09/01/2024 07:57 AM EDT
--- NOTE | ~2024-09-01 | MM_ITS ---
EXAMINATION: MM SCREENING DIGITAL BREAST TOMOSYNTHESIS, BILATERAL CLINICAL INFORMATION: Screening. Asymptomatic. COMPARISON: Mammography: Comparison is made with available priors TECHNIQUE: Digital breast mammography with tomosynthesis is performed in both the craniocaudal and mediolateral oblique views along with computer-aided detection (CAD). FINDINGS: There are scattered areas of fibroglandular density (ACR BI-RADS breast composition Category b). There are no significant masses, abnormal calcifications, or other abnormalities. MM/MM tomosynthesis screening BI IMPRESSION: No mammographic evidence of malignancy. ASSESSMENT: BI-RADS BI-RADS 1 - Negative RECOMMENDATION: Routine annual mammography screening. 1 year F/U This examination should not preclude the clinical evaluation of a suspicious palpable abnormality. This patient's information was entered into a reminder system with a target due date for their next mammogram. Electronically signed by: Madelin Malone DO 09/11/2024 04:33 PM EDT
--- NOTE | ~2024-09-01 | MM_ITS ---
EXAMINATION: DXA BONE DENSITY AXIAL HISTORY: M81.0 - Age-related osteoporosis without current pathological fracture TECHNIQUE: VibeWrite Dual energy absorptiometry (DEXA) of the lumbar spine, total left hip, and femoral neck was performed. COMPARISON: Comparison is made with the prior examination dated 07/20/2022. FINDINGS: The bone mineral density of the lumbar spine is 0.969 g/cm2, corresponding to a T-score of -1.7, and a Z-score of 0.3. This is indicative of osteopenia. This represents a BMD change of -0.6% compared to the prior exam. This is not statistically significant. The bone mineral density of the left total hip is 0.686 g/cm2, corresponding to a T-score of -2.6, and a Z-score of -0.8. This is indicative of osteoporosis. This represents a BMD change of -5.1% compared to the prior exam. This is statistically significant. The bone mineral density of the left femoral neck is 0.670 g/cm2, corresponding to a T-score of -2.6, and a Z-score of -0.7. This is indicative of osteoporosis. This represents a BMD change of -1.0% compared to the prior exam. MM/XR DEXA axial skeleton IMPRESSION: Based on bone mineral density, and according to World Health Organization (WHO) criteria, the diagnosis is consistent with osteoporosis. Statistically, 68% of repeat scans fall within 1 SD (+/- 0.010 g/cm2 for AP spine L1-L4) and 1 SD (+/- 0.012 g/cm2 for femur total) FRAX is a trademark of the [employer] [place] [employer], a World Health Organization (WHO) Collaborating Center. Electronically signed by: Sveero Laura MD 09/01/2024 08:49 AM EDT
--- OUTSIDE RECORDS SUMMARY | 2024-09-01 07:58 | XMS_ITS | Clinical Summary ---
Author Organization [facility] Address [address] [place] [address] Care Team Providers Care Network Communications Engineer Name Role Phone Mikey Evans MD Primary Care Provider [phone] Allergies No known active allergies Medications Medication Sig Dispensed Refills Start Date End Date Status Ipratropium-Albuterol (COMBIVENT RESPIMAT) 20-100 MCG/ACT Aero Soln Inhale 1 Puff into the lungs 4 times daily. 1 Inhaler 5 08/22/2015 Active fluticasone 50 MCG/ACT nasal spray 1 Olga by Each Nare route daily. 1 Bottle [...] 62 08/22/2015 9:50 AM EDT Temperature 36.4 C (97.5 F) 08/22/2015 9:50 AM EDT Respiratory Rate 14 08/22/2015 9:50 AM EDT [...] Tdap) 12/29/2022 12/29/2012 BMI CHECK/ADVISE 02/16/2024 INFLUENZA (#1) 2024 11/29/2013 (Exte rnal Completion of Vaccination per patient) HEPATITIS C SCREENING Addressed 04/10/2014 Overri dden with the intention of not completing the topic Care Teams Network Communications Engineer Relationship Specialty Start Date End Date Mikey Evans MD [address] [place] [address] PCP - General Internal Medicine 08/23/13
== END 2024-09-01 07:57 | disposition home or self-care (01) ==
LOC: HO.MAMMO 07:56
PROVIDERS: PCP Internal Medicine; Visit Provider Internal Medicine
DX: Z12.31 Encounter for screening mammogram for malignant neoplasm of breast (principal); M81.0 Age-related osteoporosis without current pathological fracture
CPT/HCPCS: 77063; 77067; 77080

== ENCOUNTER → 2024-09-01 08:45 | Outpatient (BNV) | payer MEDICARE, SELFPAY | PROVIDERS: PCP Internal Medicine; Visit Provider Radiology Diagnostic Radiology | DX: E28.39 Other primary ovarian failure (principal) | CPT/HCPCS: 77080 ==

== ENCOUNTER 2024-09-05 08:27 | Outpatient (AMB) | payer MEDICARE, SELFPAY ==
--- OUTSIDE RECORDS SUMMARY | 2024-08-15 06:10 | XMS_ITS ---
Author Organization [facility] Address [address] [place] [address] Care Team Providers Care Can Vacuum Tester Name Role Phone Handy GATES, [place] Primary Care Provider Severo Leal Unavailable [phone] Allergies No Known Allergies Results Component Value Reference Range Notes Prothrombin Time INR Reviewed date:08/18/2024 09:06:23 PM Interpretation: Performing Lab:[facility], [address] [place] [phone] Notes/Report: Prothrombin Time 11.8 10.9-12.4 SEC INTERNATIONAL [...] 08/15/2024 Encounters Encounter Location Date Provider Diagnosis [facility] [address] [place] [address] 08/15/2024 Severo Carvalho Encounter for screening for [...] 09:20:00 AM, [address], [address], [place], [address], Progress Notes * LIZETTE SONI B:1955 (69 yo F)Acc No.[id number]:08/15/2024 Progress Notes Patient: LIZETTE ALVARENGA Provider: Manuel Carvalho MD :1955 A ge:69 Y S ex:Female Date:08/15/2024 Address:[place], [place] Pcp:Carolina Murrell MD Subjective: * Chief Complaints: * 1 . Patient presents today for fibrosis. * Medical History: D enies [place],DM,CVA,renal disease, COPD, Negative screening colonoscopy 05-18-2005, Screening [...] elastography* sched for 10/03/24 at 8:30 am [facility] Ultrasound dept 2nd floorfasting 8 hrs prior [...] elastography* sched for 10/03/24 at 8:30 am [facility] Ultrasound dept 2nd floorfasting 8 hrs prior [...] 0 08/15/2024 Generated for Vanna arevalo/Elpidio/Aparnaitting on: 09/05/2024 08:42 AM EDT
--- NOTE | 2024-09-05 08:30 | A.OFFPC_ITS ---
Vital Signs 09/05/24 08:31 Height 5 ft 2 in Weight 128 lb BMI 23.4 BP 110/68 Blood Pressure Location Lt brachial Position Sitting Respiration 16 Pulse 84 Pulse Source Pulse Oximeter Temp 98.2 F Temp Source Oral Pulse Oximetry (%) 95 Oxygen Delivery Method Room Air Intake Visit Reasons: Annual PE - see comments Intake Note: Pt is here for annual PE. Most recent mammo done 09/01/24, Colonoscopy 12/04/20 to repeat in 5 years. 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 Accompanied by: Spouse Allergies No Known Allergies Allergy (Mild, Verified 09/05/24 09:51) N/A Medication List - Last Reconciled 09/05/24 by Carolina Murrell MD albuterol sulfate 90 mcg/actuation 1 inh inhalation QID PRN cholecalciferol (vitamin D3) 25 mcg PO DAILY fluticasone propionate 50 mcg/actuation 1 spray intranasal DAILY [LSO [place] LSO or equivalenet brace Lumbar fusion surgery] tiotropium bromide 2.5 mcg/actuation (Spiriva Respimat) 2 puffs inhalation DAILY Tobacco use date assessed: 09/05/24 Fall risk assessment: No Falls in past year Last assessed Fall Risk: 09/05/24 Dental Screening Dental Screen Date: 09/05/24 Did you have a dental visit in the last 12 months?: No Did you have a dental problem in the last 6 months where you did not have access to dental care?: No Was dental information given to patient?: No HPI Annual PE - see comments HPI Details - The patient is a 69-year-old female he re today for physical exam. - She has Osteoporosis , with bone den sity scan that showed significant thinning in the left hip, while the lumbar spine and thigh were less affected. - The patient has a history of taking al endronate for five years, which was di scontinued last year. - She denies any falls and engages in re gular walking exercises, although she cannot walk as fast as before due to prior back surgery. - Osteoarthritis is present, but the pat ient does not report significant symptoms at this time. -has beginning Cataracts , currently be ing observed. - The patient has elevated liver enzymes , with no clear etiology identified, and she consumes minimal alcohol. - Preventative care measures include a m ammogram done today, with results still pending, bone density scan is up-to-date, done last year which showed presence of osteoporosis in left hip, and a screening colonoscopy scheduled for next year. [facility] Medical History (Updated 09/05/24 @ 09:57 by Carolina Murrell MD) Allergic rhinitis History of adenomatous polyp of colon Arthritis Numbness Murmur [place] (hard of hearing) Full dentures Personal history of nicotine dependence SI (sacroiliac) joint dysfunction Compression deformity of vertebra Lumbar back pain with radiculopathy affecting left lower extremity Vasomotor symptoms due to menopause Encounter for monitoring alendronate therapy COVID-19 vaccine series completed Hepatitis C COPD (chronic obstructive pulmonary disease) Tubular adenoma of colon Postmenopause Breast cancer screening by mammogram Osteoporosis Surgical History (Updated 09/05/24 @ 09:57 by Carolina Murrell MD) S/P lumbar spinal fusion Hx of blepharoplasty Hx of tubal ligation Hx of dilation and curettage H/O colonoscopy Social History Household Members: Spouse Housing: Apartment Are you a primary home care scheduler to a significant other at home: No Do you presently have visiting nurse or other home services: No Alcohol intake: former Comment: aware of trip hazards Patient Tobacco Use Status: Former Tobacco user Tobacco use type: Cigarette e-Cigarette/Vaping Use: Currently Using Second Hand Smoke Exposure: Yes Substance Use Type: Marijuana service: No Current occupational status: retired Cognitive needs: No Hearing needs: Yes Vision needs: No Questionnaire PHQ-9 Over the last 2 weeks, how often have you been bothered by any of the following problems? 1. Little interest or pleasure in doing things: not at all 2. Feeling down, depressed, or hopeless: not at all 3. Trouble falling or staying asleep, or sleeping too much: not at all 4. Feeling tired or having little energy: not at all 5. Poor appetite or overeating: not at all 6. Feeling bad about yourself - or that you are a failure or have let yourself or your family down: not at all 7. Trouble concentrating on things, such as reading the newspaper or watching television: not at all 8. Moving or speaking so slowly that other people could have noticed. Or the opposite - being so fidgety or restless that you have been moving around a lot more than usual: not at all 9. Thoughts that you would be better off or of hurting yourself in some way: not at all Total score: 0 Depression Screening Interpretation: Negative Depression Screening Done: Yes 62770 - PHQ-9 Billing: Yes Source: Developed by Drs. Severo Leos, Shruti Yeboah, Paul Reaves and colleagues, with an educational berry from [employer]. Thrive Questionnaire Date Thrive assessed: 09/05/24 I am a: Patient What is your living situation today?: I have a steady place to live Within the past 12 months, did the food you bought not last and you didn't have the money to get more?: Never true Within the past 12 months, did you worry whether your food would run out before you got money to buy more?: Never true Do you have trouble paying for medicines?: No Do you have trouble getting transportation to medical appointments?: No Do you have trouble paying your heating and electricity bill?: No Do you have trouble taking care of your child, family member or friend?: No Do you have trouble with day-to-day activities such as bathing, preparing meals, shopping, managing finances, etc.?: No Are you currently unemployed and looking for a job?: No Are you interested in more education?: No Please select the resources that you would like help with: None Currently or been in a relationship where the following occur: No concerns reported THRIVE Score: 0 AUDIT C Alcohol Use Questionnaire (AUDIT-C) 1. How often do you have a drink containing alcohol?: Never 3. How often do you have six or more drinks on one occasion?: Never Total Score: 0 BLOSSOM-7 AMB Questionnaire BLOSSOM-7 Date BLOSSOM - 7 assessed: 09/05/24 Feeling nervous, anxious, or on edge: 0 = Not at all Not being able to stop or control worryin = Not at all Worrying too much about different things: 0 = Not at all Trouble relaxin = Not at all Being so restless that it is hard to sit still: 0 = Not at all Becoming easily annoyed or irritable: 0 = Not at all Feeling afraid as if something awful might happen: 0 = Not at all Total BLOSSOM-7 score (0-4 normal; 5-9 mild; 10-14 moderate; 15-21 severe): 0 Source: Developed by Drs. Severo Leos, Shruti Yeboah, Paul Reaves and colleagues, with an educational berry from [employer]. BLOSSOM-7 Assessment Billing BLOSSOM-7 Assessment Tool: BLOSSOM-7 Assessment 71173 Review of Systems Const Denies body aches, Denies chills, Denies fatigue and Denies fever(s) Eyes Details: Has cataracts, sees Dr. Calderón Denies change in vision ENT Details: Has full dentures Reports no additional complaints Card Denies chest pain and Denies dyspnea Resp Denies cough and Denies dyspnea GI Reports no additional complaints Reports no additional complaints Musc Reports as per HPI Skin/Breast Denies rash Neuro Reports no additional complaints Psych Reports no additional complaints Endo Denies fatigue Tony/Lymph Reports no additional complaints Aller/Immun Reports no additional complaints Physical exam (Primary Care) Vital Signs: Last Vital Signs Temp 98.2 F 09/05/24 08:31 Pulse 84 09/05/24 08:31 Resp 16 09/05/24 08:31 BP 110/68 09/05/24 08:31 Pulse Ox 95 09/05/24 08:31 Oxygen Delivery Method Room Air 09/05/24 08:31 BMI result Body Mass Index 23.4 Tobacco/Smoking Status: Tobacco use Status Tobacco use date assessed 09/05/24 09/05/24 08:36 Patient Tobacco Use Status Former Tobacco user 09/05/24 08:36 Tobacco use type Cigarette 09/05/24 08:36 e-Cigarette/Vaping Use Currently Using 09/05/24 08:36 PHQ-9: PHQ-9 Score PHQ-9: Total score 0 09/05/24 09:52 Depression Screening Interpretation: Negative Thrive Assessment: Date of Thrive Assessment Date Thrive assessed 11/12/23 09/05/24 08:36 Currently or been in a relationship where the following occur: No concerns reported Const General: no acute distress and alert Nutritional Appearance: average body habitus Orientation/consciousness: patient oriented x3 HENMT Head: Yes normocephalic General nose exam: Normal external nose present Face and sinus: Yes face symmetric Mouth: oropharynx normal and moist mucous membranes Eyes General: appearance normal, both eyes and all related structures Neck Neck: Yes full ROM, Yes no lymphadenopathy and Yes supple Thyroid: Thyroid normal Resp Effort & Inspection: normal respiratory effort and able to speak in complete sentences Auscultation: clear to auscultation bilaterally Cardio Other: S1-S2 present regular rate and rhythm GI Other: Normal bowel sounds, soft, nontender, with no mass palpated Back/Spine/Pelvis Back: No back tenderness (Left sacroiliac area, straight leg raising negative bilateral) Skin General skin exam: no rashes or lesions noted Neuro General: patient oriented x3, gait normal, moves all extremities, Normal light touch and pain sensation, no focal motor deficits and CN's II-XI intact bilaterally Extrem General: Yes full ROM, Yes no pedal edema, Yes no calf tenderness and Yes normal gait Psych Appearance: grossly normal and well kempt Mental Status: mental status grossly normal Speech and movement: Normal speech and movement present Affect: normal affect Results Reviewed Results Reviewed: RUN: 09/10/24 [id number] PAGE 1 [facility] [address] [place] [id number] Lumber Racker: Nigel Barajas M.D. Specimen Inquiry Name: Mag Lima Age/Sex: 69/F [facility] 1955 [id number] Unit#: [id number] Attend Dr: Severo Carvalho MD Re08/16/24 Status: DEP [facility]: SPEC : [id number] REYMUNDO: 08/16/24 STATUS: COMP REQ : [id number] RECD: 08/16/[address]: Severo Carvalho MD COMP: 08/16/24 ENTERED: 08/16/[address]: Carolina Murrell MD ORDERED: CBC Auto Diff Test Result Flag Reference WBC 6.9 4.8-10.8 X10*3/uL RBC 4.05 L 4.20-5.50 X10*6/uL HGB 12.4 12.0-16.0 g/dl HCT 37.4 37.0-47.0 % MCV 92.3 80.0-98.0 fL MCH 30.6 27.0-33.0 pg MCHC 33.2 31.0-35.0 g/dl RDW 13.1 11.0-16.0 % PLT 270 160-400 X10*3/uL MPV 8.4 L 9.4-12.3 fL Neut Pct Auto 52.6 45-73 % ImGran Pct Auto 0.6 H 0.0-0.4 % Lymp Pct Auto 34.8 20-40 % Rowan Pct Auto 8.6 2-11 % Eos Pct Auto 2.5 0-4 % Baso Pct Auto 0.9 0-2 % NRBC Pct Auto 0.0 0.0-0.2 /100WBC ANC Neut Abs # 3.6 2.0-8.3 x10*3/uL ImGran Abs Auto 0.04 H 0.00-0.03 X10*3/uL Lymph Abs Auto 2.4 1.2-4.9 X10*3/uL Rowan Abs Auto 0.6 0.1-1.2 X10*3/uL Eos Abs Auto 0.2 0.0-0.4 X10*3/uL Baso Abs Auto 0.1 0.0-0.2 X10*3/uL NRBC Abs Auto 0.000 0.0-0.012 X10*3/uL Coding Level of Care Code Est Pt Prev Care >65y(71897) Diagnoses Age-related osteoporosis without current pathological fracture M81.0 Osteoporosis type: age-related Presence of current pathological fracture: without current pathological fracture History of adenomatous polyp of colon Z86.0101 Allergic rhinitis J30.9 COPD (chronic obstructive pulmonary disease) J44.9 Annual visit for general adult medical examination with abnormal findings Z00.01 Additional Codes BLOSSOM-7 Assessment Billing - BLOSSOM-7 Assessment Tool: BLOSSOM-7 Assessment 30170 ([id number]) PHQ-9 - 39394 - PHQ-9 Billing: Yes ([id number]) Assessment & Plan Assessment & Plan (1) Osteoporosis: Code(s): M81.0 - Age-related osteoporosis without current pathological fracture Category: Medical Qualifiers: Osteoporosis type: age-related Presence of current pathological fracture: without current pathological fracture Qualified Code(s): M81.0 - Age- related osteoporosis without current pathological fracture (2) History of adenomatous polyp of colon: Code(s): Z86.0101 - Personal history of adenomatous and serrated colon polyps Category: Medical (3) Allergic rhinitis: Code(s): J30.9 - Allergic rhinitis, unspecified Category: Medical (4) COPD (chronic obstructive pulmonary disease): Code(s): J44.9 - Chronic obstructive pulmonary disease, unspecified Category: Medical (5) Annual visit for general adult medical examination with abnormal findings: Code(s): Z00.01 - Encounter for general adult medical examination with abnormal findings Plan The patient will begin treatment for osteoporosis with alendronate, taken once a week in the morning with water, ensuring to remain upright for one hour post- ingestion to prevent esophageal irritation. A referral to Dr. Guerra, a specialist in osteoporosis, will be arranged to explore further treatment options, including potential infusions or injections. The patient will continue regular walking exercises and monitor for any falls or changes in symptoms. Follow-up blood tests will be conducted to monitor liver enzyme levels and assess cholesterol and vitamin D status. Preventative care measures include scheduling a mammogram, bone density scan, and colonoscopy, with the latter planned for next year. Patient was informed and verbally consented to the use of an ambient scribe for clinic note documentation during this visit. Orders: Orders Glucose Fasting 09/06/24 M81.0 - Age-related osteoporosis without current pathological fracture, Z13.220 - Encounter for screening for lipoid disorders, Z78.0 - Asymptomatic menopausal state Lipid Panel 09/06/24 M81.0 - Age-related osteoporosis without current pathological fracture, Z13.220 - Encounter for screening for lipoid disorders, Z78.0 - Asymptomatic menopausal state Vitamin D 25-OH Total 09/06/24 M81.0 - Age-related osteoporosis without current pathological fracture, Z13.220 - Encounter for screening for lipoid disorders, Z78.0 - Asymptomatic menopausal state Referrals Endocrinology Referral M81.0 - Age-related osteoporosis without current pathological fracture Medications: Refilled albuterol sulfate 90 mcg/actuation 1 inh inhalation QID PRN 8.5 grams 1RF shortness of breath or wheezing tiotropium bromide 2.5 mcg/actuation (Spiriva Respimat) 2 puffs inhalation DAILY 4 grams 4RF
[2024-09-05 08:31] VITALS: BP 110/68; PULSE 84; RESP 16; TEMP 36.8; O2SAT 95; BMI 23.4
== END 2024-09-05 10:55 | disposition home or self-care (01) ==
LOC: HO.HMCC 08:28
PROVIDERS: PCP Internal Medicine; Visit Provider Internal Medicine
DX: Z00.01 Encounter for general adult medical examination with abnormal findings (principal); J44.9 Chronic obstructive pulmonary disease, unspecified; M81.0 Age-related osteoporosis without current pathological fracture; Z86.0101 Personal history of adenomatous and serrated colon polyps; J30.9 Allergic rhinitis, unspecified

== ENCOUNTER → 2024-09-05 08:27 | Outpatient (BNVA) | payer MEDICARE, SELFPAY | PROVIDERS: PCP Internal Medicine; Visit Provider Internal Medicine | DX: Z00.01 Encounter for general adult medical examination with abnormal findings (principal); M81.0 Age-related osteoporosis without current pathological fracture; J30.9 Allergic rhinitis, unspecified; J44.9 Chronic obstructive pulmonary disease, unspecified; Z86.0101 Personal history of adenomatous and serrated colon polyps | CPT/HCPCS: 96127; 99397 ==

== ENCOUNTER 2024-09-06 06:37 | Outpatient (REF) | payer MEDICARE, SELFPAY ==
[2024-09-06 10:58] LABS: Cholesterol 187 mg/dL (<200); HDL Cholesterol 44 mg/dL (>40); Triglycerides 110 mg/dL (<150)
== END 2024-09-06 06:38 | disposition home or self-care (01) ==
LOC: HO.HMGCLDS 06:37
PROVIDERS: PCP Internal Medicine; Visit Provider Internal Medicine
DX: Z13.220 Encounter for screening for lipoid disorders (principal); M81.0 Age-related osteoporosis without current pathological fracture; Z78.0 Asymptomatic menopausal state
CPT/HCPCS: 36415; 80061; 82306; 82947

== ENCOUNTER 2024-10-03 08:14 | Outpatient (REF) | payer MEDICARE, SELFPAY ==
--- NOTE | ~2024-10-03 | US_ITS ---
EXAMINATION: US ABDOMEN COMPLETE WITH LIVER ELASTOGRAPHY HISTORY: HISTORY OF HEPATITIS C, LIVER FIBROSIS TECHNIQUE: Real-time grayscale ultrasound imaging of the abdomen was performed and images were reviewed. COMPARISON: Comparison is made with the prior examination dated 05/21/2023. FINDINGS: Liver: The right lobe of the liver measures 13.1 cm in size. The left lobe of the liver measures 8.3 cm in size. The liver demonstrates increased echotexture, consistent with steatosis. There is 6 mm cyst in the right and left lobes. No intrahepatic biliary ductal dilatation is identified. There is normal hepatopedal flow in the portal vein. Ultrasound elastography of the liver was performed with 10 separate measurements of the liver parenchyma with the patient in the supine position. Measurements were obtained approximately 2 cm below Alyson's capsule and perpendicular to the capsule. The median shear wave velocity is 1.19 m/s (previously 1.92 m/s). The interquartile range/median (IQR/median) is 0.30. Gallbladder and biliary tree: The gallbladder is surgically absent. A fluid containing structure in the luisa hepatis may represent fluid in the duodenum. The common bile duct measures 8 mm in diameter. Kidneys: The right kidney measures 10.2 cm in length. The left kidney measures 9.4 cm in length. The kidneys are unremarkable, without evidence of masses, hydronephrosis, or calculi. Pancreas: The pancreatic head, neck, and body are unremarkable. The pancreatic tail is obscured by bowel gas. Spleen: The spleen is normal in size and contour, measuring 11.4 cm in length. Abdominal aorta and inferior vena cava: The visualized portions of the abdominal aorta and inferior vena cava are normal in caliber. There is no free fluid in the abdomen. US/US abdomen comp w elastography IMPRESSION: Hepatic steatosis. The median shear wave velocity in the liver is 1.19 m/s, corresponding to a median liver stiffness of 4.3 kPa. The IQR/median value is 0.30. This is indicative of a quality data set. Findings are indicative of a normal elastography value with a low likelihood of severe fibrosis or cirrhosis. REFERENCE: Society of Radiologists in Ultrasound Liver Stiffness Thresholds (2020): LIVER STIFFNESS THRESHOLDS: *Shear wave velocity less than 1.3 m/s (Liver Stiffness equal or less than 5 kPa): High probability of being normal. *Shear wave velocity less than 1.7 m/s (Liver Stiffness less than 9 kPa): In the absence of other known clinical signs, rules out compensated advanced chronic liver disease. *Shear wave velocity between 1.7-2.1 m/s (Liver Stiffness 9-13 kPa): Suggestive of compensated advanced chronic liver disease but need further test for confirmation. *Shear wave velocity between 2.1-2.4 m/s (Liver Stiffness 13-17 kPa): Rules in compensated advanced chronic liver disease. *Shear wave velocity greater than 2.4 m/s (Liver Stiffness over 17 kPa): Suggestive of clinically significant portal hypertension. QUALITY OF DATA SET: *IQR/Median value equal or less than 0.30 implies a quality data set. *IQR/Median value over 0.30 implies a poor quality data set. SIGNIFICANT CHANGE FROM PRIOR EXAM: Significant change if liver stiffness measurement is 10% or greater from prior exam. OTHER CONSIDERATIONS: The stage of liver fibrosis may be overestimated in the setting of acute hepatitis, liver inflammation, elevated liver function tests, hepatic vascular congestion, obstructive cholestasis, non-fasting state, and infiltrative diseases such as amyloidosis and lymphoma. In some patients with NAFLD, the liver stiffness thresholds for compensated advanced chronic liver disease may be lower. In causes other than viral hepatitis and NAFLD, liver stiffness thresholds are not well established. Electronically signed by: Severo Laura MD 10/03/2024 09:43 AM EDT
--- OUTSIDE RECORDS SUMMARY | 2024-10-03 08:49 | XMS_ITS | Patient Health Record ---
Author Organization [facility] Address [address] [place] [address] Care Team Providers Care Residential Plumber Name Role Phone Handy GATES, [place] Primary Care Provider Severo Leal Unavailable [phone] Allergies No Known Allergies Results Component Value Reference Range Notes Prothrombin Time INR Reviewed date:08/18/2024 09:06:23 PM Interpretation: Performing Lab:[facility], [address] [place] [phone] Notes/Report: Prothrombin Time 11.8 10.9-12.4 [employer] [...] mechanical prosthetic heart valves: 2.5 - 3.5 Complete Blood Count Auto Di ff Reviewed date:08/18/2024 09:06:08 PM Interpretation: Performing Lab:[address] [phone] Notes/Report: White Blood Count 6.9 4.8-10.8 X10*3/uL Red Blood Count 4.05 4.20-5.50 X10*6/uL Hemoglobin 12.4 12.0-16.0 g/dl Hematocrit 37.4 37.0-47.0 % Mean Corpuscular Volume 92.3 80.0-98.0 fL Mean Corpuscular Hemoglobin 30.6 27.0-33.0 pg Mean Corpuscular HGB Conc 33.2 31.0-35.0 g/dl Red Cell Distribution Width 13.1 11.0-16.0 % Platelet Count 270 160-400 X10*3/uL Mean Platelet Volume 8.4 9.4-12.3 fL Neutrophils Percent Auto 52.6 45-73 % Imm Gran Pct Auto 0.6 0.0-0.4 % Lymphocytes Percent Auto 34.8 20-40 % Monocytes Percent Auto 8.6 2-11 % Eosinophils Percent Auto 2.5 0-4 % Basophils Percent Auto 0.9 0-2 % NRBC Pct Auto 0.0 0.0-0.2 /100WBC Neutrophils Absolute Auto 3.6 2.0-8.3 x10*3/u L Imm Gran Abs Auto 0.04 0.00-0.03 X10*3/uL Lymphocytes Absolute Auto 2.4 1.2-4.9 X10*3/u L Monocytes Absolute Auto 0.6 0.1-1.2 X10*3/uL Eosinophils Absolute Auto 0.2 0.0-0.4 X10*3/u L Basophils Absolute Auto 0.1 0.0-0.2 X10*3/uL NRBC Abs Auto 0.000 0.0-0.012 X10*3/uL Liver Panel Reviewed date:08/18/2024 09:05:53 PM Interpretation: Performing Lab:[address] [phone] Notes/Report: Bilirubin Total 0.3 0.0-1.0 mg/dL Bilirubin Direct 0.1 0.0-0.5 mg/dL Aspartate Amino Transferase 44 5-31 U/L Alanine Aminotransferase 39 0-31 U/L Total Protein 6.9 6.5-8.0 g/dL Albumin Level 4.3 3.5-5.0 g/dL Alkaline Phosphatase 69 39-117 U/L Alpha Fetoprotein Reviewed date:08/27/2024 12:50:44 PM Interpretation: Performing Lab:[address] [phone] Notes/Report: Alpha Fetoprotein 3.1 Reference Range: <6.1 The use of AFP as a tumor marker in females is not recommended. This test was performed using the Chuckie Ha chemiluminescent method. Values obtained from different assay methods cannot be used interchangeably. AFP levels, regardless of value, should not be interpreted as absolute evidence of the presence or absence of disease. THIS TEST WAS PERFORMED AT: [facility] [address] [place] [phone] CHICO LU MD Liver Fibrosis Pnl Reviewed date:08/27/2024 12:50:27 PM Interpretation: Performing Lab:[facility], [address] [place] [phone] Notes/Report: Liver Fibrosis Score 0.25 Liver Fibrosis Stage F0-F1 Liver Fibrosis Interpretation [...] F4 (severe fibrosis) Nec Inflam Act Score 0.10 Nec Inflam Act Grade A0 Nec Inflam [...] a>0.62 and a<=1.00 : A3 (severe activity) XJK-[id number]-4-Macroglobulin 326 106-279 mg/dL FIB-Haptoglobin 159 43-212 mg/dL FIB-Apolipoprotein A1 159 101-198 mg/dL FIB-Total Bilirubin 0.3 0.2-1.2 mg/dL FIB-GGT 12 3-65 U/L FIB-ALT 24 6-29 U/L Reference ID [id number] Footnote SEE NOTE The reliability of results is dependent on compliance with the preanalytical and analytical conditions recommended by [employer]. The tests have to be deferred for: [...] The performance characteristics have been determined by [facility]. It has not been cleared or approved by the U.S. Food and Drug Administration. Performance characteristics refer to the analytical performance of the test. [employer], the associated logo, [employer] and all associated [employer] hooks are the registered trademarks of [employer]. All third republican hooks - (R) and (TM) - are the property of their respective owners. (C) [id number] [employer]. All rights reserved. THIS TEST WAS PERFORMED AT: [employer] [facility] [address] [place] [address] JOSHUA BEAVER MD,PHD,GITA Reason For Referral No Information Medications Medication [...] Base) MCG/ACT Inhalation for 50 Activ e Immunizations Vaccine Route Administration Date Status Comme [...] Problem Status W/U Status Risk Notes Problem 797474406 Encounter for screening for malignant neoplasm of colon (Z12.11) Active confirmed Problem 783945316 History of adenomatous polyp of colon (Z86.010) Active confirmed Problem Screening for malignant neoplasm of rectum (531984121) Encounter for screening for malignant neoplasm of rectum (Z12.12) Active confirmed Problem 15629233820945 History of hepatitis C (Z86.19) Active confirmed Problem 58818109 Liver fibrosis (K74.0) Active confirmed Problem Diverticulosis of colon (503810486) Diverticulosis of colon (K57.30) Active confirmed Problem 53728644 Liver fibrosis (K74.00) Active confirmed Vital Signs Blood pressure diastolic 77 mm Hg 08/15/2024 Height 62 in 08/15/2024 Blood pressure systolic 111 mm Hg 08/15/2024 Weight 126 lbs 08/15/2024 BMI 23.04 kg/m2 08/15/2024 Encounters Encounter Location Date Provider Diagnosis [address] [place] [phone] 08/15/2024 Severo Carvalho Encounter for screening for malignant neoplasm of colon Z12.11 ; Liver fibrosis K74.00 ; History of hepatitis C Z86.19 and History of adenomatous polyp of colon Z86.010 [facility] [address] [place] [address] 04/20/2024 Severo Carvalho Assessments Encounter Date Diagnosis (ICD Code) Assessment Notes Treatment Notes Treatment Clinical Notes Section Notes 08/15/2024 Encounter for screening for malignant neoplasm of colon (ICD-10 - Z12.11) Overall Lizette appears well and does not have any symptoms nor show any signs of progressive liver disease. She will undergo her yearly abdominal ultrasound along with the below laboratories, including an alpha-fetoprote in level. We did review the importance of this in regard to the somewhat increased risk of liver cancer in patients who have had chronic hepatitis C and some liver scarring. We did discuss that she will be due for a follow-up colonoscopy for screening toward the latter part of 2025. I will plan to see her in 1 year for a follow-up visit in regard to the underlying liver disease and we will then schedule a colonoscopy for her at that time. I did advise her to contact me prior to that if she has any problems or questions I can be of assistance with. Lizette and her were comfortable with this plan. Thank you again for allowing me to participate in Lizette's care. I shall continue to keep you advised of her progress. 08/15/2024 Liver fibrosis (ICD-10 - K74.00) Overall Lizette appears well and does not have any symptoms nor show any signs of progressive liver disease. She will undergo her yearly abdominal ultrasound along with the below laboratories, including an alpha-fetoprote in level. We did review the importance of this in regard to the somewhat increased risk of liver cancer in patients who have had chronic hepatitis C and some liver scarring. We did discuss that she will be due for a follow-up colonoscopy for screening toward the latter part of 2025. I will plan to see her in 1 year for a follow-up visit in regard to the underlying liver disease and we will then schedule a colonoscopy for her at that time. I did advise her to contact me prior to that if she has any problems or questions I can be of assistance with. Lizette and her were comfortable with this plan. Thank you again for allowing me to participate in Lizette's care. I shall continue to keep you advised of her progress. 08/15/2024 History of hepatitis C (ICD-10 - Z86.19) Overall Lizette appears well and does not have any symptoms nor show any signs of progressive liver disease. She will undergo her yearly abdominal ultrasound along with the below laboratories, including an alpha-fetoprote in level. We did review the importance of this in regard to the somewhat increased risk of liver cancer in patients who have had chronic hepatitis C and some liver scarring. We did discuss that she will be due for a follow-up colonoscopy for screening toward the latter part of 2025. I will plan to see her in 1 year for a follow-up visit in regard to the underlying liver disease and we will then schedule a colonoscopy for her at that time. I did advise her to contact me prior to that if she has any problems or questions I can be of assistance with. Lizette and her were comfortable with this plan. Thank you again for allowing me to participate in Lizette's care. I shall continue to keep you advised of her progress. 08/15/2024 History of adenomatous polyp of colon (ICD-10 - Z86.010) Need a colonoscopy end of 2025 Overall Lizette appears well and does not have any symptoms nor show any signs of progressive liver disease. She will undergo her yearly abdominal ultrasound along with the below laboratories, including an alpha-fetoprote in level. We did review the importance of this in regard to the somewhat increased risk of liver cancer in patients who have had chronic hepatitis C and some liver scarring. We did discuss that she will be due for a follow-up colonoscopy for screening toward the latter part of 2025. I will plan to see her in 1 year for a follow-up visit in regard to the underlying liver disease and we will then schedule a colonoscopy for her at that time. I did advise her to contact me prior to that if she has any problems or questions I can be of assistance with. Lizette and her were comfortable with this plan. Thank you again for allowing me to participate in Lizette's care. I shall continue to keep you advised of her progress. Plan Of Treatment Pending Test Test Name Order Date LIVER PROFILE 08/15/2024 LIVER PROFILE 11/18/2017 LIVER PROFILE 03/10/2022 LIVER PROFILE 05/05/2023 CBC w DIFF 05/05/2023 CBC w DIFF 08/15/2024 CBC w DIFF 11/18/2017 CBC w DIFF 03/10/2022 PROTHROMBIN TIME (PT, INR) 10/30/2020 PROTHROMBIN TIME (PT, INR) 11/18/2017 PROTHROMBIN TIME (PT, INR) 03/10/2022 ALPHA-FETOPROTEIN,TUMOR MARKER 3 ALPHA-FETOPROTEIN,TUMOR MARKER 4 ALPHA-FETOPROTEIN,TUMOR MARKER 5 ALPHA-FETOPROTEIN,TUMOR MARKER 8 US ABD 10/30/2020 HCV LIVER FIBROSIS, FIBRO TEST 3 HCV LIVER FIBROSIS, FIBRO TEST 5 US ABDOMEN COMP WITH ELASTOGRAPHY 2022 Prothrombin Time INR 05/05/2023 Liver Fibrosis Pnl 05/05/2023 US abdomen comp w elastography 5 US abdomen comp w elastography 4 Future Test Test Name Order Date COLONOSCOPY 04/22/2016 COLONOSCOPY 01/19/2019 COLONOSCOPY 10/30/2020 Next Appt Details Provider Name:Severo Carvalho , 08/16/2025 09:20:00 AM, [address] [facility], [address], [place], [address], Insurance Providers Payer Name Payer Address Payer Phone Subscriber Number Group Number Insured Name Patient Relationship to Insured Coverage Start Date Coverage End Date [facility] [address] [address] [place] [phone] [id number] LIZETTE SONI Self - patient is the insured MEDICAID OF [facility] [address] [place] [address] [id number] LIZETTE SONI Self - patient is the insured Medical (General) History Medical History History ICD Code Denies NC,DM,CVA,renal disease COPD Negative screening colonoscopy --2005 Screening colonoscopy 06/2016 - flat > 1cm adenoma removed from ascending colon Osteoporosis History of chronic hepatitis C treated successfully in 2001 and 2002 with pegylated interferon and ribavirin; a liver biopsy in 2001 revealed a grade 2-3/4 hepatitis and and stage II/IV fibrosis. She had a negative hepatitis C viral load in 2017 Colonoscopy in 11/2020 with removal of 2 tubular adenomas Surgical History Surgery Date(Month/Year) Back surgery Tubal ligation at age 16 D&C
== END 2024-10-03 08:15 | disposition home or self-care (01) ==
LOC: HO.US 08:14
PROVIDERS: PCP Internal Medicine; Visit Provider Internal Medicine
DX: K74.00 Hepatic fibrosis, unspecified (principal); Z86.19 Personal history of other infectious and parasitic diseases
CPT/HCPCS: 76700; 76981

== ENCOUNTER → 2024-10-03 08:17 | Outpatient (BNV) | payer MEDICARE, SELFPAY | PROVIDERS: PCP Internal Medicine; Visit Provider Radiology Diagnostic Radiology | DX: K76.0 Fatty (change of) liver, not elsewhere classified (principal) | CPT/HCPCS: 76700 ==

== ENCOUNTER 2024-10-31 07:46 | Outpatient (AMB) | payer MEDICARE, SELFPAY ==
--- OUTSIDE RECORDS SUMMARY | 2024-05-04 05:00 | XMS_ITS ---
Author Organization [facility] Address [address] [place] [address] Care Team Providers Care Chief Security Officer Name Role Phone Carolina Murrell MD Primary Care Provider Severo Leal [phone] REASON FOR VISIT Patient presents today for fibrosis Encounters Encounter Location Date Provider Diagnosis [facility] [address] [place] [address] 05/04/2024 Severo Carvalho Plan Of Treatment Next Appt Details Provider Name:Severo Carvalho , 08/16/2025 09:20:00 AM, [address], [address], [place], [address], Progress Notes * LIZETTE SONI GDO B:1955 (69 yo F)Acc No.[id number]:05/04/2024 Progress Notes Patient: Denzel LIZETTE DOMÍNGUEZ Provider: Manuel Carvalho MD :1955 A ge:68 Y S ex:Female Date:05/04/2024 Address:[place] Pcp:Carolina Murrell MD Subjective: * Chief Complaints: [...] 0 05/04/2024 Generated for Vanna arevalo/Elpidio/Mere on: 0 10/31/2024 07:48 AM EDT
--- OUTSIDE RECORDS SUMMARY | 2024-10-31 07:49 | XMS_ITS | Patient Health Record ---
Author Organization [facility] Address [address] [place] [address] Care Team Providers Care Case Management Rn Name Role Phone Handy GATES, [place] Primary Care Provider Severo Leal Unavailable [phone] Allergies No Known Allergies Results Component Value Reference Range Notes Prothrombin Time INR Reviewed date:08/18/2024 09:06:23 PM Interpretation: Performing Lab:[facility], [address] [place] [place] [phone] Notes/Report: Prothrombin Time 11.8 10.9-12.4 SEC INTERNATIONAL [...] ff Reviewed date:08/18/2024 09:06:08 PM Interpretation: Performing Lab:[address] [phone] Notes/Report: White Blood Count 6.9 4.8-10.8 X10*3/uL [...] Panel Reviewed date:08/18/2024 09:05:53 PM Interpretation: Performing Lab:[address] [phone] Notes/Report: Bilirubin Total 0.3 0.0-1.0 mg/dL Bilirubin Direct 0.1 0.0-0.5 mg/dL Aspartate Amino Transferase 44 5-31 U/L Alanine Aminotransferase 39 0-31 U/L Total Protein 6.9 6.5-8.0 g/dL Albumin Level 4.3 3.5-5.0 g/dL Alkaline Phosphatase 69 39-117 U/L Alpha Fetoprotein Reviewed date:08/27/2024 12:50:44 PM Interpretation: Performing Lab:[address] [phone] Notes/Report: Alpha Fetoprotein 3.1 Reference Range: <6.1 [...] of disease. THIS TEST WAS PERFORMED AT: [facility] [address] [place] [phone] CHICO LU MD Liver Fibrosis Pnl Reviewed date:08/27/2024 12:50:27 PM Interpretation: Performing Lab:[facility], [address] [place] [phone] Notes/Report: Liver Fibrosis Score 0.25 Liver Fibrosis [...] a>0.62 and a<=1.00 : A3 (severe activity) XSZ-Qodwg-4-Macroglobulin 326 106-279 mg/dL FIB-Haptoglobin 159 43-212 mg/dL FIB-Apolipoprotein A1 159 101-198 mg/dL FIB-Total Bilirubin 0.3 0.2-1.2 mg/dL FIB-GGT 12 3-65 U/L FIB-ALT 24 6-29 U/L Reference ID [id number] Footnote SEE NOTE The reliability of results [...] The performance characteristics have been determined by [facility]. It has not been cleared or approved by the U.S. Food and Drug Administration. Performance characteristics refer to the analytical performance of the test. [employer], [employer], the associated logo, [employer] and all associated [employer] hooks are the registered trademarks of [employer]. All third libertarian hooks - (R) and (TM) - are the property of their respective owners. (C) 4711-9312 [employer]. All rights reserved. THIS TEST WAS PERFORMED AT: [employer] [place] [address] [place] [address] JOSHUA BEAVER MD,PHD,GITA US abdomen comp w elastograp hy (Not yet reviewed by provider) Interpretation: Performing Lab: Notes/Report: [address] [address] Ultrasound Report Signed Patient: Lizette Soni MR#: [id number] : 1955 Acct:[id number] Age/Sex: 69 / F ADM Date: 10/03/24 Loc: HO.US Attending Dr: Severo Carvalho MD Ordering Physician: Severo Carvalho MD Date of Service: 10/03/24 Procedure(s): US abdomen comp w elastography Accession Number(s): [id number] cc: Carolina Murrell MD; Severo Carvalho MD EXAMINATION: US ABDOMEN COMPLETE WITH LIVER ELASTOGRAPHY HISTORY: HISTORY OF HEPATITIS C, LIVER FIBROSIS TECHNIQUE: Real-time grayscale ultrasound imaging of the abdomen was performed and images were reviewed. COMPARISON: Comparison is made with the prior examination dated 05/21/2023. FINDINGS: Liver: The right lobe of the liver measures 13.1 cm in size. The left lobe of the liver measures 8.3 cm in size. The liver demonstrates increased echotexture, consistent with steatosis. There is 6 mm cyst in the right and left lobes. No intrahepatic biliary ductal dilatation is identified. There is normal hepatopedal flow in the portal vein. Ultrasound elastography of the liver was performed with 10 separate measurements of the liver parenchyma with the patient in the supine position. Measurements were obtained approximately 2 cm below Alyson's capsule and perpendicular to the capsule. The median shear wave velocity is 1.19 m/s (previously 1.92 m/s). The interquartile range/median (IQR/median) is 0.30. Gallbladder and biliary tree: The gallbladder is surgically absent. A fluid containing structure in the luisa hepatis may represent fluid in the duodenum. The common bile duct measures 8 mm in diameter. Kidneys: The right kidney measures 10.2 cm in length. The left kidney measures 9.4 cm in length. The kidneys are unremarkable, without evidence of masses, hydronephrosis, or calculi. Pancreas: The pancreatic head, neck, and body are unremarkable. The pancreatic tail is obscured by bowel gas. Spleen: The spleen is normal in size and contour, measuring 11.4 cm in length. Abdominal aorta and inferior vena cava: The visualized portions of the abdominal aorta and inferior vena cava are normal in caliber. There is no free fluid in the abdomen. US/US abdomen comp w elastography IMPRESSION: Hepatic steatosis. The median shear wave velocity in the liver is 1.19 m/s, corresponding to a median liver stiffness of 4.3 kPa. The IQR/median value is 0.30. This is indicative of a quality data set. Findings are indicative of a normal elastography value with a low likelihood of severe fibrosis or cirrhosis. REFERENCE: Society of Radiologists in Ultrasound Liver Stiffness Thresholds (2019): LIVER STIFFNESS THRESHOLDS: *Shear wave velocity less than 1.3 m/s (Liver Stiffness equal or less than 5 kPa): High probability of being normal. *Shear wave velocity less than 1.7 m/s (Liver Stiffness less than 9 kPa): In the absence of other known clinical signs, rules out compensated advanced chronic liver disease. *Shear wave velocity between 1.7-2.1 m/s (Liver Stiffness 9-13 kPa): Suggestive of compensated advanced chronic liver disease but need further test for confirmation. *Shear wave velocity between 2.1-2.4 m/s (Liver Stiffness 13-17 kPa): Rules in compensated advanced chronic liver disease. *Shear wave velocity greater than 2.4 m/s (Liver Stiffness over 17 kPa): Suggestive of clinically significant portal hypertension. QUALITY OF DATA SET: *IQR/Median value equal or less than 0.30 implies a quality data set. *IQR/Median value over 0.30 implies a poor quality data set. SIGNIFICANT [...] liver stiffness thresholds are not well established. 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: Reason For Referral No Information Medications Medication [...] Problem Status W/U Status Risk Notes Problem 308223334 Encounter for screening for malignant neoplasm of colon (Z12.11) Active confirmed Problem 779506076 History of adenomatous polyp of colon (Z86.010) Active confirmed Problem Screening for malignant neoplasm of rectum (547166719) Encounter for screening for malignant neoplasm of rectum (Z12.12) Active confirmed Problem 19547857132318 History of hepatitis C (Z86.19) Active confirmed Problem 76949641 Liver fibrosis (K74.0) Active confirmed Problem Diverticulosis of colon (499502496) Diverticulosis of colon (K57.30) Active confirmed Problem 14126871 Liver fibrosis (K74.00) Active confirmed Vital Signs Blood pressure diastolic 77 mm Hg 08/15/2024 Height 62 in 08/15/2024 Blood pressure systolic 111 mm Hg 08/15/2024 Weight 126 lbs 08/15/2024 BMI 23.04 kg/m2 08/15/2024 Encounters Encounter Location Date Provider Diagnosis [facility] [address] [place] [address] 08/15/2024 Severo Carvalho Encounter for screening for malignant neoplasm of colon Z12.11 ; Liver fibrosis K74.00 ; History of hepatitis C Z86.19 and History of adenomatous polyp of colon Z86.010 [facility] [address] [facility] [address] [place] [phone] 04/20/2024 Severo Carvalho Assessments Encounter Date Diagnosis [...] Test Name Order Date LIVER PROFILE 05/05/2023 LIVER PROFILE 08/15/2024 LIVER PROFILE 11/18/2017 LIVER PROFILE 03/10/2022 CBC w DIFF 05/05/2023 CBC w DIFF 08/15/2024 CBC w DIFF 11/18/2017 CBC w DIFF 03/10/2022 PROTHROMBIN TIME (PT, INR) 03/10/2022 PROTHROMBIN TIME (PT, INR) 10/30/2020 PROTHROMBIN TIME (PT, INR) 11/18/2017 ALPHA-FETOPROTEIN,TUMOR MARKER 8 ALPHA-FETOPROTEIN,TUMOR MARKER 3 ALPHA-FETOPROTEIN,TUMOR MARKER 4 ALPHA-FETOPROTEIN,TUMOR MARKER 5 US ABD 10/30/2020 HCV LIVER FIBROSIS, FIBRO TEST 3 HCV LIVER FIBROSIS, FIBRO TEST 5 US ABDOMEN COMP WITH ELASTOGRAPHY 2022 Prothrombin Time INR 05/05/2023 Liver Fibrosis Pnl 05/05/2023 US abdomen comp w elastography 5 US abdomen comp w elastography 4 US abdomen comp w elastography 5 Future Test Test Name Order Date COLONOSCOPY 04/22/2016 COLONOSCOPY 01/19/2019 COLONOSCOPY 10/30/2020 Next Appt Details Provider Name:Severo Carvalho , 08/16/2025 09:20:00 AM, [address] [facility], [address], [place], [address], Insurance Providers Payer Name Payer Address Payer Phone Subscriber Number Group Number Insured Name Patient Relationship to Insured Coverage Start Date Coverage End Date [facility] [address] [address] [place] [address] [id number] LIZETTE SONI Self - patient is the insured MEDICAID OF [facility] [address] [place] [address] [id number] LIZETTE SONI Self - patient is the insured Medical (General) History Medical History History ICD Code Denies LA,DM,CVA,renal disease COPD Negative screening colonoscopy --2005 Screening [...]
--- NOTE | 2024-10-31 07:50 | MHC.OFFVIS ---
Vital Signs 10/31/24 07:52 Height 5 ft 2.44 in Weight 130 lb 11.746 oz BMI 23.6 BP 92/60 Blood Pressure Location Rt brachial Position Sitting Pulse 94 Pulse Source Pulse Oximeter Pulse Oximetry (%) 96 Oxygen Delivery Method Room Air Intake Visit Reasons: Age-related osteoporosis without current pathologi Intake Note: New patient internally referred by PCP for Age-related Osteoporosis, [place] [facility] [place] Toddler Caregiver Required: No Accompanied by: Spouse Allergies No Known Allergies Allergy (Mild, Verified 10/31/24 07:53) N/A Medication List - Last Reconciled 10/31/24 by Severo Guerra MD albuterol sulfate 90 mcg/actuation 1 inh inhalation QID PRN cholecalciferol (vitamin D3) 25 mcg PO DAILY fluticasone propionate 50 mcg/actuation 1 spray intranasal DAILY [LSO Medina LSO or equivalenet brace Lumbar fusion surgery] tiotropium bromide 2.5 mcg/actuation (Spiriva Respimat) 2 puffs inhalation DAILY HPI Comments Details: The patient is a 69-year-old female presenting with osteoporosis management. The patient has been aware of her osteoporosis diagnosis for approximately 10 years. She was previously treated with alendronate for five years, from 2018 to 2023, but discontinued due to perceived lack of efficacy. She reports no adverse effects from the medication and has not experienced any fractures. The patient underwent back surgery, although no specific details were provided regarding the surgery. She denies any history of hip, spine, or wrist fractures. The patient has been advised to maintain a dietary intake of 1200 mg of calcium daily, primarily through dietary sources such as milk, cereal, and cheese. She does not currently take calcium supplements but has been taking vitamin D3 supplementation. The patient engages in regular physical activity, including daily walking and using a pedal medical grade shoemaker every other day. She has resumed daily walking following her back surgery. The patient experienced menopause in her 40s and has no history of kidney stones. There is a possible family history of osteoporosis, as her mother may have had the condition. First diagnosed in 10 yrs ago . Received treatment in the past with alendronate , from 2018 to 2023. Tolerated treatment well without complication. - Alendronate: Taken for osteoporosis management from 2018 to 2023, discontinued due to perceived lack of efficacy. - Vitamin D3: Currently taken for bone health. No history of pathologic fracture or ONJ. Has several servings of dietary calcium per day in the form of broccoli, cheese, yogurt . Not Takes Calcium supplement Takes 1000 IU of Vitamin D daily. Denies ever using PPI, anticoagulant, antiepileptic or glucocorticoid medication. Does weight bearing exercise 4 days per week in the form of pedaling and walking . The patient engages in regular physical activity, including daily walking and using a pedal medical grade shoemaker every other day. She has resumed daily walking following her back surgery. 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 family history of Osteoporosis or hip fracture in mother . UTD on dental cleanings and sees dentist every 6 months has full dentures . No planned upcoming dental work or extractions. Ex tobacco use . Not heavy ETOH use DXA dated 09/01/24: FINDINGS: The bone mineral density of the lumbar spine is 0.969 g/cm2, corresponding to a T-score of -1.7, and a Z-score of 0.3. This is indicative of osteopenia. This represents a BMD change of -0.6% compared to the prior exam. This is not statistically significant. The bone mineral density of the left total hip is 0.686 g/cm2, corresponding to a T-score of -2.6, and a Z-score of -0.8. This is indicative of osteoporosis. This represents a BMD change of -5.1% compared to the prior exam. This is statistically significant. The bone mineral density of the left femoral neck is 0.670 g/cm2, corresponding to a T-score of -2.6, and a Z-score of -0.7. This is indicative of osteoporosis. This represents a BMD change of -1.0% compared to the prior exam. MM/XR DEXA axial skeleton IMPRESSION: Based on bone mineral density, and according to World Health Organization (WHO) criteria, the diagnosis is consistent with osteoporosis. Labs: [facility] Medical History (Updated 09/05/24 @ 09:57 by Carolina Murrell MD) Allergic rhinitis History of adenomatous polyp of colon Arthritis Numbness Murmur RAMPART (hard of hearing) Full dentures Personal history of nicotine dependence SI (sacroiliac) joint dysfunction Compression deformity of vertebra Lumbar back pain with radiculopathy affecting left lower extremity Vasomotor symptoms due to menopause Encounter for monitoring alendronate therapy COVID-19 vaccine series completed Hepatitis C COPD (chronic obstructive pulmonary disease) Tubular adenoma of colon Postmenopause Breast cancer screening by mammogram Osteoporosis Surgical History S/P lumbar spinal fusion Hx of blepharoplasty Hx of tubal ligation Hx of dilation and curettage H/O colonoscopy Social History Household Members: Spouse Housing: Apartment Are you a primary care director to a significant other at home: No Do you presently have visiting nurse or other home services: No Alcohol intake: former Comment: aware of trip hazards Patient Tobacco Use Status: Former Tobacco user Tobacco use type: Cigarette e-Cigarette/Vaping Use: Currently Using Second Hand Smoke Exposure: Yes Substance Use Type: Marijuana service: No Current occupational status: retired Cognitive needs: No Hearing needs: Yes Vision needs: No Physical Exam Vital Signs: Last Vital Signs Pulse 94 10/31/24 07:52 BP 92/60 10/31/24 07:52 Pulse Ox 96 10/31/24 07:52 Oxygen Delivery Method Room Air 10/31/24 07:52 BMI result Body Mass Index 23.6 Assessment & Plan Assessment & Plan (1) Osteoporosis: Code(s): M81.0 - Age-related osteoporosis without current pathological fracture Category: Medical Qualifiers: Osteoporosis type: age-related Presence of current pathological fracture: without current pathological fracture Qualified Code(s): M81.0 - Age-related osteoporosis without current pathological fracture Plan: This is a 69-year-old white female with a history of osteoporosis and partial secondary workup. Recent DEXA showed stability in the bone density after 5 years of the alendronate Plan is to complete the secondary workup by checking a phosphorus, TSH, free T4, 24 hour urine for calcium and creatinine, urine immunofixation. Will ensure 1200 mg of calcium and continued vitamin-D supplementation. We will also check urine NTX. If urine NTX is suppressed we will continue drug holiday with calcium and vitamin-D. If urine NTX is elevated could consider reinitiating the bisphosphonate or using Prolia. If bone density declines on subsequent bone density could consider using anabolic therapy and future 1. Osteoporosis The patient has been diagnosed with osteoporosis for approximately 10 years and was previously treated with alendronate for five years. She reports no fractures and no adverse effects from the medication. The plan includes maintaining a dietary intake of 1200 mg of calcium daily, primarily through dietary sources, and continuing vitamin D3 supplementation. A 24-hour urine collection for calcium will be conducted in six weeks to assess calcium levels and bone turnover markers. Follow-up is scheduled in four months to review the results and adjust the management plan as necessary. I discussed with the patient the nature of osteoporosis, emphasizing the importance of calcium and vitamin D intake. We reviewed the previous use of alendronate and its effects. I explained the need for a 24-hour urine collection to assess calcium levels and bone turnover markers. We also discussed the potential for future pharmacologic interventions if necessary, based on the results of the urine test and bone density assessments. Follow-up was planned for four months to evaluate the results and adjust the treatment plan accordingly. The patient had an opportunity to ask questions regarding treatment plan. The patient expressed understanding and agreement with the above treatment plan. Patient was informed and verbally consented to the use of an ambient scribe for clinic note documentation during this visit. Orders: Orders Phosphorus Today M81.0 - Age-related osteoporosis without current pathological fracture Free T4 (Free Thyroxine) Today M81.0 - Age-related osteoporosis without current pathological fracture Calcium, 24 Hr Ur Today M81.0 - Age-related osteoporosis without current pathological fracture Creatinine, 24 Hr Group Today M81.0 - Age-related osteoporosis without current pathological fracture Collagen Crosslinks NTX 6 Weeks M81.0 - Age-related osteoporosis without current pathological fracture Thyroid Stimulating Hormone Today M81.0 - Age-related osteoporosis without current pathological fracture Immunofixation, Random Urine Today M81.0 - Age-related osteoporosis without current pathological fracture Coding Level of Care Code New Pt Level 4 (94093) Diagnoses Age-related osteoporosis without current pathological fracture M81.0 Osteoporosis type: age-related Presence of current pathological fracture: without current pathological fracture
[2024-10-31 07:52] VITALS: BP 92/60; PULSE 94; O2SAT 96; BMI 23.6
== END 2024-10-31 08:38 | disposition home or self-care (01) ==
LOC: HO.ENCR 07:47
PROVIDERS: PCP Internal Medicine; Visit Provider Internal Medicine Endocrinology, Diabetes & Metabolism
DX: M81.0 Age-related osteoporosis without current pathological fracture (principal)
CPT/HCPCS: 99204

== ENCOUNTER → 2024-10-31 07:46 | Outpatient (BNVA) | payer MEDICARE, SELFPAY | PROVIDERS: PCP Internal Medicine; Visit Provider Internal Medicine Endocrinology, Diabetes & Metabolism | DX: M81.0 Age-related osteoporosis without current pathological fracture (principal) | CPT/HCPCS: 99202 ==

== ENCOUNTER 2024-12-04 06:31 | Outpatient (REF) | payer MEDICARE, SELFPAY ==
--- OUTSIDE RECORDS SUMMARY | 2024-05-04 05:00 | XMS_ITS ---
Author Organization [facility] Address [address] [place] [address] Care Team Providers Care Sand Car Worker Name Role Phone Carolina Murrell MD Primary Care Provider Severo Leal [phone] REASON FOR VISIT Patient presents today for fibrosis Encounters Encounter Location Date Provider Diagnosis [facility] [address] [place] [address] 05/04/2024 Severo Carvalho Plan Of Treatment Next Appt Details Provider Name:Severo Carvalho , 08/16/2025 09:20:00 AM, [address], [address], [place], [address], Progress Notes * LIZETTE SONI GDO B:1955 (69 yo F)Acc No.[id number]:05/04/2024 Progress Notes Patient: Denzel LIZETTE DOMÍNGUEZ Provider: Manuel Carvalho MD :1955 A ge:68 Y S ex:Female Date:05/04/2024 Address:[place] Pcp:Carolina Murrell MD Subjective: * Chief Complaints: * 1 . Patient presents today for fibrosis. * Medical History: Objective: * Vitals: Assessment: Plan: * Treatment: * * The named appointment provid er may or may not be the originator of this progress note, and it is not deemed complete until electronically signed by the appointment provider. Sign off status: Pending * Provider: Manuel Carvalho MD Date: 0 05/04/2024 Generated for Vanna arevalo/Elpidio/Mere on: 06:35 AM EDT
--- OUTSIDE RECORDS SUMMARY | 2024-12-04 06:36 | XMS_ITS | Patient Health Record ---
Author Organization [facility] Address [address] [place] [address] Care Team Providers Care Surgeon Assistant Name Role Phone Handy GATES, [place] Primary Care Provider Severo Leal Unavailable [phone] Allergies No Known Allergies Results Component Value Reference Range Notes Prothrombin Time INR Reviewed date:08/18/2024 09:06:23 PM Interpretation: Performing Lab:[facility], [address] [place] [id number] Notes/Report: Prothrombin Time 11.8 10.9-12.4 [employer] [...] ff Reviewed date:08/18/2024 09:06:08 PM Interpretation: Performing Lab:[address] [address] Notes/Report: White Blood Count 6.9 4.8-10.8 X10*3/uL [...] Panel Reviewed date:08/18/2024 09:05:53 PM Interpretation: Performing Lab:[address] [address] Notes/Report: Bilirubin Total 0.3 0.0-1.0 mg/dL Bilirubin Direct 0.1 0.0-0.5 mg/dL Aspartate Amino Transferase 44 5-31 U/L Alanine Aminotransferase 39 0-31 U/L Total Protein 6.9 6.5-8.0 g/dL Albumin Level 4.3 3.5-5.0 g/dL Alkaline Phosphatase 69 39-117 U/L Alpha Fetoprotein Reviewed date:08/27/2024 12:50:44 PM Interpretation: Performing Lab:[address] [address] Notes/Report: Alpha Fetoprotein 3.1 Reference Range: <6.1 [...] of disease. THIS TEST WAS PERFORMED AT: [facility] [address] [place] [phone] CHICO LU MD Liver Fibrosis Pnl Reviewed date:08/27/2024 12:50:27 PM Interpretation: Performing Lab:[facility], [address] [place] [phone] Notes/Report: Liver Fibrosis Score 0.25 Liver Fibrosis [...] a>0.62 and a<=1.00 : A3 (severe activity) CCF-Yhppy-1-Macroglobulin 326 106-279 mg/dL FIB-Haptoglobin 159 43-212 mg/dL FIB-Apolipoprotein A1 159 101-198 mg/dL FIB-Total Bilirubin 0.3 0.2-1.2 mg/dL FIB-GGT 12 3-65 U/L FIB-ALT 24 6-29 U/L Reference ID [id number] Footnote SEE NOTE The reliability of results [...] The performance characteristics have been determined by [facility]. It has not been cleared or approved by the U.S. Food and Drug Administration. Performance characteristics refer to the analytical performance of the test. [employer], [employer], the associated logo, [employer] and all associated [employer] hooks are the registered trademarks of [employer]. All third constitution party hooks - (R) and (TM) - are the property of their respective owners. (C) 4459-7034 [employer]. All rights reserved. THIS TEST WAS PERFORMED AT: [employer] [facility] [address] [place] [address] JOSHUA BEAVER MD,PHD,GITA US abdomen comp w elastograp hy (Not yet reviewed by provider) Interpretation: Performing Lab: Notes/Report: [address] [address] Ultrasound Report Signed Patient: Lizette Soni MR#: [id number] : 1955 Acct:[id number] Age/Sex: 69 / F ADM Date: 10/03/24 Loc: HO.US Attending Dr: Severo Carvalho MD Ordering Physician: Severo Carvalho MD Date of Service: 10/03/24 Procedure(s): US abdomen comp w elastography Accession Number(s): [id number] cc: [place] Murrell MD; Severo Carvalho MD [...] OV> 10/03/2443 DD/ 9 TD/TT: 10/03/24 0850 Commercial Credit Officer: Reason For Referral No Information Medications Medication SIG (Take, Route, Frequency, Duration) Notes Start Date End Date Status Fluticasone Propionate 50 MCG/ACT 1 spray in each nostril Nasally Once a day Active Spiriva Respimat 1.25 MCG/ACT 2 puffs Inhalation Once a day Active Vitamin D3 1000 UNIT 1 tablet Orally Onc e a day Active Albuterol Sulfate HFA 108 (90 Base) MCG/ACT Inhalation; Duration: 50 Active Immunizations Vaccine Route Administration Date Status [...] Problem Status W/U Status Risk Notes Problem Screening for malignant neoplasm of colon (489953727) Encounter for screening for malignant neoplasm of colon (Z12.11) Active confirmed Problem History of adenomatous polyp of colon (480199843) History of adenomatous polyp of colon (Z86.010) Active confirmed Problem Screening for malignant neoplasm of rectum (042847214) Encounter for screening for malignant neoplasm of rectum (Z12.12) Active confirmed Problem History of hepatitis C (11896263268492) History of hepatitis C (Z86.19) Active confirmed Problem Hepatic fibrosis (disorder) (82723514) Liver fibrosis (K74.0) Active confirmed Problem Diverticulosis of colon (566645391) Diverticulosis of colon (K57.30) Active confirmed Problem Hepatic fibrosis (disorder) (35506207) Liver fibrosis (K74.00) Active confirmed Vital Signs Blood pressure diastolic 77 mm Hg 08/15/2024 Height 62 in 08/15/2024 Blood pressure systolic 111 mm Hg 08/15/2024 Weight 126 lbs 08/15/2024 BMI 23.04 kg/m2 08/15/2024 Encounters Encounter Location Date Provider Diagnosis [facility] [address] [place] [address] 08/15/2024 Severo Carvalho Encounter for screening for malignant neoplasm of colon Z12.11 ; Liver fibrosis K74.00 ; History of hepatitis C Z86.19 and History of adenomatous polyp of colon Z86.010 [facility] [address] [place] [address] 04/20/2024 Severo Carvalho [facility] [address] [place] [phone] 08/15/2024 Severo Carvalho Assessments Encounter Date Diagnosis (ICD [...] elastography 5 US abdomen comp w elastography 5 US abdomen comp w elastography 4 Future Test Test Name Order Date COLONOSCOPY 04/22/2016 COLONOSCOPY 01/19/2019 COLONOSCOPY 10/30/2020 Next Appt Details Provider Name:Severo Carvalho , 08/16/2025 09:20:00 AM, [address] [place] [address], [address], [place], [address], Insurance Providers Payer Name Payer Address Payer Phone Subscriber Number Group Number Insured Name Patient Relationship to Insured Coverage Start Date Coverage End Date [facility] [address] [address] [place] [address] [phone] [id number] LIZETTE SONI Self - patient is the insured [facility] [address] [place] [phone] [id number] LIZETTE SONI Self - patient is the insured Medical (General) History Medical History History ICD Code Denies [place],DM,CVA,renal disease COPD Negative screening colonoscopy 05-18-2005 Screening colonoscopy 06/2016 - flat > 1cm [...]
[2024-12-08 18:44] LABS: NTXCreaRU 82 mg/dL (20-275)
== END 2024-12-04 06:32 | disposition home or self-care (01) ==
LOC: HO.HMGCLDS 06:31
PROVIDERS: PCP Internal Medicine; Visit Provider Internal Medicine Endocrinology, Diabetes & Metabolism
DX: M81.0 Age-related osteoporosis without current pathological fracture (principal)
CPT/HCPCS: 82523; 86335

== ENCOUNTER 2025-01-20 07:36 | Outpatient (REF) | payer MEDICARE, SELFPAY ==
--- NOTE | ~2025-01-20 | CT_ITS ---
CLINICAL HISTORY: Z98.1 - Arthrodesis status CT lumbar spine without contrast Comparison: 06/15/2024 radiograph Findings: Four non rib-bearing lumbar vertebrae the lowest of which is presumed to be L5 for descriptive purposes. No acute fracture. L4/L5: TLIF with unremarkable hardware. Redemonstration of grade 1 degenerative anterolisthesis. No definite evidence of intervertebral body cage incorporation or bridging bony trabeculations at level of the disc. Questionable (limited evaluation due to streak artifacts from hardware) focal (less than 50%) fusion of the right facet joint. No significant left facet joint fusion. Vacuum disc phenomenon and significant narrowing of the L5/S1 disc redemonstrated. Vacuum disc phenomena noted from L1/L2 to L3/L4. Degenerative interspinous process narrowing most conspicuous at L3/L4 and L5/S1. Incompletely evaluated small right basilar atelectasis/scarring. Atherosclerotic calcifications. Mild partial left adrenal gland hyperplasia. IMPRESSION: Four non rib-bearing lumbar vertebrae the lowest of which is presumed to be L5 for descriptive purposes. L4/L5: TLIF with unremarkable hardware. Redemonstration of grade 1 degenerative anterolisthesis. No definite evidence of intervertebral body cage incorporation or bridging bony trabeculations at level of the disc. Questionable (limited evaluation due to streak artifacts from hardware) focal (less than 50%) fusion of the right facet joint. No significant left facet joint fusion. This document has been electronically signed by: Ena Rowe MD on 01/22/2025 11:56:24
== END 2025-01-20 07:37 | disposition home or self-care (01) ==
LOC: HO.CT 07:36
PROVIDERS: PCP Internal Medicine; Visit Provider Physician Assistant
DX: Z98.1 Arthrodesis status (principal)
CPT/HCPCS: 72131

== ENCOUNTER → 2025-01-20 07:38 | Outpatient (BNV) | payer MEDICARE, SELFPAY | PROVIDERS: PCP Internal Medicine; Visit Provider Radiology Diagnostic Radiology | DX: Z98.1 Arthrodesis status (principal) | CPT/HCPCS: 72131 ==